=== PATIENT | male | born 1935 | race Caucasian/White ===

== ENCOUNTER 2020-07-31 13:18 | Outpatient (REF) | payer MEDICARE, SELFPAY ==
--- NOTE | 2020-07-31 13:20 | US_ITS ---
EXAMINATION: BILATERAL LOWER EXTREMITY DUPLEX ULTRASOUND CLINICAL INFORMATION: History of peripheral vascular disease. TECHNIQUE: Duplex Doppler techniques with wave form analysis and measurement of velocities in the common femoral, profunda femoral, superficial femoral, popliteal and tibial arteries was performed bilaterally. COMPARISON: None FINDINGS: LOWER EXTREMITY DUPLEX ULTRASOUND: RIGHT LEG: Common femoral artery: 95.3 cm/s, Diastolic flow reversal: Yes Profunda femoris artery: 101 cm/s, Diastolic flow reversal: Yes Superficial femoral artery (proximal): 89.7 cm/s, Diastolic flow reversal: Yes Superficial femoral artery (mid): 64.8 cm/s, Diastolic flow reversal: Yes Superficial femoral artery (distal): 65.3 cm/s, Diastolic flow reversal: Yes Popliteal artery: 44.8 cm/s, Diastolic flow reversal: Yes Posterior tibial artery: 84.5 cm/s, Diastolic flow reversal: Yes LEFT LEG: Common femoral artery: 114 cm/s, Diastolic flow reversal: Yes Profunda femoris artery: 60 cm/s, Diastolic flow reversal: Yes Superficial femoral artery (proximal): 73 cm/s, Diastolic flow reversal: Yes Superficial femoral artery (mid): 57.6 cm/s, Diastolic flow reversal: Yes Superficial femoral artery (distal): 65.9 cm/s, Diastolic flow reversal: Yes Popliteal artery: 56.6 cm/s, Diastolic flow reversal: Yes Posterior tibial artery: 67.7 cm/s, Diastolic flow reversal: Yes US/US arterial duplex LE BI IMPRESSION: RIGHT LEG: No evidence of hemodynamically significant arterial occlusive disease. LEFT LEG: No evidence of hemodynamically significant arterial occlusive disease.
== END 2020-07-31 13:19 | disposition home or self-care (01) ==
LOC: HO.US 13:18
PROVIDERS: Visit Provider Internal Medicine
DX: I73.9 Peripheral vascular disease, unspecified (principal)
CPT/HCPCS: 93925

== ENCOUNTER 2020-08-16 10:19 | Day surgery (SDC) | payer MEDICARE, SELFPAY ==
[2020-08-09 15:09] VITALS: BMI 27.3
--- NOTE | 2020-08-15 09:02 | HO.ANESPROP2 ---
HPI - Anesthesia Eval Consult details Narrative: 85yo M for Colonoscopy Cardiology OV 05/2020 - stable for 6 month f/u. No change to regimen. PMFSH Active Problems Active Problems: All Active Problems (Updated 08/09/20 @ 15:08 by Jessenia Mcgill) Chronic myelogenous leukemia (CML), [id number] (Acute) PAD (peripheral artery disease) (Acute) Atrial fibrillation (Acute) Hypertension (Acute) Obstructive sleep apnea (Acute) Hypercholesterolemia (Acute) GERD (gastroesophageal reflux disease) (Acute) Coronary artery disease (Acute) Past Medical History Medical History Aortic stenosis Atrial fibrillation Benign prostatic hyperplasia Coronary artery disease GERD (gastroesophageal reflux disease) Glaucoma History of heart attack Hypercholesterolemia Hypertension Leg pain Moderate aortic stenosis Obstructive sleep apnea Sleep apnea Vitamin B12 deficiency Family History Family History Father No problems noted. Mother No problems noted. Brother Leukemia AML (acute myeloblastic leukemia) Son In good health Daughter In good health Surgical History Surgical History H/O rectal polypectomy History of cataract surgery History of cholecystectomy History of esophagogastroduodenoscopy (EGD) History of eye surgery History of tonsillectomy Hx of colonoscopy Status post right knee replacement Social History Social History (Updated 08/09/20 @ 15:09 by Jessenia Mcgill) Alcohol intake: current Alcohol intake frequency: holidays/special occasions only Smoking Status: Former smoker Meds Allergies Allergy/AdvReac Type Severity Reaction Status Date / Time No Known Allergies Allergy Verified 08/16/20 11:33 [No Known Allergies*] Home Medications Medication Instructions Recorded Confirmed Last Taken Type B12 1 tab PO DAILY 06/27/20 07/19/20 Unknown History amiodarone 100 mg PO DAILY 06/27/20 07/19/20 Unknown History aspirin 81 mg PO DAILY 06/27/20 07/19/20 08/09/20 History brimonidine 1 drp OPHTHALMIC (EYE) BID 06/27/20 07/19/20 Unknown History ferrous sulfate 325 mg PO DAILY 06/27/20 07/19/20 08/09/20 History hydrochlorothiazide 12.5 mg PO DAILY PRN 06/27/20 07/19/20 Unknown History imatinib 600 mg PO DAILY 06/27/20 07/19/20 Unknown History latanoprost 1 drp OPHTHALMIC (EYE) DAILY 06/27/20 07/19/20 Unknown History metoprolol succinate 50 mg PO DAILY 06/27/20 07/19/20 Unknown History omeprazole 20 mg PO BID 06/27/20 07/19/20 Unknown History timolol 1 drp OPHTHALMIC (EYE) DAILY 06/27/20 07/19/20 Unknown History ascorbic acid (vitamin C) 1,500 mg tab PO .QD tab 07/19/20 07/19/20 Unknown History tablet folic acid 1 mg tablet 1 mg PO DAILY 07/19/20 07/19/20 Unknown History Exam Exam Date and Time: August 15, 2020 0902 Height,Weight and Vital Signs: Height 5 ft 8 in Weight 81.647 kg Narrative Narrative: Echo 10/2018 Nml LV sys function Impaired relax LA mild dilated Mod Mild MR RV sys pressure nml No pericardial effusion EKG 11/2018 SR with 1st AV block Nonspec ST and T wave abn Assessment and Plan Assessment Anesthesia Assessment: Chart Reviewed
[2020-08-16 11:36] VITALS: BP 156/53; PULSE 47; RESP 18; TEMP 36.1; O2SAT 99
[2020-08-16] MEDS: Lactated Ringers 1,000 ML 50 ML IVCONT (12:01)
[2020-08-16 13:27] VITALS: BP 134/64; PULSE 58; RESP 12; TEMP 36; O2SAT 97
--- NOTE | 2020-08-16 13:30 | PM.OP ---
Brief Operative Note Date of Service: 08/16/20 Pre-op diagnosis: Screening Post-op diagnosis: other (Colon polyp) Procedure: Colonoscopy to cecum and TI with snare polypectomy and placement of Resolution clips x 2 Surgeon: Darius Wheeler Anesthesia: MAC Estimated blood loss (mL): 3.0 Pathology: other (A. Proximal ascending colon polyp) Condition: stable Disposition: PACU
[2020-08-16 13:45] VITALS: BP 115/67; PULSE 54; RESP 18; TEMP 36; O2SAT 95
--- NOTE | 2020-08-16 13:53 | OP_ITS ---
SURGEON: Darius Wheeler MD INDICATIONS: Full consent has been obtained from him for this, including risks of bleeding and perforation. PREOPERATIVE DIAGNOSIS: POSTOPERATIVE DIAGNOSIS: PROCEDURE PERFORMED: Colonoscopy to the cecum and terminal ileum with snare polypectomy and placement of 2 resolution clips. ESTIMATED BLOOD LOSS: COMPLICATIONS: ANESTHESIA: Monitored anesthesia care. ASSISTANTS: SPECIMENS: PREOPERATIVE DIAGNOSES: Colorectal cancer screening and personal history of tubular adenoma of the colon. POSTOPERATIVE DIAGNOSES: Colorectal cancer screening and personal history of tubular adenoma of the colon, colon polyp, diverticulosis and internal hemorrhoids. DESCRIPTION OF PROCEDURE: The patient was placed in the left lateral decubitus position. The digital rectal exam revealed no abnormalities. The Olympus video pediatric colonoscope was entered into the rectum and advanced easily to the cecum. Once in the cecum, I did identify normal-appearing cecal pouch with appendiceal orifice and a normal-appearing ileocecal valve. The terminal ileum was cannulated and appeared normal. The scope was withdrawn back in the colon. The entire cecum and ileocecal valve appeared normal. The scope was slowly withdrawn assessing all mucosal surfaces carefully. Preparation was excellent. In the very proximal ascending colon, in the area inferior to the lower portion of the ileocecal valve, was a flat but raised approximately 12-15 mm polyp, which was snared and removed in piecemeal fashion and recovered by suction. The polypectomy site appeared to be clean, without any sign of residual polyp nor bleeding. Two resolution clips were placed on the polypectomy site with good deployment and good hemostasis. I did not visualize any other polyps, colitis, nor angiodysplasia. There was a mild amount of sigmoid diverticulosis. In the rectum, scope was retroflexed visualizing internal hemorrhoids, but no other pathology. The rectal mucosa appeared normal. The scope was straightened out and withdrawn from the patient. He tolerated the procedure well and was returned to recovery area in stable condition. IMPRESSION: 1. Colon polyp, status post snare polypectomy. 2. Diverticulosis. 3. Internal hemorrhoids. PLAN: The results of the pathology will be checked. At this point given these findings and his age, I do not think he will need any further colonoscopies in the future. He was advised not to use any aspirin or NSAIDs for 1 week. MD JOE Campuzano/MARGOL / [id number] SHARMIN
== END 2020-08-16 14:23 | disposition home or self-care (01) ==
PROVIDERS: PCP Internal Medicine; Visit Provider Internal Medicine
PROC: 0DJD8ZZ Inspection of Lower Intestinal Tract, Via Natural or Artificial Opening Endoscopic (ICD-10-PCS; CPT 45378; principal; 2020-08-16 12:00)
DX: Z12.11 Encounter for screening for malignant neoplasm of colon (principal); D12.2 Benign neoplasm of ascending colon; K57.30 Diverticulosis of large intestine without perforation or abscess without bleeding; K64.8 Other hemorrhoids; Z86.010 Personal history of colon polyps; I10 Essential (primary) hypertension; I25.2 Old myocardial infarction; Z79.82 Long term (current) use of aspirin; Z79.899 Other long term (current) drug therapy
CPT/HCPCS: 45385; 88305

== ENCOUNTER 2020-09-28 07:23 | Outpatient (REF) | payer MEDICARE, SELFPAY ==
[2020-09-28 08:06] LABS: MANUAL DIFF FLAG NO
[2020-09-28 08:15] LABS: Basophils Percent Auto 0.7 % (0-2); Eosinophils Absolute Auto 0.1 X10*3/uL (0.0-0.4); Hematocrit 29.9 % (42-52); Hemoglobin 9.9 g/dl (14.0-18.0); Imm Gran Abs Auto 0.01 X10*3/uL (0.00-0.03); Imm Gran Pct Auto 0.3 % (0.0-0.4); Lymphocytes Absolute Auto 0.9 X10*3/uL (1.2-4.9); Lymphocytes Percent Auto 31.4 % (20-40); Mean Corpuscular HGB Conc 33.1 g/dl (31.0-36.0); Mean Corpuscular Hemoglobin 36.4 pg (27.0-33.0); Mean Corpuscular Volume 109.9 fL (80-98); Mean Platelet Volume 9.6 fL (9.4-12.4); Monocytes Absolute Auto 0.2 X10*3/uL (0.1-1.2); Monocytes Percent Auto 7.2 % (2-11); Neutrophils Absolute Auto 1.7 X10*3/uL (2.0-8.3); Neutrophils Percent Auto 58.4 % (45-73); Platelet Count 170 X10*3/uL (160-400); Red Blood Count 2.72 X10*6/uL (4.60-5.80); Red Cell Distribution Width 14.7 % (11.0-16.0); White Blood Count 2.9 X10*3/uL (4.8-10.8)
[2020-09-28 08:49] LABS: B Type Natriuretic Peptide 121 pg/mL (<100)
[2020-09-28 10:01] LABS: Alanine Aminotransferase 8 U/L (0-40); Albumin Level 3.4 g/dL (3.5-5.0); Alkaline Phosphatase 47 U/L (39-117); Anion Gap 8 (12-20); Aspartate Amino Transferase 14 U/L (5-37); Bilirubin Total 0.3 mg/dL (0.0-1.0); Blood Urea Nitrogen 15 mg/dL (9-16); Calcium 7.8 mg/dL (8.4-10.2); Carbon Dioxide 30 mmol/L (22-29); Chloride 109 mmol/L (96-108); Cholesterol 123 mg/dL; Estimated Glomerular Filt Rate > 60; Free T4 (Free Thyroxine) 0.94 ng/dL (0.71-1.85); Glucose Random 100 mg/dL (60-115); HDL Cholesterol 36 mg/dL; LDL Cholesterol Calculated 74 mg/dl; Potassium 4.6 mmol/L (3.3-5.1); Sodium 142 mmol/L (135-145); Triglycerides 66 mg/dL; Uric Acid 4.9 mg/dL (3.4-7.0)
== END 2020-09-28 07:24 | disposition home or self-care (01) ==
LOC: HO.LAB 07:23
PROVIDERS: Absent Provider Internal Medicine Medical Oncology; PCP Internal Medicine; Visit Provider Internal Medicine
DX: C92.10 Chronic myeloid leukemia, BCR/ABL-positive, not having achieved remission (principal); E78.00 Pure hypercholesterolemia, unspecified; I48.0 Paroxysmal atrial fibrillation
CPT/HCPCS: 36415; 80053; 80061; 81206; 81207; 83880; 84439; 84443; 84550; 85025

== ENCOUNTER 2020-12-15 10:05 | Outpatient (REF) | payer MEDICARE, SELFPAY ==
--- NOTE | ~2020-12-15 | XR_ITS ---
EXAMINATION: XR BILATERAL HIPS WITH AP PELVIS CLINICAL INFORMATION: Sciatica COMPARISON: None TECHNIQUE: AP view of the pelvis and 2 views of each hip were obtained. FINDINGS: Bone alignment is normal. No fracture or dislocation is seen. There is mild bilateral hip arthritis with joint space narrowing and osteophyte formation. Bones of the pelvis are unremarkable. There are degenerative changes of the lower lumbar spine. Soft tissues are unremarkable. XR/XR hip BI w [id number] IMPRESSION: Mild bilateral hip arthritis.
[2020-12-15 10:58] LABS: MANUAL DIFF FLAG NO
[2020-12-15 11:06] LABS: Basophils Percent Auto 0.6 % (0-2); Eosinophils Percent Auto 1.1 % (0-4); Hematocrit 32.6 % (42-52); Hemoglobin 10.8 g/dl (14.0-18.0); Imm Gran Abs Auto 0.01 X10*3/uL (0.00-0.03); Imm Gran Pct Auto 0.3 % (0.0-0.4); Lymphocytes Absolute Auto 1.1 X10*3/uL (1.2-4.9); Mean Corpuscular HGB Conc 33.1 g/dl (31.0-36.0); Mean Corpuscular Hemoglobin 35.9 pg (27.0-33.0); Mean Corpuscular Volume 108.3 fL (80-98); Mean Platelet Volume 10.1 fL (9.4-12.4); Monocytes Absolute Auto 0.2 X10*3/uL (0.1-1.2); Monocytes Percent Auto 6.6 % (2-11); Neutrophils Absolute Auto 2.1 X10*3/uL (2.0-8.3); Neutrophils Percent Auto 60.4 % (45-73); Platelet Count 158 X10*3/uL (160-400); Red Blood Count 3.01 X10*6/uL (4.60-5.80); Red Cell Distribution Width 15.3 % (11.0-16.0); White Blood Count 3.5 X10*3/uL (4.8-10.8)
[2020-12-15 11:25] LABS: Alanine Aminotransferase 6 U/L (0-40); Albumin Level 3.7 g/dL (3.5-5.0); Alkaline Phosphatase 65 U/L (39-117); Anion Gap 11 (12-20); Aspartate Amino Transferase 16 U/L (5-37); Bilirubin Total 0.4 mg/dL (0.0-1.0); Blood Urea Nitrogen 18 mg/dL (9-16); Calcium 8.8 mg/dL (8.4-10.2); Carbon Dioxide 27 mmol/L (22-29); Chloride 112 mmol/L (96-108); Estimated Glomerular Filt Rate > 60; Glucose Random 103 mg/dL (60-115); Potassium 4.7 mmol/L (3.3-5.1); Sodium 145 mmol/L (135-145); Total Protein 5.5 g/dL (6.5-8.0)
[2020-12-15 11:37] LABS: Uric Acid 5.1 mg/dL (3.4-7.0)
[2020-12-15 11:44] LABS: Free T4 (Free Thyroxine) 1.05 ng/dL (0.71-1.85)
== END 2020-12-15 10:06 | disposition home or self-care (01) ==
LOC: HO.LAB 10:05
PROVIDERS: PCP Internal Medicine; Visit Provider Internal Medicine
DX: M54.30 Sciatica, unspecified side (principal); C92.11 Chronic myeloid leukemia, BCR/ABL-positive, in remission; I48.0 Paroxysmal atrial fibrillation; E78.00 Pure hypercholesterolemia, unspecified
CPT/HCPCS: 36415; 73521; 80053; 84439; 84550; 85025

== ENCOUNTER 2020-12-27 09:00 | Outpatient (RCR) | payer MEDICARE, SELFPAY ==
--- NOTE | 2021-05-04 11:25 | MHC.PT.DC ---
[facility] [place] [facility] [place] [facility] [place] Office [address] [phone] F: [phone] F: [phone] F: [phone] F: [phone] Physical Therapy Discharge Report Diagnosis: SCIATICA Date of Surgery: NA Date of Evaluation: 11/29/20 Date of Discharge: 05/04/21 Treatments to Date: 10 Cancellations to Date: No Shows to Date: Discharge Status: Independent with HEP Recommend MD Follow-up Discharge Summary: Pt LAST SEEN IN PT ON 01/05/21. PER THAT ASSESSMENT :' SIGNIFICANT FINDINGS ON MRI. MAY BENEFIT FROM NEUROSURGEON CONSULT.' PER PLAN FROM THAT NOTE:'DISCUSSION WITH PATIENT AND AGREED TO BE PUT ON HOLD UNTIL HE SPEAKS WITH DR LAL AND ?NEURO CONSULT' [ End ] Electronically signed by: DIAMOND PINTO PT Please sign and return to therapist. Thank you for your referral.
== END 2021-05-04 11:26 | disposition home or self-care (01) ==
LOC: HO.PT 09:00
PROVIDERS: PCP Internal Medicine; Visit Provider Internal Medicine
DX: M54.32 Sciatica, left side (principal)
CPT/HCPCS: 97110; 97140; 97161; 97530; 97535

== ENCOUNTER 2020-12-28 15:26 | Outpatient (REF) | payer MEDICARE, SELFPAY ==
--- NOTE | ~2020-12-28 | MR_ITS ---
MR LUMBAR SPINE WITHOUT CONTRAST CLINICAL INFORMATION: Lumbago with left-sided sciatica. COMPARISON: None available. TECHNIQUE: MRI of the lumbar spine was obtained using routine sequences without contrast. FINDINGS: There are 5 nonrib-bearing lumbar-type vertebral bodies. There is grade 1 anterolisthesis of L3 on L4 and L4 on L5. Small chronic endplate Schmorl's nodes throughout the thoracolumbar spine. Vertebral body heights overall maintained. Modic type I endplate signal changes at L1-L2 and L2-L3. There are no acute fractures. There is nonspecific bilateral perinephric stranding. Conus terminates at the L1 level. At T11-T12, a left lateral disc osteophyte and facet arthropathy result in moderate left-sided foraminal stenosis. L1-L2: There is a diffuse annular disc bulge and there is moderate bilateral facet arthropathy and ligamentum flavum thickening. Findings in concert result in bilateral subarticular zone stenosis with mass effect on the traversing L2 nerve roots bilaterally, as well as mild to moderate bilateral foraminal stenosis. L2-L3: There is a diffuse annular disc bulge the superimposed left paracentral disc protrusion that compresses the traversing left L3 nerve root within the left subarticular zone. Left lateral disc osteophyte and facet arthropathy result in moderate to severe left foraminal stenosis with mass effect on the exiting left L2 nerve root as well. L3-L4: There is a diffuse annular disc bulge with a superimposed left paracentral disc protrusion and a superiorly migrating right paracentral disc extrusion. Severe bilateral facet arthropathy and ligamentum flavum thickening. Findings in concert result in moderate to severe central canal stenosis, severe bilateral subarticular zone stenosis with compression of the traversing L4 nerve roots bilaterally as well as the right L3 nerve root within the right L3 lateral recess, and severe left and moderate to severe right foraminal stenosis with compression of the exiting left greater than right L3 nerve roots. L4-L5: Diffuse annular disc bulge that is in part disc osteophyte and severe bilateral facet arthropathy and ligamentum flavum thickening. Mild narrowing of the central canal. Severe right and moderate to severe left foraminal stenosis with compression of the exiting right greater than left L4 nerve roots. L5-S1: There is a shallow central disc protrusion that mildly indents the ventral thecal sac. Background annular disc bulge and severe bilateral facet arthropathy. Moderate left foraminal stenosis with mass effect on the exiting left L5 nerve root. MR/MR lumbar spine wo con IMPRESSION: At L5-S1, multifactorial degenerative changes result in moderate left foraminal stenosis with mild mass effect on the exiting left L5 nerve root. At L4-L5, advanced multifactorial degenerative changes result in severe right and moderate to severe left foraminal stenosis with compression of the exiting right greater than left L4 nerve roots. At L3-L4, grade 1 anterolisthesis and multifactorial degenerative changes including a left paracentral disc protrusion and a superiorly migrating right paracentral disc extrusion result in moderate to severe central canal stenosis, severe bilateral subarticular zone stenosis with compression of the traversing L4 nerve roots bilaterally, compression of the right L3 nerve root within the right L3 lateral recess, and severe left and moderate to severe right foraminal stenosis with compression of the exiting left greater than right L3 nerve roots. At L2-L3, a left paracentral disc protrusion compresses the traversing left L3 nerve root within the left subarticular zone and a left lateral disc osteophyte and facet arthropathy result in moderate to severe left foraminal stenosis with mass effect on the exiting left L2 nerve root as well. At L1-L2, multifactorial degenerative changes result in bilateral subarticular zone stenosis with mass effect on the traversing L2 nerve roots bilaterally.
--- NOTE | ~2020-12-28 | XR_ITS ---
EXAMINATION: PRE-MRI ORBIT SCREENING CLINICAL INFORMATION: Previous orbital surgery COMPARISON: None TECHNIQUE: 3 views FINDINGS: There is no radiopaque metallic foreign body seen in the orbits. The paranasal sinuses are well-aerated and clear. The mastoid sinuses are clear. No bony maxillofacial or orbital abnormality seen. XR/XR pre mri screening IMPRESSION: No radiopaque metallic foreign body seen in the orbits.
== END 2020-12-28 15:27 | disposition home or self-care (01) ==
LOC: HO.MRI 15:26
PROVIDERS: PCP Internal Medicine; Visit Provider Internal Medicine
DX: M54.42 Lumbago with sciatica, left side (principal); M54.41 Lumbago with sciatica, right side; G89.29 Other chronic pain
CPT/HCPCS: 72148

== ENCOUNTER 2021-02-10 18:09 | Inpatient (IN) | payer MEDICARE, SELFPAY ==
--- NOTE | ~2021-02-10 | CT_ITS ---
EXAMINATION: CT HEAD WITHOUT CONTRAST CT CERVICAL SPINE WITHOUT CONTRAST CLINICAL INFORMATION: Trauma. COMPARISON: None TECHNIQUE: Contiguous axial imaging was performed from the skull base to vertex without intravenous administration of contrast. Contiguous axial CT images of the cervical spine were obtained without contrast. Sagittal and coronal reformats were provided and reviewed. This CT examination was performed using dose optimization techniques as appropriate, variously including the following: *Automated exposure control. *Adjustment of mA and/or kV according to patient size (this includes techniques or standardized protocols for targeted exams where dose is matched to indication/reason for exam; i.e. extremities or head). *Use of iterative reconstruction technique. DLP: 1585 mGy-cm (total). FINDINGS: HEAD: There is no evidence of acute intracranial hemorrhage or territorial infarction. No abnormal mass effect or midline shift is seen. [id number] matter differentiation is well preserved. No extra-axial fluid collections are identified. The ventricles are normal in size. There is no abnormal attenuation within the brain parenchyma. Soft tissue swelling overlying the left frontal lobe. The calvarium is intact. The mastoid air cells and visualized portions of the paranasal sinuses are well aerated. CERVICAL SPINE: The cervical lordosis is maintained. Grade 1 anterolisthesis of C3 on C4. No acute fracture or subluxation. No loss of vertebral body height. Multilevel loss of intervertebral disc height, most prominent at L4-L5 and L5-S1. Prominent bilateral facet arthropathy with fusion of the right C2-C3 facets. No lytic or blastic osseous lesion. Unremarkable prevertebral soft tissues. No abnormal soft tissue mass or fluid collection. Small left thyroid calcification. Visualized lung apices are clear. Mild multilevel bilateral neural foraminal stenosis. CT/CT cervical spine wo con IMPRESSION: HEAD: No acute intracranial hemorrhage or mass effect. CERVICAL SPINE: No acute fracture. Grade 1 anterolisthesis of C3 on C4. Multilevel degenerative disease and bilateral facet arthropathy with mild multilevel bilateral facet arthropathy.
--- NOTE | ~2021-02-10 | CT_ITS ---
EXAMINATION: CT ABDOMEN AND PELVIS WITH CONTRAST CLINICAL INFORMATION: Perineal induration and fever; question abscess. COMPARISON: Prior CT examinations, most recently 02/10/2021. TECHNIQUE: Multidetector volumetric images were obtained from the superior aspect of the liver through the pubic symphysis following administration 85 mL of Omnipaque 350 intravenous contrast. Sagittal and coronal reformatted images were obtained on the technologist's workstation. Oral contrast: No This CT examination was performed using dose optimization techniques as appropriate, variously including the following: *Automated exposure control *Adjustment of mA and/or kV according to patient size (this includes techniques or standardized protocols for targeted exams where dose is matched to indication/reason for exam; i.e. extremities or head) *Use of iterative reconstruction technique DLP: 508 mGy-cm FINDINGS: LUNG BASES: There are small bilateral pleural effusions. There are coronary artery atherosclerotic calcifications. LIVER, GALLBLADDER, AND BILIARY TREE: The liver is normal in size, shape, and attenuation. No focal hepatic lesion is seen. There is biliary gas, consistent with a prior sphincterotomy. The gallbladder is surgically absent. PANCREAS: Unremarkable. SPLEEN: Unremarkable. ADRENAL GLANDS: Unremarkable. KIDNEYS AND URETERS: The kidneys are normal in size, shape, and attenuation. No hydronephrosis, hydroureter, or calculi seen. There is nonspecific bilateral perinephric stranding and thickening of the pararenal fascia layers, which appears stable from prior CT examinations including 10/07/2016.. BLADDER: Unremarkable. GASTROINTESTINAL TRACT: There is a multiloculated fluid and gas collection situated circumferential to anal region (3:89). This finding is consistent with a perianal abscess. The abscess extends into the left anterolateral perianal subcutaneous tissues, where there is a further 5.4 x 3.0 cm abscess cavity (3:95). There is adjacent vigorous fat stranding, which extends anteriorly into the perineum. ABDOMINAL WALL: There is a tiny fat-containing umbilical hernia. There is mild generalized anasarca. LYMPH NODES: There are shotty, nonpathologically enlarged para-aortic, bilateral iliac chain and inguinal lymph nodes. VASCULAR: There is mild to moderate aortoiliac atherosclerotic calcification. No abdominal aortic aneurysm is seen. PELVIC VISCERA: The prostate and seminal vesicles are unremarkable. Small fluid density bilateral hydroceles are suspected, incompletely included in the [id number]. OSSEOUS STRUCTURES: There is multi-level thoracolumbar degenerative disc disease, spondylosis and facet arthropathy. Degenerative disc disease is most pronounced extending from L1-L2 to L5-S1. No acute or aggressive osseous abnormality is seen. CT/CT abdomen pelvis w con IMPRESSION: 1. A perianal abscess is seen circumferential to the anus, with extension into the medial left gluteal subcutaneous tissues. There is adjacent vigorous fat stranding, which extends anteriorly into the perineum. Recommend General Surgery evaluation and management. 2. The gallbladder surgically absent. 3. Small bilateral hydroceles are questioned, incompletely included in the [id number]. 4. There are multi-level degenerative changes of the thoracolumbar spine. 5. There are small bilateral pleural effusions. 6. There is mild anasarca. A preliminary report was provided by the [facility] on 02/15/2021.
--- NOTE | ~2021-02-10 | XR_ITS ---
EXAMINATION: XR CHEST CLINICAL INFORMATION: Fever COMPARISON: 02/10/2021 TECHNIQUE: Frontal view of the chest was obtained. FINDINGS: No infiltrate. Lung paula are felt to be comparable to previous. There is no failure or effusion. The heart size is comparable to previous. Tortuous versus ectatic arch and descending aorta. XR/XR chest 1V IMPRESSION: No acute finding
--- NOTE | ~2021-02-10 | XR_ITS ---
EXAMINATION: XR CHEST CLINICAL INFORMATION: Fall. COMPARISON: Most recent chest CT dated 12/13/2018. TECHNIQUE: Frontal view of the chest was obtained. FINDINGS: Previously seen airspace consolidations have resolved. Multiple healed left-sided rib fractures are redemonstrated. No pleural effusion or pneumothorax. Stable cardiomediastinal silhouette. XR/XR chest 1V IMPRESSION: No acute cardiopulmonary findings. Resolution of previously seen bilateral airspace opacities.
--- NOTE | ~2021-02-10 | XR_ITS ---
EXAMINATION: XR KNEE, RIGHT CLINICAL INFORMATION: Fall. COMPARISON: None TECHNIQUE: AP and lateral views of the right knee. FINDINGS: Total right knee arthroplasty. No acute hardware or osseous fracture. No periarticular lucency to suggest loosening or infection. No significant joint effusion. Atherosclerotic calcifications. XR/XR knee RT 2V IMPRESSION: Total right knee arthroplasty without evidence of complication.
--- NOTE | ~2021-02-10 | CT_ITS ---
EXAMINATION: CT PELVIS WITHOUT CONTRAST CLINICAL INFORMATION: Pain following fall. COMPARISON: CT abdomen/pelvis dated 10/07/2016. TECHNIQUE: Helical scanning was performed with submillimeter collimation through the pelvis. Sagittal and coronal multiplanar 2-D reconstructions were obtained. This CT examination was performed using dose optimization techniques as appropriate, variously including the following: *Automated exposure control. *Adjustment of mA and/or kV according to patient size (this includes techniques or standardized protocols for targeted exams where dose is matched to indication/reason for exam; i.e. extremities or head). *Use of iterative reconstruction technique. DLP: 1585 mGy-cm (total). FINDINGS: PELVIS: No intra-abdominal mass or fluid collection. The visualized pelvic bowel loops are unremarkable. Prostate calcifications. No significant pelvic wall hernia. OSSEOUS STRUCTURES: No acute fracture or dislocation. Mild bilateral hip joint space narrowing with small marginal osteophytes and prominence of subchondral cystic change. No concerning lytic or blastic osseous lesion. Probable bone island within the left iliac. CT/CT pelvis wo con IMPRESSION: 1. No acute fracture or dislocation. 2. [id number] bilateral hip osteoarthritis.
[2021-02-10 18:17] VITALS: BP 120/61; BP 130/70; PULSE 108; PULSE 96; RESP 22; TEMP 37.4; O2SAT 99; BMI 26.6
--- NOTE | 2021-02-10 18:33 | ECG_ITS ---
Test Reason : FALL Blood Pressure : / mmHG Vent. Rate : 100 BPM Atrial Rate : 100 BPM P-R Int : 000 ms QRS Dur : 078 ms QT Int : 390 ms P-R-T Axes : 000 007 065 degrees QTc Int : 503 ms Accelerated Junctional rhythm Nonspecific ST and T wave abnormality Prolonged QT Abnormal ECG When compared with ECG of 13-DEC-2018 08:34, Junctional rhythm has replaced Sinus rhythm Referred By: Mathew Zavala Electronically Signed By:NAYELI HICKS
--- NOTE | 2021-02-10 18:33 | ED.FALL ---
HPI - Fall General Chief Complaint: Fall Stated Complaint: FALL. ?LOC. AMS Time Seen by Provider: 02/10/21 18:26 Source: EMS Mode of arrival: EMS Limitations: no limitations History of Present Illness HPI Narrative: 85-year-old male who reports history of atrial fibrillation was previously anticoagulated and now currently just taking aspirin, hypertension, hyperlipidemia, glaucoma and recently had surgery in the right eye at [facility], history of leukemia in remission who presents via EMS from home after family found him on the ground. Story is that he states he tripped yesterday evening and fell down a couple stairs hit his head he loss consciousness he subsequently went to stand up shortly after he became dizzy and passed out again he was found this evening about 12-18 hours later by son as he was stuck between the door of the bathroom and EMS was called assisted him up. States he knows that he lost balance and fell did not have any chest pain, he does have a abrasion to the right side of the forehead region he however denies any pain of the head, neck he does have cervical collar in place. He does report some slight pain in the bilateral hips and right knee. Additionally states he has not been drinking much fluids recently. MD complaint: fall Onset (ago): day(s) Fall witnessed: no Place fall occurred: home Loss of consciousness: yes Length of LOC: minutes(s) Prolonged down time: yes and unclear Symptoms prior to fall: other (Initially he states he had a mechanical fall subsequently went to stand up and had a syncopal episode) Location of injury: head Severity: moderate Associated symptoms (after fall): denies Related Data Home Medications Medication Instructions Recorded Confirmed amiodarone 100 mg tablet 100 mg PO DAILY 06/27/20 02/10/21 aspirin 81 mg tablet 81 mg PO DAILY 06/27/20 02/10/21 brimonidine 0.025 % eye drops 1 drp OPHTHALMIC (EYE) BID 06/27/20 02/10/21 metoprolol succinate 50 mg 50 mg PO DAILY 06/27/20 02/10/21 tablet,extended release 24 hr timolol 0.25 % eye drops 1 drp OPHTHALMIC (EYE) DAILY 06/27/20 02/10/21 ascorbic acid (vitamin C) 1,500 mg 1,000 tab PO .QD tab 07/19/20 02/10/21 tablet omeprazole 20 mg capsule,delayed 40 mg PO BEDTIME cap 11/07/20 02/10/21 release ferrous sulfate 325 mg (65 mg 325 mg PO DAILY 12/26/20 02/10/21 iron) tablet folic acid 400 mcg tablet 0.4 mg PO DAILY 12/26/20 02/10/21 latanoprost 1 drp ONCE 12/29/20 02/10/21 moxifloxacin 0.5 % eye drops drp OPHTHALMIC-RIGHT 02/10/21 pilocarpine HCl 2 % eye drops 1 drp OPHTHALMIC (EYE) QID 02/10/21 02/10/21 prednisolone acetate 1 % eye 1 drp OPHTHALMIC (EYE) 02/10/21 drops,suspension Allergies Allergy/AdvReac Type Severity Reaction Status Date / Time No Known Allergies Allergy Verified 12/26/20 16:31 [No Known Allergies*] Review of Systems Review of Systems: Constitutional: No Weight loss, No Fever, No Chills, No Night Sweats, No Fatigue, No Malaise ENT/Mouth: No Hearing loss, No Ear Pain, No Nasal Congestion, No Sinus Pain, No Hoarseness, No sore throat, No Rhinorrhea, No Swallowing Difficulty Eyes: No Eye Pain, No Swelling, No Redness, No Foreign Body, No Discharge, No Vision Changes Cardiovascular: No Chest Pain, No SOB, No Dyspnea on Exertion, No Orthopnea, No Edema, No Palpitations Respiratory: No Cough, No Sputum, No Wheezing, No Smoke Exposure, No Dyspnea Gastrointestinal: No Nausea, No Vomiting, No Diarrhea, No Constipation, No abdominal Pain, No Hematochezia, No Melena Genitourinary: no irregular bleeding, No Dysuria, No Urinary Frequency, No Hematuria, No Urinary Incontinence, No Urgency, No Flank Pain, No Urinary Flow Changes, No Hesitancy Musculoskeletal: No joint pain, No Myalgias, No Joint Swelling pain in the right knee and bilateral hip. Skin: No Skin Lesions, No rash Neuro: No Weakness, No Numbness, No Paresthesias, No Loss of Consciousness, No Dizziness, No Headache Psych: No Social Issues Heme/Lymph: No Bruising, No Bleeding,No Lymphadenopathy Endocrine: No Polyuria, No Polydipsia, No Temperature Intolerance Yes all other systems are reviewed and are negative PMFSH Past Medical History Medical History Aortic stenosis Atrial fibrillation Benign prostatic hyperplasia Coronary artery disease GERD (gastroesophageal reflux disease) Glaucoma History of heart attack Hypercholesterolemia Hypertension Leg pain Moderate aortic stenosis Obstructive sleep apnea Sleep apnea Status post placement of implantable loop recorder Vitamin B12 deficiency Surgical History H/O rectal polypectomy History of cataract surgery History of cholecystectomy History of esophagogastroduodenoscopy (EGD) History of eye surgery History of tonsillectomy Hx of colonoscopy Status post right knee replacement Family History Family History Father No problems noted. Mother No problems noted. Brother Leukemia AML (acute myeloblastic leukemia) Son In good health Daughter In good health Social History Social History Housing: Apartment Alcohol intake: current Alcohol intake frequency: holidays/special occasions only Patient Tobacco Use Status: Former Tobacco user Tobacco use type: Cigarette e-Cigarette/Vaping Use: Never Used Second Hand Smoke Exposure: No Advance Directives: No Advance Directives Information Provided: Yes service: Yes Current occupational status: retired Current occupational exposures/hazards: No Physical Exam Vital Signs: Vital Signs: Last Vital Signs Temp 98.2 F 02/11/21 01:22 Pulse 67 02/11/21 01:22 Resp 20 02/11/21 01:22 BP 106/54 L 02/11/21 01:22 Pulse Ox 98 02/11/21 01:22 Body Mass Index 26.6 Const: General: cooperative; No acute distress or intoxicated appearing Nutritional Appearance: average body habitus Orientation/consciousness: patient oriented x3 HENMT: Head: Yes normal to inspection Head images: 1. Superficial abrasion Ears: hearing grossly normal bilaterally Face images: 1. He has eye patch on the right eye from recent glaucoma surgery Eyes: General: appearance normal, both eyes and all related structures Visual Martin: normal visual martin by confrontation Neck: Neck: Yes normal visual inspection, No positive Brudzinski's sign, No positive Kernig's sign and No tender Thyroid: Thyroid normal Chest: Chest palpation & inspection: normal inspection of the chest Resp: Effort & Inspection: normal respiratory effort Auscultation: clear to auscultation bilaterally Cardio: Jugular venous distension: no JVD Rhythm: abnormal rhythm (Regularly irregular) GI: Inspection: Yes normal to inspection Percussion: Yes normal to percussion Auscultation: normal bowel sounds : General: Yes no CVA tenderness Back/Spine/Pelvis: Back: no CVA tenderness Skin: General skin exam: no rashes or lesions noted Neuro: General: patient oriented x3 Extrem: General: Yes normal to inspection Course Reevaluation(s) Reevaluation #1: Interviewed 85-year-old male with above history presenting with complaint of mechanical fall subsequent syncopal episode prolonged down time on the ground found by family. His only complaint upon arrival is some mild bilateral hip pain and right knee pain otherwise denies any other pain discomfort does have a large abrasion to the forehead region does have a cervical collar in place. He does have significant underlying history however he denies any other pain or discomfort no recent illness. He did void today and states he makes urine. Will check labs specifically rule out rhabdo, electrolytes, troponin, EKG, head and cervical spine CT as well as pelvis CT given his bilateral hip pains and right knee x-ray. No recent illness and no signs or symptoms or infectious allergy upon arrival. Does not have any symptoms to suggest acute CVA. Reevaluation #2: Labs reviewed CBC comes back with AGH of 8.5/23 slightly lower than his baseline lowers his van is 9.9/29 he denies any melena, his electrolytes show potassium 2.7, BUN 22, creatinine of 1.42 baseline around 1, CK of 02/16/2037, initial troponin of 6770 with albumin of 3.4. He denies any chest pain EKG nondiagnostic. Plan for hydration he received 1 L of fluid will continue with gradual hydration. He has no chest pain or shortness of breath or any other complaints. Imaging of his head, cervical spine, chest as well as pelvis and right knee without acute pathology. Plan for consultation with Cardiology and admission. Reevaluation #3: Repeat troponin without delta EKG repeat without any acute changes. Case discussed with Dr. Fernandez regarding recommendation for potential anticoagulation given elevated to open this is secondary to rhabdo and he recommends against anticoagulation. Case discussed with hospitalist for admission. Consultations Consultation #1: Cardiology Dr. Fernandez Consultation #2: Hospitalist Dr. Peters [facility] - Fall Lab Data Result diagrams: 02/10/21 18:55 02/10/21 18:55 Labs: Lab Results 02/10/21 02/10/21 02/10/21 Range/Units 18:55 18:55 18:55 WBC 8.2 (4.8-10.8) X10*3/uL RBC 2.36 L (4.60-5.80) X10*6/uL Hgb 8.5 L D (14.0-18.0) g/dl Hct 23.2 L D (42-52) % MCV 98.3 H (80-98) fL MCH 36.0 H (27.0-33.0) pg MCHC 36.6 H (31.0-36.0) g/dl RDW 14.6 (11.0-16.0) % Plt Count 137 L (160-400) X10*3/uL MPV 10.3 (9.4-12.4) fL Immature Gran % (Auto) Cancelled Neut % (Auto) Cancelled Lymph % (Auto) Cancelled [place] % (Auto) Cancelled Eos % (Auto) Cancelled Baso % (Auto) Cancelled Lymph # (Auto) Cancelled [place] # (Auto) Cancelled Eos # (Auto) Cancelled Baso # (Auto) Cancelled Abs Immat Gran (auto) Cancelled Absolute Neuts (auto) Cancelled Absolute Nucleated RBC 0.000 (0.0-0.012) X10*3/uL Nucleated RBC % (auto) 0.0 (0.0-0.2) /100WBC Neutrophils % (Manual) 53 (45-73) % Band Neutrophils % 29 H (3-5) % Lymphocytes % (Manual) 12 L (20-40) % Monocytes % (Manual) 4 (2-11) % Metamyelocytes % 2 % Abs Neuts (Manual) 6.7 (2.2-7.9) X10*3/uL Lymphocytes # (Manual) 1.0 (0.6-4.8) X10*3/uL Monocytes # (Manual) 0.3 (0.0-1.2) X10*3/uL Metamyelocytes # 0.2 X10*3/uL Platelet Estimate SLIGHTLY DECREASED (NORMAL) Plt Morphology Comment NORMAL RBC Morphology NOTED Polychromasia 2+ (3-5) /OIF Macrocytosis 1+ (5-14) /OIF PT 12.2 (9.9-13.0) SEC INR 1.1 (0.9-1.1) APTT 29.1 (24.1-38.0) SEC Sodium (135-145) mmol/L Potassium (3.3-5.1) mmol/L Chloride (96-108) mmol/L Carbon Dioxide (22-29) mmol/L Anion Gap (12-20) BUN (9-16) mg/dL Creatinine (0.5-1.4) mg/dL Estim Creat Clear Calc Estimated GFR Random Glucose (60-115) mg/dL Calcium (8.4-10.2) mg/dL Ferritin (20-250) ng/mL Total Bilirubin (0.0-1.0) mg/dL AST (5-37) U/L ALT (0-40) U/L Alkaline Phosphatase (39-117) U/L Total Creatine Kinase 2837 H (38-174) U/L Troponin I High Sens (<3.5-35.0) ng/L Total Protein (6.5-8.0) g/dL Albumin (3.5-5.0) g/dL Urine Color Urine Appearance Urine pH (5.0-8.0) Ur Specific [place] (1.005-1.025) Urine Protein (NEG-TRACE) MG/DL Urine Glucose (UA) (NEG) MG/DL Urine Ketones (NEG) MG/DL Urine Blood (NEG) Urine Nitrite (NEG) Ur Leukocyte Esterase (NEG) Urine RBC (0) /HPF Urine WBC (0-4) /HPF Ur Squamous Epith Cells /LPF Urine Bacteria /LPF Urine Mucus /LPF COVID-19 (ISMAEL) (Negative) COVID-19 Clin Com 02/10/21 02/10/21 02/10/21 Range/Units 18:55 18:55 18:55 WBC (4.8-10.8) X10*3/uL RBC (4.60-5.80) X10*6/uL Hgb (14.0-18.0) g/dl Hct (42-52) % MCV (80-98) fL MCH (27.0-33.0) pg MCHC (31.0-36.0) g/dl RDW (11.0-16.0) % Plt Count (160-400) X10*3/uL MPV (9.4-12.4) fL Immature Gran % (Auto) Neut % (Auto) Lymph % (Auto) [place] % (Auto) Eos % (Auto) Baso % (Auto) Lymph # (Auto) [place] # (Auto) Eos # (Auto) Baso # (Auto) Abs Immat Gran (auto) Absolute Neuts (auto) Absolute Nucleated RBC (0.0-0.012) X10*3/uL Nucleated RBC % (auto) (0.0-0.2) /100WBC Neutrophils % (Manual) (45-73) % Band Neutrophils % (3-5) % Lymphocytes % (Manual) (20-40) % Monocytes % (Manual) (2-11) % Metamyelocytes % % Abs Neuts (Manual) (2.2-7.9) X10*3/uL Lymphocytes # (Manual) (0.6-4.8) X10*3/uL Monocytes # (Manual) (0.0-1.2) X10*3/uL Metamyelocytes # X10*3/uL Platelet Estimate (NORMAL) Plt Morphology Comment RBC Morphology Polychromasia /OIF Macrocytosis /OIF PT (9.9-13.0) SEC INR (0.9-1.1) APTT (24.1-38.0) SEC Sodium 143 (135-145) mmol/L Potassium 2.7 L D (3.3-5.1) mmol/L Chloride 118 H (96-108) mmol/L Carbon Dioxide 13 L (22-29) mmol/L Anion Gap 15 (12-20) BUN 22 H (9-16) mg/dL Creatinine 1.42 H (0.5-1.4) mg/dL Estim Creat Clear Calc 36.7 Estimated GFR 47 Random Glucose 105 (60-115) mg/dL Calcium 8.3 L (8.4-10.2) mg/dL Ferritin 409 H (20-250) ng/mL Total Bilirubin 1.2 H (0.0-1.0) mg/dL AST 86 H (5-37) U/L ALT 41 H (0-40) U/L Alkaline Phosphatase 79 D (39-117) U/L Total Creatine Kinase (38-174) U/L Troponin I High Sens 6570.1 H* (<3.5-35.0) ng/L Total Protein 5.3 L (6.5-8.0) g/dL Albumin 3.4 L (3.5-5.0) g/dL Urine Color YELLOW Urine Appearance HAZY Urine pH 6.0 (5.0-8.0) Ur Specific [place] 1.020 (1.005-1.025) Urine Protein 1+ H (NEG-TRACE) MG/DL Urine Glucose (UA) NEG (NEG) MG/DL Urine Ketones 5 (NEG) MG/DL Urine Blood 3+ H (NEG) Urine Nitrite NEG (NEG) Ur Leukocyte Esterase NEG (NEG) Urine RBC 10-14 H (0) /HPF Urine WBC 1-4 (0-4) /HPF Ur Squamous Epith Cells TRACE /LPF Urine Bacteria TRACE /LPF Urine Mucus TRACE /LPF COVID-19 (ISMAEL) (Negative) COVID-19 Clin Com 02/10/21 02/10/21 Range/Units 21:14 22:37 WBC (4.8-10.8) X10*3/uL RBC (4.60-5.80) X10*6/uL Hgb (14.0-18.0) g/dl Hct (42-52) % MCV (80-98) fL MCH (27.0-33.0) pg MCHC (31.0-36.0) g/dl RDW (11.0-16.0) % Plt Count (160-400) X10*3/uL MPV (9.4-12.4) fL Immature Gran % (Auto) Neut % (Auto) Lymph % (Auto) [place] % (Auto) Eos % (Auto) Baso % (Auto) Lymph # (Auto) [place] # (Auto) Eos # (Auto) Baso # (Auto) Abs Immat Gran (auto) Absolute Neuts (auto) Absolute Nucleated RBC (0.0-0.012) X10*3/uL Nucleated RBC % (auto) (0.0-0.2) /100WBC Neutrophils % (Manual) (45-73) % Band Neutrophils % (3-5) % Lymphocytes % (Manual) (20-40) % Monocytes % (Manual) (2-11) % Metamyelocytes % % Abs Neuts (Manual) (2.2-7.9) X10*3/uL Lymphocytes # (Manual) (0.6-4.8) X10*3/uL Monocytes # (Manual) (0.0-1.2) X10*3/uL Metamyelocytes # X10*3/uL Platelet Estimate (NORMAL) Plt Morphology Comment RBC Morphology Polychromasia /OIF Macrocytosis /OIF PT (9.9-13.0) SEC INR (0.9-1.1) APTT (24.1-38.0) SEC Sodium (135-145) mmol/L Potassium (3.3-5.1) mmol/L Chloride (96-108) mmol/L Carbon Dioxide (22-29) mmol/L Anion Gap (12-20) BUN (9-16) mg/dL Creatinine (0.5-1.4) mg/dL Estim Creat Clear Calc Estimated GFR Random Glucose (60-115) mg/dL Calcium (8.4-10.2) mg/dL Ferritin (20-250) ng/mL Total Bilirubin (0.0-1.0) mg/dL AST (5-37) U/L ALT (0-40) U/L Alkaline Phosphatase (39-117) U/L Total Creatine Kinase (38-174) U/L Troponin I High Sens 6604.9 H* (<3.5-35.0) ng/L Total Protein (6.5-8.0) g/dL Albumin (3.5-5.0) g/dL Urine Color Urine Appearance Urine pH (5.0-8.0) Ur Specific [place] (1.005-1.025) Urine Protein (NEG-TRACE) MG/DL Urine Glucose (UA) (NEG) MG/DL Urine Ketones (NEG) MG/DL Urine Blood (NEG) Urine Nitrite (NEG) Ur Leukocyte Esterase (NEG) Urine RBC (0) /HPF Urine WBC (0-4) /HPF Ur Squamous Epith Cells /LPF Urine Bacteria /LPF Urine Mucus /LPF COVID-19 (ISMAEL) Negative (Negative) COVID-19 Clin Com See Note Discharge Plan Discharge Clinical Impression: Fall, Syncope, Elevated troponin, DELMA (acute kidney injury), Rhabdomyolysis Patient Disposition: Admitted As Inpatient Interventions: Admission Worksheet (ED) Last Done: 02/11/21 02:08 Discharge Date/Time: 02/11/21 02:10
--- NOTE | 2021-02-10 19:00 | PC.NURSE ---
Labs and UA obtained. concrete technician at bedside for EKG.
[2021-02-10] MEDS: 0.9 % Sodium Chloride 1,000 ML 999 ML IV (19:02)
[2021-02-10 19:08] LABS: Hematocrit 23.2 % (42-52); Hemoglobin 8.5 g/dl (14.0-18.0); Mean Corpuscular HGB Conc 36.6 g/dl (31.0-36.0); Mean Corpuscular Volume 98.3 fL (80-98); Mean Platelet Volume 10.3 fL (9.4-12.4); Platelet Count 137 X10*3/uL (160-400); Red Blood Count 2.36 X10*6/uL (4.60-5.80); Red Cell Distribution Width 14.6 % (11.0-16.0); White Blood Count 8.2 X10*3/uL (4.8-10.8)
[2021-02-10 19:09] LABS: Glucose Urine UA NEG (NEG); Leukocyte Esterase Urine NEG (NEG); Nitrite Urine NEG (NEG); UACC Culture Trigger NO; Urine Blood 3+ (NEG); Urine Ketones 5 MG/DL (NEG); Urine Protein 1+ MG/DL (NEG-TRACE)
[2021-02-10 19:11] LABS: Appearance Urine HAZY; Color Urine YELLOW
[2021-02-10 19:14] LABS: INTERNATIONAL NORM RATIO 1.1 (0.9-1.1); Prothrombin Time 12.2 SEC (9.9-13.0)
[2021-02-10 19:16] LABS: Bacteria Urine TRACE /LPF; Mucus Urine TRACE /LPF; Squamous Epithelial Cell Urine TRACE /LPF
[2021-02-10 19:17] LABS: Partial Thromboplastin Time 29.1 SEC (24.1-38.0)
--- NOTE | 2021-02-10 19:32 | PC.NURSE ---
Off to CT on hospital bed.
--- NOTE | 2021-02-10 19:37 | PC.NURSE ---
Pt returns from CT on hospital bed.
[2021-02-10 19:38] LABS: Band Neutrophils Percent 29 % (3-5); Lymphocytes Percent Manual 12 % (20-40); Metamyelocytes Absolute 0.2 X10*3/uL; Metamyelocytes Percent 2 %; Monocytes Absolute Manual 0.3 X10*3/uL (0.0-1.2); Monocytes Percent Manual 4 % (2-11); Neutrophils Absolute Manual 6.7 X10*3/uL (2.2-7.9); Neutrophils Percent Manual 53 % (45-73)
[2021-02-10 19:39] LABS: Macrocytosis 1+ (5-14) /OIF; Polychromasia 2+ (3-5) /OIF; RBC Morphology NOTED
[2021-02-10 19:40] LABS: Platelet Estimate SLIGHTLY DECREASED (NORMAL); Platelet Morphology Comment NORMAL
[2021-02-10 19:43] LABS: Alanine Aminotransferase 41 U/L (0-40); Albumin Level 3.4 g/dL (3.5-5.0); Alkaline Phosphatase 79 U/L (39-117); Anion Gap 15 (12-20); Aspartate Amino Transferase 86 U/L (5-37); Bilirubin Total 1.2 mg/dL (0.0-1.0); Blood Urea Nitrogen 22 mg/dL (9-16); Calcium 8.3 mg/dL (8.4-10.2); Carbon Dioxide 13 mmol/L (22-29); Chloride 118 mmol/L (96-108); Creatinine Clr Calc Pharmacy 36.7; Estimated Glomerular Filt Rate 47; Glucose Random 105 mg/dL (60-115); Potassium 2.7 mmol/L (3.3-5.1); Sodium 143 mmol/L (135-145); Total Protein 5.3 g/dL (6.5-8.0)
[2021-02-10 19:51] VITALS: BP 130/57; RESP 22; O2SAT 97
--- NOTE | 2021-02-10 20:13 | ECG_ITS ---
Test Reason : REPEAT Blood Pressure : / mmHG Vent. Rate : 084 BPM Atrial Rate : 084 BPM P-R Int : 204 ms QRS Dur : 084 ms QT Int : 416 ms P-R-T Axes : 089 002 038 degrees QTc Int : 491 ms Normal sinus rhythm Cannot rule out Inferior infarct , age undetermined Abnormal ECG When compared with ECG of 10-FEB-2021 19:01, Sinus rhythm has replaced Junctional rhythm Referred By: Mathew Zavala Electronically Signed By:NAYELI HICKS
[2021-02-10] MEDS: Potassium Chloride/H20 10 MEQ/100 ML PIGGYBACK 100 MEQ IV (20:23)
--- NOTE | 2021-02-10 20:46 | PC.NURSE ---
This RN updating family on pt condition and plan of care.
[2021-02-10 21:13] VITALS: BP 102/49; PULSE 80; RESP 24; O2SAT 100
--- NOTE | 2021-02-10 21:14 | PC.NURSE ---
Repeat Troponin obtained and sent. VSS.
--- NOTE | 2021-02-10 21:54 | PC.NURSE ---
Pt provided bedpan per request, was unable to have successful BM. Pt requesting stool softener, this RN to request from provider. Stretcher remains in lowest locked position, rails raised x 2, call kimble within reach. Pt's daughter Sveta at bedside.
--- NOTE | 2021-02-10 22:23 | PC.NURSE ---
HAT DESIGNER at bedside discussing results and plan of care. VSS at this time.
[2021-02-10 22:24] VITALS: BP 103/47; PULSE 78; RESP 18; O2SAT 97
[2021-02-10 23:25] LABS: COVID-19 Test Negative (Negative); IDNOW Serial# 9DD0AD1C
[2021-02-10] MEDS: Lactated Ringers 1,000 ML 100 ML IVCONT (23:25)
[2021-02-10 23:26] VITALS: BP 90/45; PULSE 76; RESP 16; TEMP 38; O2SAT 96
--- NOTE | 2021-02-10 23:27 | PC.NURSE ---
MD contacted via [place] regarding elevated temp and hypotension. LR infusing per MAR. Awaiting room assignment.
[2021-02-10 23:43] VITALS: TEMP 38.4
--- NOTE | 2021-02-10 23:50 | P.HPHOSP_ITS ---
History of Present Illness Date of Service: 02/10/21 Chief Complaint: Fall This is an 85-year-old male with past medical history of aortic stenosis, AFib, BPH, CAD, GERD, HTN, HLD, who presents to the hospital after fall and syncope. Patient reports that he was in the bathroom, his slipped fell head his head than loss consciousness, he woke up few minutes later, tried to get up, slipped for 2nd time hit his head again and once again loss consciousness this time he is not sure for how long but reports that he woke up and was unable to get out of his bathroom and was on the bathroom floor all night until the next day afternoon when his family checked on him and found him on the floor. Patient denies any post ictal symptoms. He reports that prior to falling he had no symptoms of dizziness, no chest pain, palpitations or shortness of breath. no headache, no change in vision. He reports that he has not been eating or drinking well and may be contributing to his fall. He denies any abdominal pain nausea or vomiting, no diarrhea constipation, no urinary symptoms. Patient did have injuries on the had as a result of his falls, with minimal bleeding. Vitals on arrival are significant for temp of 99.4 but developed a fever of 101.2 while in the ED, heart rate of 96, respiratory rate of 22, blood pressure 120/61 that dropped to 90/45 while in the ED, satting 99% on room air Labs are significant for WBC count of 8.2, hemoglobin of 8.5 which dropped from 10.7 from December 2020, hematocrit 23.2, MCV of 98.3, platelets of 137 143, normal lactic acid. potassium of 2.7, chloride of 118, BUN of 22, creatinine of 1.4 to with a baseline around 1.2, ferritin 409 AST of 86 ALT of 41, CPK of 2837, troponin of 6570 trended up to 6604 UA positive for RBC COVID-19 negative. Stool occult negative. Cardiology was consulted regarding with troponin and recommended against heparin subQ. Given his hypotension as well as fever patient was given sepsis IV fluid resuscitation, blood cultures sent. Review of Systems Review of Systems: Yes all other systems are reviewed and are negative [facility] Medical History Aortic stenosis Atrial fibrillation Benign prostatic hyperplasia Coronary artery disease GERD (gastroesophageal reflux disease) Glaucoma History of heart attack Hypercholesterolemia Hypertension Leg pain Moderate aortic stenosis Obstructive sleep apnea Sleep apnea Status post placement of implantable loop recorder Vitamin B12 deficiency Family History Father No problems noted. Mother No problems noted. Brother Leukemia AML (acute myeloblastic leukemia) Son In good health Daughter In good health Surgical History H/O rectal polypectomy History of cataract surgery History of cholecystectomy History of esophagogastroduodenoscopy (EGD) History of eye surgery History of tonsillectomy Hx of colonoscopy Status post right knee replacement Social History Household Members: None Housing: Apartment Do you presently have visiting nurse or other home services: No Alcohol intake: current Alcohol intake frequency: holidays/special occasions only Patient Tobacco Use Status: Former Tobacco user Tobacco use type: Cigarette Smoked in Last 30 Days: No e-Cigarette/Vaping Use: Never Used Patient Interested in Nicotine Replacement: No Patient Given Instructions on How to Stop Smoking: No Second Hand Smoke Exposure: No Use of substances other than those prescribed or required for medical reasons: No Currently Displaying Signs/Symptoms of Drug Intoxication Withdrawal: No Any prior treatment program specific to substance use: No Have you been hit, kicked, punched, or otherwise hurt by someone within the past year? If so, by whom?: No Do you feel safe in your current relationship?: No Current Relationship Is there a partner from a previous relationship who is making you feel unsafe now?: No Are you made to feel afraid or neglected: No Advance Directives: No Advance Directives Information Provided: Yes Advance Directives on File: Yes Advance Directives Date on File: 02/11/21 Do you have thoughts of harming others: None Do you have a plan to hurt others: No Plan Recently lost weight without trying: No Eating poorly because of decreased appetite: No Nutrition Risks: No Nutritional Risk Poor oral hygiene: No service: Yes Current occupational status: retired Current occupational exposures/hazards: No Meds Allergies Allergy/AdvReac Type Severity Reaction Status Date / Time No Known Allergies Allergy Verified 12/26/20 16:31 [No Known Allergies*] Active Medications: Current Medications Generic Name Dose Route Start Last Admin Trade Name Vick PRN Reason Stop Dose Admin Lactated Ringer's 1,000 mls @ 100 mls/hr 02/10/21 23:16 02/10/21 23:25 Lr IVCONT 100 mls/hr .Q10H ALEJANDRO Administration Piperacillin Sod/Tazobactam 50 mls @ 100 mls/hr 02/10/21 23:30 Sod 3.375 gm/ Sodium Chloride IV Q6H ALEJANDRO Sodium Chloride 2,382 mls @ 2,382 mls/hr 02/10/21 23:30 Ns 30 ml/kg infuse over 1 hr (2382 ml) 02/11/21 00:29 IV .Q1H ONE Potassium Chloride 40 meq 02/10/21 23:45 Potassium Chloride Packet 20 Meq Packet PO 02/11/21 03:46 Q4H [facility] Home Medications Medication Instructions Recorded Confirmed Last Taken Type amiodarone 100 mg tablet 100 mg PO DAILY 06/27/20 02/10/21 02/10/21 20:00 History aspirin 81 mg tablet 81 mg PO DAILY 06/27/20 02/10/21 08/09/20 History brimonidine 0.025 % eye drops 1 drp OPHTHALMIC (EYE) BID 06/27/20 02/10/21 02/10/21 22:00 History metoprolol succinate 50 mg 50 mg PO DAILY 06/27/20 02/10/21 Unknown History tablet,extended release 24 hr timolol 0.25 % eye drops 1 drp OPHTHALMIC (EYE) DAILY 06/27/20 02/10/21 02/10/21 22:00 History ascorbic acid (vitamin C) 1,500 mg 1,000 tab PO .QD tab 07/19/20 02/10/21 Unknown History tablet omeprazole 20 mg capsule,delayed 40 mg PO BEDTIME cap 11/07/20 02/10/21 Unknown History release ferrous sulfate 325 mg (65 mg 325 mg PO DAILY 12/26/20 02/10/21 Unknown History iron) tablet folic acid 400 mcg tablet 0.4 mg PO DAILY 12/26/20 02/10/21 Unknown History latanoprost 1 drp ONCE 12/29/20 02/10/21 02/09/21 History moxifloxacin 0.5 % eye drops drp OPHTHALMIC-RIGHT 02/10/21 02/10/21 22:00 History pilocarpine HCl 2 % eye drops 1 drp OPHTHALMIC (EYE) QID 02/10/21 02/10/21 02/10/21 22:00 History prednisolone acetate 1 % eye 1 drp OPHTHALMIC (EYE) 02/10/21 02/10/21 22:00 History drops,suspension Physical Exam Vital Signs and Narrative: Vital Signs: Last Vital Signs Temp 101.2 F H 02/10/21 23:43 Pulse 76 02/10/21 23:26 Resp 16 02/10/21 23:26 BP 90/45 L 02/10/21 23:26 Pulse Ox 96 02/10/21 23:26 Body Mass Index 26.6 Const: General: cooperative and no acute distress Orientation/consciousness: patient oriented x3 HENMT: Other: 2 lacerations on the forehead with minimal bleeding Eyes: General: appearance normal, both eyes and all related structures Resp: Effort & Inspection: normal respiratory effort and able to speak in complete sentences Auscultation: clear to auscultation bilaterally Cardio: Rate: regular rate Rhythm: regular rhythm GI: Palpation (GI): Soft to palpation Auscultation: normal bowel sounds Skin: General skin exam: no rashes or lesions noted Neuro: Other: No neurological deficits General: patient oriented x3 Cognition (Neuro): normal cognition Extrem: General: Yes normal to inspection and Yes no pedal edema Results Labs CBC and Chem 7: 02/11/21 04:58 02/10/21 18:55 Labs: Laboratory Results - last 24 hr 02/10/21 02/10/21 02/10/21 18:55 18:55 18:55 MCV 98.3 H MCH 36.0 H MCHC 36.6 H RDW 14.6 Plt Count 137 L MPV 10.3 Immature Gran % (Auto) Cancelled Neut % (Auto) Cancelled Lymph % (Auto) Cancelled [place] % (Auto) Cancelled Eos % (Auto) Cancelled Baso % (Auto) Cancelled Lymph # (Auto) Cancelled [place] # (Auto) Cancelled Eos # (Auto) Cancelled Baso # (Auto) Cancelled Abs Immat Gran (auto) Cancelled Absolute Neuts (auto) Cancelled Absolute Nucleated RBC 0.000 Nucleated RBC % (auto) 0.0 Neutrophils % (Manual) 53 Band Neutrophils % 29 H Lymphocytes % (Manual) 12 L Monocytes % (Manual) 4 Metamyelocytes % 2 Abs Neuts (Manual) 6.7 Lymphocytes # (Manual) 1.0 Monocytes # (Manual) 0.3 Metamyelocytes # 0.2 Platelet Estimate SLIGHTLY DECREASED Plt Morphology Comment NORMAL RBC Morphology NOTED Polychromasia 2+ (3-5) Macrocytosis 1+ (5-14) PT 12.2 INR 1.1 APTT 29.1 Anion Gap Estim Creat Clear Calc Estimated GFR Random Glucose Calcium Total Bilirubin AST ALT Alkaline Phosphatase Total Creatine Kinase 2837 H Troponin I High Sens Total Protein Albumin Urine Color Urine Appearance Urine pH Ur Specific [place] Urine Protein Urine Glucose (UA) Urine Ketones Urine Blood Urine Nitrite Ur Leukocyte Esterase Urine RBC Urine WBC Ur Squamous Epith Cells Urine Bacteria Urine Mucus COVID-19 (ISMAEL) COVID-[employer] 02/10/21 02/10/21 02/10/21 18:55 18:55 18:55 MCV MCH MCHC RDW Plt Count MPV Immature Gran % (Auto) Neut % (Auto) Lymph % (Auto) [place] % (Auto) Eos % (Auto) Baso % (Auto) Lymph # (Auto) [place] # (Auto) Eos # (Auto) Baso # (Auto) Abs Immat Gran (auto) Absolute Neuts (auto) Absolute Nucleated RBC Nucleated RBC % (auto) Neutrophils % (Manual) Band Neutrophils % Lymphocytes % (Manual) Monocytes % (Manual) Metamyelocytes % Abs Neuts (Manual) Lymphocytes # (Manual) Monocytes # (Manual) Metamyelocytes # Platelet Estimate Plt Morphology Comment RBC Morphology Polychromasia Macrocytosis PT INR APTT Anion Gap 15 Estim Creat Clear Calc 36.7 Estimated GFR 47 Random Glucose 105 Calcium 8.3 L Total Bilirubin 1.2 H AST 86 H ALT 41 H Alkaline Phosphatase 79 D Total Creatine Kinase Troponin I High Sens 6570.1 H* Total Protein 5.3 L Albumin 3.4 L Urine Color YELLOW Urine Appearance HAZY Urine pH 6.0 Ur Specific [place] 1.020 Urine Protein 1+ H Urine Glucose (UA) NEG Urine Ketones 5 Urine Blood 3+ H Urine Nitrite NEG Ur Leukocyte Esterase NEG Urine RBC 10-14 H Urine WBC 1-4 Ur Squamous Epith Cells TRACE Urine Bacteria TRACE Urine Mucus TRACE COVID-19 (ISMAEL) COVID-19 [place] [facility] 911 Com 02/10/21 02/10/21 21:14 22:37 MCV MCH MCHC RDW Plt Count MPV Immature Gran % (Auto) Neut % (Auto) Lymph % (Auto) [place] % (Auto) Eos % (Auto) Baso % (Auto) Lymph # (Auto) [place] # (Auto) Eos # (Auto) Baso # (Auto) Abs Immat Gran (auto) Absolute Neuts (auto) Absolute Nucleated RBC Nucleated RBC % (auto) Neutrophils % (Manual) Band Neutrophils % Lymphocytes % (Manual) Monocytes % (Manual) Metamyelocytes % Abs Neuts (Manual) Lymphocytes # (Manual) Monocytes # (Manual) Metamyelocytes # Platelet Estimate Plt Morphology Comment RBC Morphology Polychromasia Macrocytosis PT INR APTT Anion Gap Estim Creat Clear Calc Estimated GFR Random Glucose Calcium Total Bilirubin AST ALT Alkaline Phosphatase Total Creatine Kinase Troponin I High Sens 6604.9 H* Total Protein Albumin Urine Color Urine Appearance Urine pH Ur Specific [place] Urine Protein Urine Glucose (UA) Urine Ketones Urine Blood Urine Nitrite Ur Leukocyte Esterase Urine RBC Urine WBC Ur Squamous Epith Cells Urine Bacteria Urine Mucus COVID-19 (ISMAEL) Negative COVID-19 Clin Com See Note ECG Interpretation: Accelerated junctional rhythm, nonspecific ST and T-wave abnormality, QT of 503, Imaging Radiologist's Impressions: Impressions Knee X-Ray 02/10/21 18:32 IMPRESSION: Total right knee arthroplasty without evidence of complication. Pelvis CT 02/10/21 18:32 IMPRESSION: 1. No acute fracture or dislocation. 2. [id number] bilateral hip osteoarthritis. Cervical Spine CT 02/10/21 18:34 IMPRESSION: HEAD: No acute intracranial hemorrhage or mass effect. CERVICAL SPINE: No acute fracture. Grade 1 anterolisthesis of C3 on C4. Multilevel degenerative disease and bilateral facet arthropathy with mild multilevel bilateral facet arthropathy. Chest X-Ray 02/10/21 18:34 IMPRESSION: No acute cardiopulmonary findings. Resolution of previously seen bilateral airspace opacities. Head CT 02/10/21 18:34 IMPRESSION: HEAD: No acute intracranial hemorrhage or mass effect. CERVICAL SPINE: No acute fracture. Grade 1 anterolisthesis of C3 on C4. Multilevel degenerative disease and bilateral facet arthropathy with mild multilevel bilateral facet arthropathy. Assessment and Plan (1) Syncope: Status: Acute (2) Elevated troponin: Status: Acute (3) DELMA (acute kidney injury): Status: Acute (4) Rhabdomyolysis: Status: Acute (5) Sepsis: Status: Acute (6) Macrocytic anemia: Status: Acute This is an 85-year-old male with past medical history as above who presents to the hospital after fall and syncope. While in the ED patient developed fever, hypotension and is now admitted for sepsis as well as evaluation of syncope # syncope - unclear etiology - patient reports that he has not been drinking and eating well lately and therefore orthostatic hypotension may be a cause as well as head trauma as he reports that he slipped fell hit his head and then syncopized - will admit to telemetry - orthostatic vitals # sepsis - unclear etiology/source - UA negative for infection, chest x-ray negative for infection, no soft tissue infection - was febrile in the ED, hypotensive - no leukocytosis, normal lactic acid - started on broad-spectrum IV antibiotics - will send cultures # elevated troponin - most likely secondary to rhabdo and not necessarily cardiac in origin - denies any chest pain - EKG significant for nonspecific ST T wave abnormality - will trend troponin - cardiology was consulted in the ED and recommended against starting heparin # macrocytic anemia - no acute bleed - occult stool for blood is negative - at this time will follow CBC - will obtain B12, folic acid as well as ferritin - transfusion threshold hemoglobin less than 7 # rhabdomyolysis - secondary to fall - has mild DELMA - start IV fluid - follow CPK # EDLMA - secondary to dehydration - IV fluids - follow BMP # history of AFib - not on any anticoagulation - continue amiodarone and metoprolol DVT prophylaxis: SCDs in the setting of acute anemia Quality Stroke Does the patient have a stroke diagnosis?: No VTE Prior VTE?: No VTE Risk Level:: Medical - moderate - high VTE Device Contraindication: N/A - Device Ordered VTE Drug Contraindication: Treatment Not Indicated
[2021-02-11] VITALS (13 sets, daily range): BP systolic 103–145; BP diastolic 51–70; PULSE 63–82; RESP 16–20; TEMP 36.3–37.4; O2SAT 95–99; BMI 27.2
[2021-02-11 00:03] LABS: OBS Int Ctl Valid YES; OBS1 NEGATIVE (NEGATIVE)
[2021-02-11 00:13] LABS: Lactic Acid 1.4 mmol/L (0.5-2.0)
--- NOTE | 2021-02-11 00:19 | PC.NURSE ---
Second IV established. Lactic and BCX x 2 obtained and sent. Septic fluids infusing per AUG. This RN contacting pharm regarding unverified ABX and Tylenol. Per pharmacy, they are working on it.
--- NOTE | 2021-02-11 00:28 | PC.NURSE ---
ABX remain unverified for 1 hour now. This RN has already contacted pharmacy.
--- NOTE | 2021-02-11 00:28 | PC.NURSE ---
Phleb at bedside for labs.
[2021-02-11 00:35] LABS: Ferritin 409 ng/mL (20-250)
[2021-02-11] MEDS: Acetaminophen 325 MG TABLET 650 MG PO (00:42)
[2021-02-11] MEDS: Piperacillin Sodium/Tazobactam 3.375 GM in 0.9 % Sodium Chloride 50 ML IV ×2 (01:05→05:55)
--- NOTE | 2021-02-11 01:15 | PC.NURSE ---
This RN calling [facility]. [facility] unable to take report at this time and to call back.
[2021-02-11] MEDS: 0.9 % Sodium Chloride Flush 3 ML SYRINGE IVFLUSH ×4 (01:38→19:48)
[2021-02-11] MEDS: Omeprazole 40 MG CAPSULE.DR PO ×2 (02:43→19:47)
[2021-02-11 06:15] LABS: Hemoglobin 7.2 g/dl (14.0-18.0); Mean Corpuscular HGB Conc 36.9 g/dl (31.0-36.0); Mean Corpuscular Hemoglobin 36.4 pg (27.0-33.0); Mean Corpuscular Volume 98.5 fL (80-98); Mean Platelet Volume 10.4 fL (9.4-12.4); Platelet Count 113 X10*3/uL (160-400); Red Blood Count 1.98 X10*6/uL (4.60-5.80); Red Cell Distribution Width 14.6 % (11.0-16.0); White Blood Count 6.6 X10*3/uL (4.8-10.8)
[2021-02-11 06:23] LABS: Hematocrit 19.5 % (42-52)
[2021-02-11 06:27] LABS: Anion Gap 9 (12-20); Blood Urea Nitrogen 17 mg/dL (9-16); Carbon Dioxide 14 mmol/L (22-29); Chloride 120 mmol/L (96-108); Creatinine Clr Calc Pharmacy 53.8; Estimated Glomerular Filt Rate > 60; Glucose Random 115 mg/dL (60-115); Potassium 2.3 mmol/L (3.3-5.1); Sodium 141 mmol/L (135-145)
[2021-02-11 07:10] LABS: Band Neutrophils Percent 10 % (3-5); Lymphocytes Absolute Manual 0.4 X10*3/uL (0.6-4.8); Lymphocytes Percent Manual 6 % (20-40); Neutrophils Absolute Manual 6.2 X10*3/uL (2.2-7.9); Neutrophils Percent Manual 84 % (45-73)
[2021-02-11 07:12] LABS: Acanthocytes 1+ (0-2) /OIF; Macrocytosis 1+ (5-14) /OIF; Polychromasia 1+ (0-2) /OIF; RBC Morphology NOTED
[2021-02-11 07:13] LABS: Platelet Estimate DECREASED (NORMAL); Platelet Morphology Comment NORMAL
[2021-02-11 07:16] LABS: Magnesium 1.4 mg/dL (1.6-2.6)
[2021-02-11] MEDS: Potassium Chloride Packet 20 MEQ PACKET 40 MEQ PO ×2 (08:08→12:36)
[2021-02-11] MEDS: Amiodarone HCL 200 MG TABLET 100 MG PO (08:09)
[2021-02-11] MEDS: Folic Acid 1 MG TABLET PO (08:09)
[2021-02-11] MEDS: Metoprolol Succinate ER 50 MG TAB.ER.24H PO (08:09)
[2021-02-11] MEDS: Potassium Chloride/H20 10 MEQ/100 ML PIGGYBACK 100 MEQ IV ×4 (08:37→16:06)
[2021-02-11] MEDS: Lactated Ringers 1,000 ML 100 ML IVCONT (08:37)
[2021-02-11] MEDS: Magnesium Sulfate/H2O 2 GM/50 ML PIGGYBACK IV (08:37)
--- NOTE | 2021-02-11 08:41 | MHC.CM.PN ---
CM met with Patient at bedside and conducted Initial CM Assessment with him. CM reviewd IMM and provided Patient the original and a copy has been placed on the chart. Patient lives alone in an apartment and he is hesitantly agreeable to a new referral to [facility]. Patient's goal is to return home/no services and CM has initiated and will follow for dc planning. Patient states that his Daughter/Sveta is his HCP and his PCP is Dr. Cortez Schroeder.
--- NOTE | 2021-02-11 10:49 | HO.PM.IMPN ---
Subjective Subjective Date of Service: 02/11/21 <SHAWNEE Rubin - Last Filed: 02/11/21 11:43> 02/11/21 <Marce Swift MD - Last Filed: 02/11/21 16:41> Interval History: seen and examined this morning observed sitting up in bed in no acute distress has no specific complaints. denies any chest pain, palpitations <SHAWNEE Rubin - Last Filed: 02/11/21 11:43> Review of Systems Review of Systems: Yes all other systems are reviewed and are negative <SHAWNEE Rubin - Last Filed: 02/11/21 11:43> Constitutional Constitutional: Denies chills and Denies fever(s) <SHAWNEE Rubin - Last Filed: 02/11/21 11:43> Cardiovascular Cardiovascular: Denies chest pain <SHAWNEE Rubin - Last Filed: 02/11/21 11:43> Respiratory Respiratory: Denies cough <SHAWNEE Rubin - Last Filed: 02/11/21 11:43> Gastrointestinal Gastrointestinal: Denies abdominal pain <SHAWNEE Rubin - Last Filed: 02/11/21 11:43> Physical Exam Vital Signs: Vital Signs: Last Vital Signs Temp 98.5 F 02/11/21 07:11 Pulse 63 02/11/21 08:09 Resp 19 02/11/21 07:11 BP 115/61 02/11/21 08:09 Pulse Ox 95 02/11/21 07:11 Body Mass Index 27.2 <SHAWNEE Rubin - Last Filed: 02/11/21 11:43> Const: Nutritional Appearance: well nourished <SHAWNEE Rubin - Last Filed: 02/11/21 11:43> Orientation/consciousness: patient oriented x3 <SHAWNEE Rubin - Last Filed: 02/11/21 11:43> HENMT: Head: Yes normocephalic and Yes atraumatic <SHAWNEE Rubin - Last Filed: 02/11/21 11:43> Eyes: Other: Right eye covered with hard eye patch <SHAWNEE Rubin - Last Filed: 02/11/21 11:43> Sclerae: sclerae normal <SHAWNEE Rubin Last Filed: 02/11/21 11:43> Chest: Chest palpation & inspection: normal inspection of the chest <SHAWNEE Rubin Last Filed: 02/11/21 11:43> Resp: Effort & Inspection: normal respiratory effort and no respiratory distress <SHAWNEE Rubin - Last Filed: 02/11/21 11:43> Cardio: Rate: regular rate <SHAWNEE Rubin - Last Filed: 02/11/21 11:43> Rhythm: regular rhythm <SHAWNEE Rubin - Last Filed: 02/11/21 11:43> Heart sounds: Murmur heart sound present systolic <SHAWNEE Rubin - Last Filed: 02/11/21 11:43> GI: Palpation (GI): Soft to palpation and nontender <SHAWNEE Rubin - Last Filed: 02/11/21 11:43> Skin: Other: abrasions b/l shins, left side of face <SHAWNEE Rubin Last Filed: 02/11/21 11:43> Neuro: General: patient oriented x3 <SHAWNEE Rubin Last Filed: 02/11/21 11:43> Cranial nerves: Yes CN's II-XII intact bilaterally and Yes Bilaterally intact EOM present <SHAWNEE Rubin Last Filed: 02/11/21 11:43> Objective Data Current Medications Generic Name Dose Route Start Last Admin Trade Name Meirq PRN Reason Stop Dose Admin Acetaminophen 650 mg 02/10/21 23:50 02/11/21 00:42 Acetaminophen 325 Mg Tablet PO 650 mg Q6H PRN Administration Pain, Mild (Pain Scale 1-3) Amiodarone HCl 100 mg 02/11/21 09:00 02/11/21 08:09 Amiodarone Hcl 200 Mg Tablet PO 100 mg DAILY ALEJANDRO Administration Docusate Sodium 100 mg 02/10/21 23:50 Docusate Sodium 100 Mg Capsule PO DAILY PRN Constipation Folic Acid 1 mg 02/11/21 09:00 02/11/21 08:09 Folic Acid 1 Mg Tablet PO 1 mg DAILY ALEJANDRO Administration Lactated Ringer's 1,000 mls @ 100 mls/hr 02/10/21 23:16 02/11/21 08:38 Lr IVCONT 0 mls/hr .Q10H ALEJANDRO Infusion Piperacillin Sod/Tazobactam 50 mls @ 100 mls/hr 02/11/21 01:00 02/11/21 06:35 Sod 3.375 gm/ Sodium Chloride IV Infused Q6H ALEJANDRO Infusion Potassium Chloride 10 meq in 100 mls @ 100 mls/hr 02/11/21 08:00 02/11/21 08:37 IV 02/11/21 11:59 100 mls/hr Q1H ALEJANDRO Administration Latanoprost 1 drop 02/11/21 01:45 Latanoprost 0.005 % Ophth Rosa Maria 2.5 Ml Drops EYE-BOTH ONCE ALEJANDRO Metoprolol Succinate 50 mg 02/11/21 09:00 02/11/21 08:09 Metoprolol Succinate Er 50 Mg Tab.Er.24h PO 50 mg DAILY ALEJANDRO Administration Protocol Non-Formulary Medication 1 drop 02/11/21 09:00 Brimonidine EYE-BOTH BID ALEJANDRO Non-Formulary Medication 1 drop 02/11/21 09:00 [place]ine Hcl EYE-BOTH QID ALEJANDRO Non-Formulary Medication 1 drop 02/11/21 09:00 Timolol EYE-BOTH DAILY ALEJANDRO Omeprazole 40 mg 02/10/21 23:50 02/11/21 02:43 Omeprazole 40 Mg Capsule.Dr PO 40 mg BEDTIME ALEJANDRO Administration Ondansetron HCl 4 mg 02/10/21 23:50 Ondansetron Hcl 4 Mg/2 Ml Vial IVPUSH Q8H PRN Nausea and Vomiting Sodium Chloride 3 ml 02/11/21 00:00 02/11/21 08:09 0.9 % Sodium Chloride Flush 3 Ml Syringe IVFLUSH 3 ml QSHIFT ALEJANDRO Administration <SHAWNEE Rubin - Last Filed: 02/11/21 11:43> Labs CBC & Chem 7: : 02/11/21 04:58 02/11/21 15:54 <SHAWNEE Rubin - Last Filed: 02/11/21 11:43> Labs: Laboratory Results - last 24 hr 02/10/21 02/10/21 02/10/21 18:55 18:55 18:55 MCV 98.3 H MCH 36.0 H MCHC 36.6 H RDW 14.6 Plt Count 137 L MPV 10.3 Immature Gran % (Auto) Cancelled Neut % (Auto) Cancelled Lymph % (Auto) Cancelled [place] % (Auto) Cancelled Eos % (Auto) Cancelled Baso % (Auto) Cancelled Lymph # (Auto) Cancelled [place] # (Auto) Cancelled Eos # (Auto) Cancelled Baso # (Auto) Cancelled Abs Immat Gran (auto) Cancelled Absolute Neuts (auto) Cancelled Absolute Nucleated RBC 0.000 Nucleated RBC % (auto) 0.0 Neutrophils % (Manual) 53 Band Neutrophils % 29 H Lymphocytes % (Manual) 12 L Monocytes % (Manual) 4 Metamyelocytes % 2 Abs Neuts (Manual) 6.7 Lymphocytes # (Manual) 1.0 Monocytes # (Manual) 0.3 Metamyelocytes # 0.2 Platelet Estimate SLIGHTLY DECREASED Plt Morphology Comment NORMAL RBC Morphology NOTED Polychromasia 2+ (3-5) Macrocytosis 1+ (5-14) Acanthocytes (Spur) PT 12.2 INR 1.1 APTT 29.1 Anion Gap Estim Creat Clear Calc Estimated GFR Random Glucose Lactic Acid Calcium Magnesium Ferritin Total Bilirubin AST ALT Alkaline Phosphatase Total Creatine Kinase 2837 H Troponin I High Sens Total Protein Albumin Urine Color Urine Appearance Urine pH Ur Specific [place] Urine Protein Urine Glucose (UA) Urine Ketones Urine Blood Urine Nitrite Ur Leukocyte Esterase Urine RBC Urine WBC Ur Squamous Epith Cells Urine Bacteria Urine Mucus Stool Occult Blood COVID-19 ([facility]) COVID-19 Clin Com Blood Type Antibody Screen Crossmatch 02/10/21 02/10/21 02/10/21 18:55 18:55 18:55 MCV MCH MCHC RDW Plt Count MPV Immature Gran % (Auto) Neut % (Auto) Lymph % (Auto) [place] % (Auto) Eos % (Auto) Baso % (Auto) Lymph # (Auto) [place] # (Auto) Eos # (Auto) Baso # (Auto) Abs Immat Gran (auto) Absolute Neuts (auto) Absolute Nucleated RBC Nucleated RBC % (auto) Neutrophils % (Manual) Band Neutrophils % Lymphocytes % (Manual) Monocytes % (Manual) Metamyelocytes % Abs Neuts (Manual) Lymphocytes # (Manual) Monocytes # (Manual) Metamyelocytes # Platelet Estimate Plt Morphology Comment RBC Morphology Polychromasia Macrocytosis Acanthocytes (Spur) PT INR APTT Anion Gap 15 Estim Creat Clear Calc 36.7 Estimated GFR 47 Random Glucose 105 Lactic Acid Calcium 8.3 L Magnesium Ferritin 409 H Total Bilirubin 1.2 H AST 86 H ALT 41 H Alkaline Phosphatase 79 D Total Creatine Kinase Troponin I High Sens 6570.1 H* Total Protein 5.3 L Albumin 3.4 L Urine Color YELLOW Urine Appearance HAZY Urine pH 6.0 Ur Specific [place] 1.020 Urine Protein 1+ H Urine Glucose (UA) NEG Urine Ketones 5 Urine Blood 3+ H Urine Nitrite NEG Ur Leukocyte Esterase NEG Urine RBC 10-14 H Urine WBC 1-4 Ur Squamous Epith Cells TRACE Urine Bacteria TRACE Urine Mucus TRACE Stool Occult Blood COVID-19 ([facility]MA[facility]) COVID-19 [employer] Com Blood Type Antibody Screen Crossmatch 02/10/21 02/10/21 02/10/21 21:14 22:37 23:32 MCV MCH MCHC RDW Plt Count MPV Immature Gran % (Auto) Neut % (Auto) Lymph % (Auto) [place] % (Auto) Eos % (Auto) Baso % (Auto) Lymph # (Auto) [place] # (Auto) Eos # (Auto) Baso # (Auto) Abs Immat Gran (auto) Absolute Neuts (auto) Absolute Nucleated RBC Nucleated RBC % (auto) Neutrophils % (Manual) Band Neutrophils % Lymphocytes % (Manual) Monocytes % (Manual) Metamyelocytes % Abs Neuts (Manual) Lymphocytes # (Manual) Monocytes # (Manual) Metamyelocytes # Platelet Estimate Plt Morphology Comment RBC Morphology Polychromasia Macrocytosis Acanthocytes (Spur) PT INR APTT Anion Gap Estim Creat Clear Calc Estimated GFR Random Glucose Lactic Acid 1.4 Calcium Magnesium Ferritin Total Bilirubin AST ALT Alkaline Phosphatase Total Creatine Kinase Troponin I High Sens 6604.9 H* Total Protein Albumin Urine Color Urine Appearance Urine pH Ur Specific [place] Urine Protein Urine Glucose (UA) Urine Ketones Urine Blood Urine Nitrite Ur Leukocyte Esterase Urine RBC Urine WBC Ur Squamous Epith Cells Urine Bacteria Urine Mucus Stool Occult Blood COVID-19 ([facility]MA[facility]) Negative COVID-19 [employer] Com See Note Blood Type Antibody Screen Crossmatch 02/10/21 02/11/21 02/11/21 23:47 04:58 04:58 MCV 98.5 H MCH 36.4 H MCHC 36.9 H RDW 14.6 Plt Count 113 L MPV 10.4 Immature Gran % (Auto) Cancelled Neut % (Auto) Cancelled Lymph % (Auto) Cancelled [place] % (Auto) Cancelled Eos % (Auto) Cancelled Baso % (Auto) Cancelled Lymph # (Auto) Cancelled [place] # (Auto) Cancelled Eos # (Auto) Cancelled Baso # (Auto) Cancelled Abs Immat Gran (auto) Cancelled Absolute Neuts (auto) Cancelled Absolute Nucleated RBC 0.000 Nucleated RBC % (auto) 0.0 Neutrophils % (Manual) 84 H Band Neutrophils % 10 H Lymphocytes % (Manual) 6 L Monocytes % (Manual) Metamyelocytes % Abs Neuts (Manual) 6.2 Lymphocytes # (Manual) 0.4 L Monocytes # (Manual) Metamyelocytes # Platelet Estimate DECREASED Plt Morphology Comment NORMAL RBC Morphology NOTED Polychromasia 1+ (0-2) Macrocytosis 1+ (5-14) Acanthocytes (Spur) 1+ (0-2) PT INR APTT Anion Gap 9 L Estim Creat Clear Calc 53.8 Estimated GFR > 60 Random Glucose 115 Lactic Acid Calcium 7.0 L D Magnesium 1.4 L* Ferritin Total Bilirubin AST ALT Alkaline Phosphatase Total Creatine Kinase Troponin I High Sens Total Protein Albumin Urine Color Urine Appearance Urine pH Ur Specific [place] Urine Protein Urine Glucose (UA) Urine Ketones Urine Blood Urine Nitrite Ur Leukocyte Esterase Urine RBC Urine WBC Ur Squamous Epith Cells Urine Bacteria Urine Mucus Stool Occult Blood NEGATIVE COVID-19 ([facility]) COVID-19 Clin Com Blood Type Antibody Screen Crossmatch 02/11/21 02/11/21 04:58 08:12 MCV MCH MCHC RDW Plt Count MPV Immature Gran % (Auto) Neut % (Auto) Lymph % (Auto) [place] % (Auto) Eos % (Auto) Baso % (Auto) Lymph # (Auto) [place] # (Auto) Eos # (Auto) Baso # (Auto) Abs Immat Gran (auto) Absolute Neuts (auto) Absolute Nucleated RBC Nucleated RBC % (auto) Neutrophils % (Manual) Band Neutrophils % Lymphocytes % (Manual) Monocytes % (Manual) Metamyelocytes % Abs Neuts (Manual) Lymphocytes # (Manual) Monocytes # (Manual) Metamyelocytes # Platelet Estimate Plt Morphology Comment RBC Morphology Polychromasia Macrocytosis Acanthocytes (Spur) PT INR APTT Anion Gap Estim Creat Clear Calc Estimated GFR Random Glucose Lactic Acid Calcium Magnesium Ferritin Total Bilirubin AST ALT Alkaline Phosphatase Total Creatine Kinase Troponin I High Sens 4330.8 H* Total Protein Albumin Urine Color Urine Appearance Urine pH Ur Specific [place] Urine Protein Urine Glucose (UA) Urine Ketones Urine Blood Urine Nitrite Ur Leukocyte Esterase Urine RBC Urine WBC Ur Squamous Epith Cells Urine Bacteria Urine Mucus Stool Occult Blood COVID-19 ([facility]) COVID-19 Clin Com Blood Type O Positive Antibody Screen NEGATIVE Crossmatch See Detail <SHAWNEE Rubin - Last Filed: 02/11/21 11:43> Assessment and Plan (1) Syncope: Status: Acute <SHAWNEE Rubin - Last Filed: 02/11/21 11:43> Assessment and Plan: This is an 85-year-old male with past medical history of afib not on AC, CML, moderat , previous KS, HTN, HLD, BPH, MARIBEL, recent eye surgery for glaucoma who presents to the hospital after fall and syncope.? While in the ED patient developed fever, hypotension and is now admitted for sepsis as well as evaluation of syncope syncope - h/o moderate , will order repeat ECHO - tele monitoring - orthostatic vitals met criteria for sirs on admission with fever of 101.2 and tachypnea, however no source of infection has been identified Possibly secondary to gastroenteritis given recent bout of nausea and vomiting - UA negative for infection, chest x-ray negative for infection, no soft tissue infection - no leukocytosis, normal lactic acid - was started on broad-spectrum IV antibiotics, will DC antibiotics for now - blood cultures pending elevated troponin h/o cad may be secondary to rhabdo vs stress induced. denies chest pain trop trending down, given significant anemia and recent eye surgery, will hold off on AC at this time - cardiology consult - echo elevated liver enzymes no abdominal pain -follow lfts macrocytic anemia h/o CML H/H trending down, will transfuse 1u RBCs occult stool for blood is negative -B12, folic acid pending -follow CBC hypokalemia/hypomagnesemia -aggressive replacement of electrolytes -follow BMP -tele monitoring -repeat BMP this afternoon metabolic acidosis bicarb trending up slightly from 13 to 14 recently started on acetazolamide for glaucoma -hold acetazolamide (not listed on med rec) -follow bmp rhabdomyolysis secondary to fall DELMA resolved. - start IV fluid - follow CPK thrombocytopenia -follow cbc DELMA resolved with IVF history of AFib -not on any anticoagulation, possibly due to chronic anemia. takes baby asa -continue amiodarone and metoprolol glaucoma with recent eye surgery -continue eye drops DVT prophylaxis:? SCDs in the setting of acute anemia attending: dr. swift <SHAWNEE Rubin - Last Filed: 02/11/21 11:43> Quality Stroke Does the patient have a stroke diagnosis?: No <SHAWNEE Rubin - Last Filed: 02/11/21 11:43> VTE Prior VTE?: No <SHAWNEE Rubin - Last Filed: 02/11/21 11:43> VTE Risk Level:: Medical - moderate - high <SHAWNEE Rubin - Last Filed: 02/11/21 11:43> VTE Device Contraindication: N/A - Device Ordered <SHAWNEE Rubin - Last Filed: 02/11/21 11:43> VTE Drug Contraindication: Treatment Not Indicated <SHAWNEE Rubin - Last Filed: 02/11/21 11:43>
--- NOTE | 2021-02-11 11:53 | P.CONCA_ITS ---
History of Present Illness History of Present Illness Date of Service: 02/11/21 Consult reason: troponin elevation Chief complaint: Rhabdo, fall, syncope, elevated trop Narrative: This is a cardiology consultation regarding elevated troponins. He has a history of aortic stenosis, atrial fibrillation, coronary disease and multiple other medical comorbidities. It seems that he went to the bathroom and some of fell down. He is not able to recall the exact sequence of events that led to the fall and cannot remember. Subsequently, he got up and felt dizzy leading to another fall. Then it seems he was on the floor for a while. Eventually brought to the ER and admitted. Not clear how long he was on the floor for. He denies any chest pain whatsoever. No shortness of breath or any other complaints. He used to see Dr. Elisa osuna retired. Otherwise, recent eye surgery at [facility] 2 days ago on the right eye and he still has a patch on it. Minimal vision. Still lives independently. Upon arrival he did have a temperature of 101.2 degrees F but no clear septic source identified. Review of Systems Review of Systems: Yes all other systems are reviewed and are negative Cardiovascular: Cardiovascular: Reports as per HPI, Reports no additional cardiovascular complaints, Denies acrocyanosis, Denies cool extremities, Denies painful fingertips, Denies chest pain, Denies chest pain at rest, Denies diaph oresis, Denies syncope, Denies irregular heart rhythm, Denies claudication, Denies leg edema, Denies lightheadedness, Denies palpitations and Denies dyspnea Respiratory: Respiratory: Denies dyspnea Neurologic: Denies syncope Endocrine: Endocrine: Denies palpitations [facility] Past Medical History Medical History Aortic stenosis Atrial fibrillation Benign prostatic hyperplasia Coronary artery disease GERD (gastroesophageal reflux disease) Glaucoma History of heart attack Hypercholesterolemia Hypertension Leg pain Moderate aortic stenosis Obstructive sleep apnea Sleep apnea Status post placement of implantable loop recorder Vitamin B12 deficiency Family History Family History Father No problems noted. Mother No problems noted. Brother Leukemia AML (acute myeloblastic leukemia) Son In good health Daughter In good health Surgical History Surgical History H/O rectal polypectomy History of cataract surgery History of cholecystectomy History of esophagogastroduodenoscopy (EGD) History of eye surgery History of tonsillectomy Hx of colonoscopy Status post right knee replacement Social History Social History Household Members: None Housing: Apartment Do you presently have visiting nurse or other home services: No Alcohol intake: current Alcohol intake frequency: holidays/special occasions only Patient Tobacco Use Status: Former Tobacco user Tobacco use type: Cigarette Smoked in Last 30 Days: No e-Cigarette/Vaping Use: Never Used Patient Interested in Nicotine Replacement: No Patient Given Instructions on How to Stop Smoking: No Second Hand Smoke Exposure: No Use of substances other than those prescribed or required for medical reasons: No Currently Displaying Signs/Symptoms of Drug Intoxication Withdrawal: No Any prior treatment program specific to substance use: No Have you been hit, kicked, punched, or otherwise hurt by someone within the past year? If so, by whom?: No Do you feel safe in your current relationship?: No Current Relationship Is there a partner from a previous relationship who is making you feel unsafe now?: No Are you made to feel afraid or neglected: No Advance Directives: No Advance Directives Information Provided: Yes Advance Directives on File: Yes Advance Directives Date on File: 02/11/21 Do you have thoughts of harming others: None Do you have a plan to hurt others: No Plan Recently lost weight without trying: No Eating poorly because of decreased appetite: No Nutrition Risks: No Nutritional Risk Poor oral hygiene: No service: Yes Current occupational status: retired Current occupational exposures/hazards: No Meds Allergies Allergy/AdvReac Type Severity Reaction Status Date / Time No Known Allergies Allergy Verified 12/26/20 16:31 [No Known Allergies*] Active Medications: Current Medications Generic Name Dose Route Start Last Admin Trade Name Freq PRN Reason Stop Dose Admin Acetaminophen 650 mg 02/10/21 23:50 02/11/21 00:42 Acetaminophen 325 Mg Tablet PO 650 mg Q6H PRN Administration Pain, Mild (Pain Scale 1-3) Amiodarone HCl 100 mg 02/11/21 09:00 02/11/21 08:09 Amiodarone Hcl 200 Mg Tablet PO 100 mg DAILY ALEJANDRO Administration Docusate Sodium 100 mg 02/10/21 23:50 Docusate Sodium 100 Mg Capsule PO DAILY PRN Constipation Folic Acid 1 mg 02/11/21 09:00 02/11/21 08:09 Folic Acid 1 Mg Tablet PO 1 mg DAILY ALEJANRDO Administration Lactated Ringer's 1,000 mls @ 100 mls/hr 02/10/21 23:16 02/11/21 08:38 Lr IVCONT 0 mls/hr .Q10H ALEJANDRO Infusion Potassium Chloride 10 meq in 100 mls @ 100 mls/hr 02/11/21 08:00 02/11/21 08:37 IV 02/11/21 11:59 100 mls/hr Q1H ALEJANDRO Administration Latanoprost 1 drop 02/11/21 01:45 Latanoprost 0.005 % Ophth Rosa Maria 2.5 Ml Drops EYE-BOTH ONCE ALEJANDRO Metoprolol Succinate 50 mg 02/11/21 09:00 02/11/21 08:09 Metoprolol Succinate Er 50 Mg Tab.Er.24h PO 50 mg DAILY ALEJANDRO Administration Protocol Moxifloxacin HCl 1 drop 02/11/21 13:00 Moxifloxacin Hcl 0.5 % Oph Rosa Maria 3 Ml Drpbtl EYE-RIGHT QID REPLACED BY [facility] Non-Formulary Medication 1 drop 02/11/21 09:00 Brimonidine EYE-BOTH BID REPLACED BY [facility] Non-Formulary Medication 1 drop 02/11/21 09:00 Pilocarpine Hcl EYE-BOTH QID REPLACED BY [facility] Non-Formulary Medication 1 drop 02/11/21 09:00 Timolol EYE-BOTH DAILY REPLACED BY [facility] Omeprazole 40 mg 02/10/21 23:50 02/11/21 02:43 Omeprazole 40 Mg Capsule.Dr PO 40 mg BEDTIME ALEJANDRO Administration Ondansetron HCl 4 mg 02/10/21 23:50 Ondansetron Hcl 4 Mg/2 Ml Vial IVPUSH Q8H PRN Nausea and Vomiting Prednisolone Acetate 1 drop 02/11/21 12:00 Prednisolone Acetate 1 % Oph Susp 5 Ml Drpbtl EYE-BOTH 6XD REPLACED BY [facility] Sodium Chloride 3 ml 02/11/21 00:00 02/11/21 08:09 0.9 % Sodium Chloride Flush 3 Ml Syringe IVFLUSH 3 ml QSHIFT ALEJANDRO Administration Home Medications Medication Instructions Recorded Confirmed Last Taken Type amiodarone 100 mg tablet 100 mg PO DAILY 06/27/20 02/10/21 02/10/21 20:00 History aspirin 81 mg tablet 81 mg PO DAILY 06/27/20 02/10/21 08/09/20 History brimonidine 0.025 % eye drops 1 drp OPHTHALMIC (EYE) BID 06/27/20 02/10/21 02/10/21 22:00 History metoprolol succinate 50 mg 50 mg PO DAILY 06/27/20 02/10/21 Unknown History tablet,extended release 24 hr timolol 0.25 % eye drops 1 drp OPHTHALMIC (EYE) DAILY 06/27/20 02/10/21 02/10/21 22:00 History ascorbic acid (vitamin C) 1,500 mg 1,000 tab PO .QD tab 07/19/20 02/10/21 Unknown History tablet omeprazole 20 mg capsule,delayed 40 mg PO BEDTIME cap 11/07/20 02/10/21 Unknown History release ferrous sulfate 325 mg (65 mg 325 mg PO DAILY 12/26/20 02/10/21 Unknown History iron) tablet folic acid 400 mcg tablet 0.4 mg PO DAILY 12/26/20 02/10/21 Unknown History latanoprost 1 drp ONCE 12/29/20 02/10/21 02/09/21 History moxifloxacin 0.5 % eye drops 1 drp OPHTHALMIC-RIGHT QID 02/10/21 02/11/21 02/10/21 22:00 History pilocarpine HCl 2 % eye drops 1 drp OPHTHALMIC (EYE) QID 02/10/21 02/10/21 02/10/21 22:00 History prednisolone acetate 1 % eye 1 drp OPHTHALMIC (EYE) 6XD 02/10/21 02/11/21 02/10/21 22:00 History drops,suspension Physical Exam Vital Signs: Vital Signs: Last Vital Signs Temp 97.8 F 02/11/21 11:08 Pulse 76 02/11/21 11:08 Resp 18 02/11/21 11:08 BP 116/56 L 02/11/21 11:08 Pulse Ox 99 02/11/21 11:08 Body Mass Index 27.2 Const: General: cooperative and no acute distress HENMT: Other: Unremarkable Neck: Neck: Yes normal visual inspection Chest: Chest palpation & inspection: normal inspection of the chest Resp: Auscultation: clear to auscultation bilaterally, no crackles and no wheezes Cardio: Jugular venous distension: no JVD Palpation: normal PMI Heart sounds: S1 normal heart sound present, S2 normal heart sound present, no gallops, Murmur heart sound present systolic III/ and at the right sternal border and no rubs GI: Palpation (GI): Soft to palpation Back/Spine/Pelvis: Other: unremarkable Skin: General skin exam: no rashes or lesions noted Neuro: Cranial nerves: Yes Other cranial nerve findings present Extrem: General: Yes no clubbing, cyanosis or edema Psych: Mental Status: other Results Labs and Meds Result diagrams: 02/11/21 04:58 02/11/21 04:58 Lab results: Laboratory Results - last 24 hr 02/10/21 02/10/21 02/10/21 18:55 18:55 18:55 WBC 8.2 RBC 2.36 L Hgb 8.5 L D Hct 23.2 L D MCV 98.3 H MCH 36.0 H MCHC 36.6 H RDW 14.6 Plt Count 137 L MPV 10.3 Immature Gran % (Auto) Cancelled Neut % (Auto) Cancelled Lymph % (Auto) Cancelled [place] % (Auto) Cancelled Eos % (Auto) Cancelled Baso % (Auto) Cancelled Lymph # (Auto) Cancelled [place] # (Auto) Cancelled Eos # (Auto) Cancelled Baso # (Auto) Cancelled Abs Immat Gran (auto) Cancelled Absolute Neuts (auto) Cancelled Absolute Nucleated RBC 0.000 Nucleated RBC % (auto) 0.0 Neutrophils % (Manual) 53 Band Neutrophils % 29 H Lymphocytes % (Manual) 12 L Monocytes % (Manual) 4 Metamyelocytes % 2 Abs Neuts (Manual) 6.7 Lymphocytes # (Manual) 1.0 Monocytes # (Manual) 0.3 Metamyelocytes # 0.2 Platelet Estimate SLIGHTLY DECREASED Plt Morphology Comment NORMAL RBC Morphology NOTED Polychromasia 2+ (3-5) Macrocytosis 1+ (5-14) Acanthocytes (Spur) PT 12.2 INR 1.1 APTT 29.1 Sodium Potassium Chloride Carbon Dioxide Anion Gap BUN Creatinine Estim Creat Clear Calc Estimated GFR Random Glucose Lactic Acid Calcium Magnesium Ferritin Total Bilirubin AST ALT Alkaline Phosphatase Total Creatine Kinase 2837 H Troponin I High Sens Total Protein Albumin Urine Color Urine Appearance Urine pH Ur Specific [place] Urine Protein Urine Glucose (UA) Urine Ketones Urine Blood Urine Nitrite Ur Leukocyte Esterase Urine RBC Urine WBC Ur Squamous Epith Cells Urine Bacteria Urine Mucus Stool Occult Blood COVID-19 (ISMAEL) COVID-19 [employer] Com Blood Type Antibody Screen Crossmatch 02/10/21 02/10/21 02/10/21 18:55 18:55 18:55 WBC RBC Hgb Hct MCV MCH MCHC RDW Plt Count MPV Immature Gran % (Auto) Neut % (Auto) Lymph % (Auto) [place] % (Auto) Eos % (Auto) Baso % (Auto) Lymph # (Auto) [place] # (Auto) Eos # (Auto) Baso # (Auto) Abs Immat Gran (auto) Absolute Neuts (auto) Absolute Nucleated RBC Nucleated RBC % (auto) Neutrophils % (Manual) Band Neutrophils % Lymphocytes % (Manual) Monocytes % (Manual) Metamyelocytes % Abs Neuts (Manual) Lymphocytes # (Manual) Monocytes # (Manual) Metamyelocytes # Platelet Estimate Plt Morphology Comment RBC Morphology Polychromasia Macrocytosis Acanthocytes (Spur) PT INR APTT Sodium 143 Potassium 2.7 L D Chloride 118 H Carbon Dioxide 13 L Anion Gap 15 BUN 22 H Creatinine 1.42 H Estim Creat Clear Calc 36.7 Estimated GFR 47 Random Glucose 105 Lactic Acid Calcium 8.3 L Magnesium Ferritin 409 H Total Bilirubin 1.2 H AST 86 H ALT 41 H Alkaline Phosphatase 79 D Total Creatine Kinase Troponin I High Sens 6570.1 H* Total Protein 5.3 L Albumin 3.4 L Urine Color YELLOW Urine Appearance HAZY Urine pH 6.0 Ur Specific [place] 1.020 Urine Protein 1+ H Urine Glucose (UA) NEG Urine Ketones 5 Urine Blood 3+ H Urine Nitrite NEG Ur Leukocyte Esterase NEG Urine RBC 10-14 H Urine WBC 1-4 Ur Squamous Epith Cells TRACE Urine Bacteria TRACE Urine Mucus TRACE Stool Occult Blood COVID-19 (ISMAEL) COVID-19 [employer] Com Blood Type Antibody Screen Crossmatch 02/10/21 02/10/21 02/10/21 21:14 22:37 23:32 WBC RBC Hgb Hct MCV MCH MCHC RDW Plt Count MPV Immature Gran % (Auto) Neut % (Auto) Lymph % (Auto) [place] % (Auto) Eos % (Auto) Baso % (Auto) Lymph # (Auto) [place] # (Auto) Eos # (Auto) Baso # (Auto) Abs Immat Gran (auto) Absolute Neuts (auto) Absolute Nucleated RBC Nucleated RBC % (auto) Neutrophils % (Manual) Band Neutrophils % Lymphocytes % (Manual) Monocytes % (Manual) Metamyelocytes % Abs Neuts (Manual) Lymphocytes # (Manual) Monocytes # (Manual) Metamyelocytes # Platelet Estimate Plt Morphology Comment RBC Morphology Polychromasia Macrocytosis Acanthocytes (Spur) PT INR APTT Sodium Potassium Chloride Carbon Dioxide Anion Gap BUN Creatinine Estim Creat Clear Calc Estimated GFR Random Glucose Lactic Acid 1.4 Calcium Magnesium Ferritin Total Bilirubin AST ALT Alkaline Phosphatase Total Creatine Kinase Troponin I High Sens 6604.9 H* Total Protein Albumin Urine Color Urine Appearance Urine pH Ur Specific [place] Urine Protein Urine Glucose (UA) Urine Ketones Urine Blood Urine Nitrite Ur Leukocyte Esterase Urine RBC Urine WBC Ur Squamous Epith Cells Urine Bacteria Urine Mucus Stool Occult Blood COVID-19 (ISMAEL) Negative COVID-19 Clin Com See Note Blood Type Antibody Screen Crossmatch 02/10/21 02/11/21 02/11/21 23:47 04:58 04:58 WBC 6.6 RBC 1.98 L Hgb 7.2 L Hct 19.5 L* MCV 98.5 H MCH 36.4 H MCHC 36.9 H RDW 14.6 Plt Count 113 L MPV 10.4 Immature Gran % (Auto) Cancelled Neut % (Auto) Cancelled Lymph % (Auto) Cancelled [place] % (Auto) Cancelled Eos % (Auto) Cancelled Baso % (Auto) Cancelled Lymph # (Auto) Cancelled [place] # (Auto) Cancelled Eos # (Auto) Cancelled Baso # (Auto) Cancelled Abs Immat Gran (auto) Cancelled Absolute Neuts (auto) Cancelled Absolute Nucleated RBC 0.000 Nucleated RBC % (auto) 0.0 Neutrophils % (Manual) 84 H Band Neutrophils % 10 H Lymphocytes % (Manual) 6 L Monocytes % (Manual) Metamyelocytes % Abs Neuts (Manual) 6.2 Lymphocytes # (Manual) 0.4 L Monocytes # (Manual) Metamyelocytes # Platelet Estimate DECREASED Plt Morphology Comment NORMAL RBC Morphology NOTED Polychromasia 1+ (0-2) Macrocytosis 1+ (5-14) Acanthocytes (Spur) 1+ (0-2) PT INR APTT Sodium 141 Potassium 2.3 L* Chloride 120 H Carbon Dioxide 14 L Anion Gap 9 L BUN 17 H Creatinine 0.97 Estim Creat Clear Calc 53.8 Estimated GFR > 60 Random Glucose 115 Lactic Acid Calcium 7.0 L D Magnesium 1.4 L* Ferritin Total Bilirubin AST ALT Alkaline Phosphatase Total Creatine Kinase Troponin I High Sens Total Protein Albumin Urine Color Urine Appearance Urine pH Ur Specific [place] Urine Protein Urine Glucose (UA) Urine Ketones Urine Blood Urine Nitrite Ur Leukocyte Esterase Urine RBC Urine WBC Ur Squamous Epith Cells Urine Bacteria Urine Mucus Stool Occult Blood NEGATIVE COVID-19 (ISMAEL) COVID-19 [employer] Com Blood Type Antibody Screen Crossmatch 02/11/21 02/11/21 04:58 08:12 WBC RBC Hgb Hct MCV MCH MCHC RDW Plt Count MPV Immature Gran % (Auto) Neut % (Auto) Lymph % (Auto) [place] % (Auto) Eos % (Auto) Baso % (Auto) Lymph # (Auto) [place] # (Auto) Eos # (Auto) Baso # (Auto) Abs Immat Gran (auto) Absolute Neuts (auto) Absolute Nucleated RBC Nucleated RBC % (auto) Neutrophils % (Manual) Band Neutrophils % Lymphocytes % (Manual) Monocytes % (Manual) Metamyelocytes % Abs Neuts (Manual) Lymphocytes # (Manual) Monocytes # (Manual) Metamyelocytes # Platelet Estimate Plt Morphology Comment RBC Morphology Polychromasia Macrocytosis Acanthocytes (Spur) PT INR APTT Sodium Potassium Chloride Carbon Dioxide Anion Gap BUN Creatinine Estim Creat Clear Calc Estimated GFR Random Glucose Lactic Acid Calcium Magnesium Ferritin Total Bilirubin AST ALT Alkaline Phosphatase Total Creatine Kinase Troponin I High Sens 4330.8 H* Total Protein Albumin Urine Color Urine Appearance Urine pH Ur Specific [place] Urine Protein Urine Glucose (UA) Urine Ketones Urine Blood Urine Nitrite Ur Leukocyte Esterase Urine RBC Urine WBC Ur Squamous Epith Cells Urine Bacteria Urine Mucus Stool Occult Blood COVID-19 (ISMAEL) COVID-19 Clin Com Blood Type O Positive Antibody Screen NEGATIVE Crossmatch See Detail ECG Interpretation: EKGs reviewed. Most recent one shows sinus rhythm at 84/Min and T inversions from V1 to V3 but somewhat subtle; cannot exclude old inferior infarct but could also be nonspecific Q-waves in lead 3; prolonged QTc at 491 milliseconds. EKG prior to that is similar but QTc in that study was 503 milliseconds. Rate was 100/Min. Imaging Radiologist's impression: Impressions Knee X-Ray 02/10/21 18:32 IMPRESSION: Total right knee arthroplasty without evidence of complication. Pelvis CT 02/10/21 18:32 IMPRESSION: 1. No acute fracture or dislocation. 2. [id number] bilateral hip osteoarthritis. Cervical Spine CT 02/10/21 18:34 IMPRESSION: HEAD: No acute intracranial hemorrhage or mass effect. CERVICAL SPINE: No acute fracture. Grade 1 anterolisthesis of C3 on C4. Multilevel degenerative disease and bilateral facet arthropathy with mild multilevel bilateral facet arthropathy. Chest X-Ray 02/10/21 18:34 IMPRESSION: No acute cardiopulmonary findings. Resolution of previously seen bilateral airspace opacities. Head CT 02/10/21 18:34 IMPRESSION: HEAD: No acute intracranial hemorrhage or mass effect. CERVICAL SPINE: No acute fracture. Grade 1 anterolisthesis of C3 on C4. Multilevel degenerative disease and bilateral facet arthropathy with mild multilevel bilateral facet arthropathy. Assessment and Plan (1) Rhabdomyolysis: Status: Acute (2) NSTEMI (non-ST elevated myocardial infarction): Status: Acute (3) Atherosclerotic cardiovascular disease: Status: Acute (4) Non-rheumatic aortic stenosis: Status: Acute But in data reviewed. Hemoglobin 7.2. White cells 6.6. Platelets 113. Potassium 2.3. Creatinine is 0.97. Magnesium 1.4. Troponins are 6570; 6604; 4330. Last echocardiogram in 2019 showed normal LVEF, 60-65%; moderate aortic stenosis. Mean gradient across aortic valve then was 70 mm Hg with a calculated valve area of 1.3 sq cm. Based on cardiology consultation in 2019, coronary at any as follows-cardiac catheterization in 2009-chronically occluded RCA with moderately severe LAD disease and moderate circumflex stenosis with collaterals to RCA from circumflex. Last stress test from 2017 report have RCA ischemia/diaphragmatic attenuation. Overall troponin leak is probably from some combination of rhabdomyolysis and demand related secondary NSTEMI. However clinically has no symptoms whatsoever from this. Additionally, he is quite anemic and also had an eye surgery 2 days ago. Hence for these reasons we can hold off on IV heparin. Correct electrolytes aggressively to avoid any arrhythmias. Correct hemoglobin with transfusions as needed. At his age and frailty and multiple medical comorbidities as well as lack of symptoms, probably conservative care. Echocardiogram can be completed tomorrow. We will follow up with you. Discussed with Dr. Castaneda as as well as Mary Barnes. Procedures Date of Service Date of Service: 02/11/21
[2021-02-11] MEDS: prednisoLONE Acetate 1 % Oph Susp 5 ML DRPBTL 1 DROP EYE-BOTH ×4 (12:15→19:47)
[2021-02-11] MEDS: Moxifloxacin HCl 0.5 % Oph Sol 3 ML DRPBTL 1 DROP EYE-RIGHT ×3 (12:16→19:47)
--- NOTE | 2021-02-11 13:33 | HE.PHANOTE ---
SPOKE TO RN ABOUT HAVING PT'S DAUGHTER RETURN NON-FORMULARY EYE DROPS (TIMOLOL, PILOCARPINE AND BRIMONIDINE)
[2021-02-11 13:41] LABS: Magnesium 1.8 mg/dL (1.6-2.6)
[2021-02-11 16:28] LABS: Anion Gap 10 (12-20); Blood Urea Nitrogen 16 mg/dL (9-16); Calcium 7.3 mg/dL (8.4-10.2); Carbon Dioxide 13 mmol/L (22-29); Chloride 121 mmol/L (96-108); Creatinine Clr Calc Pharmacy 53.8; Estimated Glomerular Filt Rate > 60; Glucose Random 113 mg/dL (60-115); Potassium 3.3 mmol/L (3.3-5.1); Sodium 141 mmol/L (135-145)
--- NOTE | 2021-02-11 16:41 | PM.EVENT ---
Event Note Date of Service: 02/11/21 Event Note: Patient seen examined case discussed with APC On examination patient awake alert answering questions appropriately Lungs clear to auscultation Abdomen soft Extremities no edema Facial abrasion left side of forehead Right eye patch patch in place, left eye legally blind Assessment plan nstemi patient seems to have secondary OR due to significant anemia, stress with recent surgery recent bout of nausea vomiting, will treat conservatively hold IV heparin due to significant anemia and recent right eye surgery Acute on chronic anemia with underlying history of CLL, will transfuse 2 units of packed RBC follow CBC Electrolyte abnormality with hypokalemia, hypomagnesemia and metabolic acidosis likely due to recent GI loss and use of Diamox Will replace electrolytes, give soda bicarb follow BMP
[2021-02-11] MEDS: Sodium Bicarbonate 650 MG TABLET PO ×2 (17:18→19:47)
[2021-02-11 17:39] LABS: Leukocytes Stool Qualitative NEGATIVE (NEGATIVE)
[2021-02-11 18:23] LABS: CDiff Gene PCR NEGATIVE (Negative)
[2021-02-12] VITALS (7 sets, daily range): BP systolic 106–147; BP diastolic 58–75; PULSE 67–80; RESP 18–20; TEMP 35.9–36.8; O2SAT 96–99
[2021-02-12 05:03] LABS: Hematocrit 24.8 % (42-52); Hemoglobin 9.1 g/dl (14.0-18.0); Mean Corpuscular HGB Conc 36.7 g/dl (31.0-36.0); Mean Corpuscular Volume 95.4 fL (80-98); Mean Platelet Volume 10.3 fL (9.4-12.4); Platelet Count 126 X10*3/uL (160-400); Red Cell Distribution Width 14.3 % (11.0-16.0); White Blood Count 7.7 X10*3/uL (4.8-10.8)
[2021-02-12 05:14] LABS: Alanine Aminotransferase 33 U/L (0-40); Albumin Level 2.7 g/dL (3.5-5.0); Alkaline Phosphatase 58 U/L (39-117); Anion Gap 11 (12-20); Aspartate Amino Transferase 52 U/L (5-37); Bilirubin Direct 0.6 mg/dL (0.0-0.5); Bilirubin Total 1.1 mg/dL (0.0-1.0); Blood Urea Nitrogen 15 mg/dL (9-16); Calcium 7.1 mg/dL (8.4-10.2); Carbon Dioxide 13 mmol/L (22-29); Chloride 118 mmol/L (96-108); Creatinine Clr Calc Pharmacy 60.7; Estimated Glomerular Filt Rate > 60; Glucose Random 107 mg/dL (60-115); Magnesium 1.6 mg/dL (1.6-2.6); Sodium 139 mmol/L (135-145); Total Protein 4.2 g/dL (6.5-8.0)
[2021-02-12] MEDS: prednisoLONE Acetate 1 % Oph Susp 5 ML DRPBTL 1 DROP EYE-BOTH ×6 (06:24→19:58)
[2021-02-12 06:57] LABS: Folate 16.1 ng/mL (> or = 4.0); Vitamin B12 778 pg/mL (200-900)
[2021-02-12] MEDS: Amiodarone HCL 200 MG TABLET 100 MG PO (08:07)
[2021-02-12] MEDS: Metoprolol Succinate ER 50 MG TAB.ER.24H PO (08:07)
[2021-02-12] MEDS: Moxifloxacin HCl 0.5 % Oph Sol 3 ML DRPBTL 1 DROP EYE-RIGHT ×4 (08:07→19:57)
[2021-02-12] MEDS: Sodium Bicarbonate 650 MG TABLET PO ×2 (08:07→19:59)
[2021-02-12] MEDS: Folic Acid 1 MG TABLET PO (08:08)
[2021-02-12] MEDS: 0.9 % Sodium Chloride Flush 3 ML SYRINGE IVFLUSH ×3 (08:08→19:59)
[2021-02-12 09:42] LABS: OBS Int Ctl Valid YES; OBS1 POSITIVE (NEGATIVE)
--- NOTE | 2021-02-12 09:49 | P.PNCA_ITS ---
Subjective Subjective Date of Service: 02/12/21 Interval history: He denies any chest pain or shortness of breath. However, when he turns left or right side, he gets vertigo and feels room spinning and that he is going to fall down. Review of Systems Review of Systems Yes all other systems are reviewed and are negative Cardiovascular: Reports as per HPI, Reports no additional cardiovascular complaints, Denies acrocyanosis, Denies cool extremities, Denies painful fingertips, Denies chest pain, Denies chest pain at rest, Denies diaphoresis, Denies syncope, Denies irregular heart rhythm, Denies claudication, Denies leg edema, Denies lightheadedness, Denies palpitations and Denies dyspnea Respiratory: Denies dyspnea Denies syncope Endocrine: Denies palpitations Physical Exam Vital Signs: Last Vital Signs Temp 96.6 F L 02/12/21 06:54 Pulse 67 02/12/21 08:07 Resp 20 02/12/21 06:54 BP 117/61 02/12/21 08:07 Pulse Ox 99 02/12/21 06:54 Body Mass Index 27.2 Const General: cooperative and no acute distress [facility] Other: Unremarkable Neck Neck: Yes normal visual inspection Chest Chest palpation & inspection: normal inspection of the chest Resp Auscultation: clear to auscultation bilaterally, no crackles and no wheezes Cardio Jugular venous distension: no JVD Palpation: normal PMI Heart sounds: S1 normal heart sound present, S2 normal heart sound present, no gallops, Murmur heart sound present systolic III/ and at the right sternal border and no rubs GI Palpation (GI): Soft to palpation Back/Spine/Pelvis Other: unremarkable Skin General skin exam: no rashes or lesions noted Neuro Cranial nerves: Yes Other cranial nerve findings present Extrem General: Yes no clubbing, cyanosis or edema Psych Mental Status: other Results Labs and Meds Result diagrams: 02/12/21 04:27 02/12/21 04:27 Lab results: Laboratory Results - last 24 hr 02/11/21 02/11/21 02/11/21 00:28 08:12 12:56 WBC RBC Hgb Hct MCV MCH MCHC RDW Plt Count MPV Absolute Nucleated RBC Nucleated RBC % (auto) Sodium Potassium Chloride Carbon Dioxide Anion Gap BUN Creatinine Estim Creat Clear Calc Estimated GFR Random Glucose Calcium Magnesium 1.8 Total Bilirubin Direct Bilirubin AST ALT Alkaline Phosphatase Total Creatine Kinase Total Protein Albumin Vitamin B12 778 Folate 16.1 Stool Occult Blood Stool Leukocytes, Qual C. difficile Tox B Gene Blood Type O Positive Antibody Screen NEGATIVE Crossmatch See Detail 02/11/21 02/11/21 02/11/21 15:54 16:37 16:37 WBC RBC Hgb Hct MCV MCH MCHC RDW Plt Count MPV Absolute Nucleated RBC Nucleated RBC % (auto) Sodium 141 Potassium 3.3 D Chloride 121 H Carbon Dioxide 13 L Anion Gap 10 L BUN 16 Creatinine 0.97 Estim Creat Clear Calc 53.8 Estimated GFR > 60 Random Glucose 113 Calcium 7.3 L Magnesium Total Bilirubin Direct Bilirubin AST ALT Alkaline Phosphatase Total Creatine Kinase Total Protein Albumin Vitamin B12 Folate Stool Occult Blood Stool Leukocytes, Qual NEGATIVE C. difficile Tox B Gene NEGATIVE Blood Type Antibody Screen Crossmatch 02/11/21 02/12/21 02/12/21 16:37 04:27 04:27 WBC 7.7 RBC 2.60 L D Hgb 9.1 L D Hct 24.8 L D MCV 95.4 MCH 35.0 H MCHC 36.7 H RDW 14.3 Plt Count 126 L MPV 10.3 Absolute Nucleated RBC 0.000 Nucleated RBC % (auto) 0.0 Sodium 139 Potassium 3.0 L Chloride 118 H Carbon Dioxide 13 L Anion Gap 11 L BUN 15 Creatinine 0.86 Estim Creat Clear Calc 60.7 Estimated GFR > 60 Random Glucose 107 Calcium 7.1 L Magnesium 1.6 Total Bilirubin 1.1 H Direct Bilirubin 0.6 H AST 52 H ALT 33 Alkaline Phosphatase 58 D Total Creatine Kinase Total Protein 4.2 L D Albumin 2.7 L D Vitamin B12 Folate Stool Occult Blood POSITIVE Stool Leukocytes, Qual C. difficile Tox B Gene Blood Type Antibody Screen Crossmatch 02/12/21 04:27 WBC RBC Hgb Hct MCV MCH MCHC RDW Plt Count MPV Absolute Nucleated RBC Nucleated RBC % (auto) Sodium Potassium Chloride Carbon Dioxide Anion Gap BUN Creatinine Estim Creat Clear Calc Estimated GFR Random Glucose Calcium Magnesium Total Bilirubin Direct Bilirubin AST ALT Alkaline Phosphatase Total Creatine Kinase 766 H D Total Protein Albumin Vitamin B12 Folate Stool Occult Blood Stool Leukocytes, Qual C. difficile Tox B Gene Blood Type Antibody Screen Crossmatch Progress Note: A&P Assessment and plan (1) Rhabdomyolysis: Status: Acute (2) NSTEMI (non-ST elevated myocardial infarction): Status: Acute (3) Atherosclerotic cardiovascular disease: Status: Acute (4) Non-rheumatic aortic stenosis: Status: Acute Assessment and Plan: Pertinent data reviewed. Hemoglobin 9.1. White cells 7.7. Platelets 126. Potassium 3. Creatinine is 0.86. Magnesium 1.6. Troponins are 6570; 6604; 4330. Last echocardiogram in 2019 showed normal LVEF, 60-65%; moderate aortic stenosis. Mean gradient across aortic valve then was 70 mm Hg with a calculated valve area of 1.3 sq cm. Based on cardiology consultation in 2019, coronary anatormy as follows-cardiac catheterization in 2009-chronically occluded RCA with moderately severe LAD disease and moderate circumflex stenosis with collaterals to RCA from circumflex. Last stress test from 2017 report have RCA ischemia/diaphragmatic attenuation. Overall troponin leak is probably from some combination of rhabdomyolysis and demand related secondary NSTEMI. However clinically has no symptoms whatsoever from this. Additionally, he is quite anemic and also had an eye surgery 2 days prior to admission. Hence for these reasons not on IV heparin. Correct electrolytes aggressively to avoid any arrhythmias. Correct hemoglobin with transfusions as needed. At his age and frailty and multiple medical comorbidities as well as lack of symptoms, probably conservative care. Echocardiogram can be completed. We will follow up with you. Fall Risk Details Current Medications: Current Medications Generic Name Dose Route Start Last Admin Trade Name Meirq PRN Reason Stop Dose Admin Acetaminophen 650 mg 02/10/21 23:50 02/11/21 00:42 Acetaminophen 325 Mg Tablet PO 650 mg Q6H PRN Administration Pain, Mild (Pain Scale 1-3) Amiodarone HCl 100 mg 02/11/21 09:00 02/12/21 08:07 Amiodarone Hcl 200 Mg Tablet PO 100 mg DAILY ALEJANDRO Administration Docusate Sodium 100 mg 02/10/21 23:50 Docusate Sodium 100 Mg Capsule PO DAILY PRN Constipation Folic Acid 1 mg 02/11/21 09:00 02/12/21 08:08 Folic Acid 1 Mg Tablet PO 1 mg DAILY ALEJANDRO Administration Latanoprost 1 drop 02/11/21 01:45 Latanoprost 0.005 % Ophth Rosa Maria 2.5 Ml Drops EYE-BOTH ONCE ALEJANDRO Metoprolol Succinate 50 mg 02/11/21 09:00 02/12/21 08:07 Metoprolol Succinate Er 50 Mg Tab.Er.24h PO 50 mg DAILY ALEJANDRO Administration Protocol Moxifloxacin HCl 1 drop 02/11/21 13:00 02/12/21 08:07 Moxifloxacin Hcl 0.5 % Oph Rosa Maria 3 Ml Drpbtl EYE-RIGHT 1 drop QID ALEJANDRO Administration Non-Formulary Medication 1 drop 02/11/21 09:00 Brimonidine EYE-BOTH BID ALEJANDRO Non-Formulary Medication 1 drop 02/11/21 09:00 Pilocarpine Hcl EYE-BOTH QID ALEJANDRO Omeprazole 40 mg 02/10/21 23:50 02/11/21 19:47 Omeprazole 40 Mg Capsule.Dr PO 40 mg BEDTIME ALEJANDRO Administration Ondansetron HCl 4 mg 02/10/21 23:50 Ondansetron Hcl 4 Mg/2 Ml Vial IVPUSH Q8H PRN Nausea and Vomiting Potassium Chloride 40 meq 02/12/21 09:10 Potassium Chloride Packet 20 Meq Packet PO 02/12/21 21:01 BID ALEJANDRO Prednisolone Acetate 1 drop 02/11/21 12:00 02/12/21 08:14 Prednisolone Acetate 1 % Oph Susp 5 Ml Drpbtl EYE-BOTH 1 drop 6XD ALEJANDRO Administration Sodium Bicarbonate 650 mg 02/11/21 16:40 02/12/21 08:07 Sodium Bicarbonate 650 Mg Tablet PO 650 mg BID ALEJANDRO Administration Sodium Chloride 3 ml 02/11/21 00:00 02/12/21 08:08 0.9 % Sodium Chloride Flush 3 Ml Syringe IVFLUSH 3 ml QSHIFT ALEJANDRO Administration Timolol Maleate 1 drop 02/13/21 09:00 Timolol Maleate 0.5 % Oph Rosa Maria 5 Ml Drbtl EYE-BOTH DAILY ALEJANDRO Time Spent With Patient Time: Total time spent is greater than 50% in coordination of care (as reinier donis) at patient's floor/unit and/or counseling patient: Time with patient: less than 15 minutes Progress Note: Quality Stroke Does the patient have a stroke diagnosis?: No Procedures Date of Service Date of Service: 02/12/21
[2021-02-12] MEDS: Potassium Chloride Packet 20 MEQ PACKET 40 MEQ PO ×2 (10:03→19:58)
--- NOTE | 2021-02-12 11:00 | CA_ITS ---
Transthoracic Echocardiogram Patient (Last, First, Middle): Hugo Ceballos R Gender: Male Date of : 1935 Age: 85 Procedure Date: 02/12/2021 Procedure Type: Transthoracic Echocardiogram Location: [facility] [place] Height: 172.72 cm Weight: 81.19 kg BSA: 1.95 m2 Heart Rate: bpm BP: 117 / 61 mmHg Music Director: Referring MD: Mary MALLORY Symptoms: syncope; h/o , afib Study Quality: Fair ECG Rhythm: Sinus Conclusions: - The left ventricular systolic function is mildly decreased. The calculated ejection fraction is 51% by biplane method. - The apical inferior, basal inferior, apical septum, and mid inferoseptal segments are hypokinetic. - There is severe calcification of the aortic valve. There is moderate aortic valve stenosis. Findings Left Ventricle Normal left ventricular cavity size. There is normal left ventricular wall thickness. The left ventricular systolic function is mildly decreased. The calculated ejection fraction is 51% by biplane method. E/E prime ratio is between 8 and 15 consistent with indeterminate filling pressures. Evidence suggests grade I (mild) diastolic dysfunction. Wall Motion Rest Echo Findings The apical inferior, basal inferior, apical septum, and mid inferoseptal segments are hypokinetic. Right Ventricle There is normal right ventricular systolic function. Top normal right ventricular size. Atria The left atrium is normal in size. The right atrium is normal in size. Aortic Valve There is severe calcification of the aortic valve. There is moderate aortic valve stenosis. The peak aortic velocity is 2.80 m/s with a calculated peak gradient of 31 mmHg. The mean gradient is 17 mmHg. The aortic valve area is 1.40 cm2. There is no aortic valve regurgitation. Dimensionless index 0.36. Mitral Valve There is mild anterior mitral leaflet thickening. There is mild mitral annular calcification. There is mild mitral valve regurgitation. There is no mitral valve stenosis. Pulmonic Valve The pulmonic valve was not well visualized. Tricuspid Valve There is trace tricuspid valve regurgitation. The pulmonary artery systolic pressure is normal. Great Vessels The asc aorta is normal in size. Venous The inferior vena cava is mildly dilated and collapses greater than 50% with inspiration. Pericardium/Pleural There is no evidence of pericardial effusion. Prior Study Comparison Changes noted compared to prior study dated: 11/09/2018. See comments on wall motion. Measurements 2D Linear Measurements RVIDd: 3.81 RVIDd Index: 1.95 IVSd: 0.94 0.6-0.9/0.6-1.0 cm LVIDd: 5.26 3.9-5.3/4.2-5.9 cm LVIDd Index: 2.70 2.4-3.2/2.2-3.1 cm/m2 LVIDs: 3.84 2.0-3.6 cm LVPWd: 1.06 0.7-1.1 cm Ao Root: 3.50 2.1-3.5 cm LA Diam: 3.80 2.7-3.8/3.0-4.0 cm LAIDs Index: 1.95 1.5-2.3 cm/m2 LV Mass: 246.78 67-162/88-224 g LV Mass Index: 126.55 43-95/49-115 g/m2 LVOT Diam: 2.20 3.0+(-)1.3 cm 2D Systolic Function EF 4C: 47.90 >55% EF 2C: 52.80 >55% EF BiP: 50.50 >55% Mitral Valve MV Pk E: 0.80 MV PK A: 0.94 MV Decel Time: 199.00 E/A: 0.80 E'Lateral: 7.51 E'Medial: 6.42 E/E' Med: 12.40 E/E' Lat: 10.60 Aortic Valve AoV Pk Lamont: 2.80 AoV Mn Lamont: 1.95 AoV VTI: 0.64 AoV Pk Grad: 31.00 Aov Mn Grad: 17.00 LEXA Cont.VTI: 1.40 LVOT LVOT Pk Lamont: 1.02 LVOT Mn Lamont: 0.71 LVOT VTI: 0.24 LVOT Pk Grad: 4.00 LVOT Mn Grad: 2.00 LVOT Diam: 2.20 LVOT Area: 3.80 Diastolic Function MV Pk E: 0.80 MV Pk A: 0.94 E/A: 0.80 E'Medial: 6.42 E/E' Med: 12.40 E' Laterial: 7.51 E/E' Lat: 10.60 Right Ventricle TVS' Lamont: 9.70 Tricuspid Valve TR Pk Lamont: 2.27 TR Pk Grad: 21.00 RA Press: 8.00 RVSP: 29.00 Great Vessels Aorta Ao Root-2D: 3.50 2.0-3.7 cm Ao Asc: 3.80 2.1-3.4 cm Updated in Other Vendor System with Status of Final Memo Fernandez MD electronically signed on 02/12/2021 12:09:38 PM with status of Final
--- NOTE | 2021-02-12 12:16 | P.CDIC_ITS ---
CDI Concurrent Query Service Date: 02/12/21 Documentation Clarification: Please clarify if you are treating a proba ble/suspected/likely or confirmed: Consistency in documentation within the medical record: Sepsis, treating, rule out, resolved Sirs Other, please specify if known NSTEMI, Acute on Chronic Blood loss anemia, Fevers Provider Response: Other Other Diagnosis: NSTEMI, Acute on Chronic Blood loss anemia, Fevers PLEASE DO NOT DELETE/MODIFY EXISTING CONTENT Additional information is needed in order to code to the highest accuracy and appropriate Severity of Illness (SOI). Please clarify the information noted below in your progress notes and discharge summary. Risk Factors/Clinical Indicators/Treatments ED: 02/10 - Given his hypotension as well as fevers pt was given sepsis fluids, IV resuscitation for sepsis. PN: 02/11 - Assessment - while in Ed pt developed fever, hypotension and admitted for Sepsis. Met criteria for Sirs on admit w fever of 101.2 and tachypnea. UA neg Normal LA, D/C antibiotics, blood culture pending. CDS: Mylene Lipscomb CCS, CDIS Contact Number: [phone] Please Review the information above and exercise your independent professional judgment in responding to the query. If you concur, pleas document in the PROGRESS NOTES and DISCHARGE SUMMARY. If you do not agree with the query, please document in the query above. THIS QUERY IS PART OF THE PERMANENT MEDICAL RECORD
--- NOTE | 2021-02-12 13:39 | HO.PM.IMPN ---
Subjective Subjective Date of Service: 02/12/21 Interval History: seen and examined this AM denies cp or sob reports veritgo symptoms when he moves his head to extreme right or left reports diarrhea this AM denies pain Review of Systems General - no fevers or chills Cardiovascular - no chest pain Respiratory - no shortness of breath or cough Abdominal- no abdominal pain, nausea, vomiting, diarrhea Physical Exam Vital Signs: Vital Signs: Last Vital Signs Temp 97.5 F 02/12/21 11:35 Pulse 70 02/12/21 11:35 Resp 20 02/12/21 11:35 BP 113/60 02/12/21 11:35 Pulse Ox 99 02/12/21 11:35 Body Mass Index 27.2 Const: Other: General - no acute distress, appears comfortable Cardiovascular - regular rate and rhythm, S1-S2 Lungs - normal respiratory effort, clear to auscultation bilaterally, no wheezing Abdomen - soft, nontender, no rebound or guarding Extremities - no edema bilaterally Neuro - awake and alert, no focal deficits Objective Data Current Medications Generic Name Dose Route Start Last Admin Trade Name Vick PRN Reason Stop Dose Admin Acetaminophen 650 mg 02/10/21 23:50 02/11/21 00:42 Acetaminophen 325 Mg Tablet PO 650 mg Q6H PRN Administration Pain, Mild (Pain Scale 1-3) Amiodarone HCl 100 mg 02/11/21 09:00 02/12/21 08:07 Amiodarone Hcl 200 Mg Tablet PO 100 mg DAILY ALEJANDRO Administration Docusate Sodium 100 mg 02/10/21 23:50 Docusate Sodium 100 Mg Capsule PO DAILY PRN Constipation Folic Acid 1 mg 02/11/21 09:00 02/12/21 08:08 Folic Acid 1 Mg Tablet PO 1 mg DAILY ALEJANDRO Administration Latanoprost 1 drop 02/11/21 01:45 Latanoprost 0.005 % Ophth Rosa Maria 2.5 Ml Drops EYE-BOTH ONCE ALEJANDRO Loperamide HCl 2 mg 02/12/21 13:38 Loperamide Hcl 2 Mg Capsule PO Q6H PRN Diarrhea Meclizine HCl 25 mg 02/12/21 13:38 Meclizine Hcl 25 Mg Tablet PO 02/12/21 13:39 ONCE ONE Metoprolol Succinate 50 mg 02/11/21 09:00 02/12/21 08:07 Metoprolol Succinate Er 50 Mg Tab.Er.24h PO 50 mg DAILY ALEJANDRO Administration Protocol Moxifloxacin HCl 1 drop 02/11/21 13:00 02/12/21 13:17 Moxifloxacin Hcl 0.5 % Oph Rosa Maria 3 Ml Drpbtl EYE-RIGHT 1 drop QID ALEJANDRO Administration Non-Formulary Medication 1 drop 02/11/21 09:00 Brimonidine EYE-BOTH BID ALEJANDRO Non-Formulary Medication 1 drop 02/11/21 09:00 Pilocarpine Hcl EYE-BOTH QID ALEJANDRO Omeprazole 40 mg 02/10/21 23:50 02/11/21 19:47 Omeprazole 40 Mg Capsule.Dr PO 40 mg BEDTIME ALEJANDRO Administration Ondansetron HCl 4 mg 02/10/21 23:50 Ondansetron Hcl 4 Mg/2 Ml Vial IVPUSH Q8H PRN Nausea and Vomiting Potassium Chloride 40 meq 02/12/21 09:10 02/12/21 10:03 Potassium Chloride Packet 20 Meq Packet PO 02/12/21 21:01 40 meq BID ALEJANDRO Administration Prednisolone Acetate 1 drop 02/11/21 12:00 02/12/21 13:17 Prednisolone Acetate 1 % Oph Susp 5 Ml Drpbtl EYE-BOTH 1 drop 6XD ALEJANDRO Administration Sodium Bicarbonate 650 mg 02/11/21 16:40 02/12/21 08:07 Sodium Bicarbonate 650 Mg Tablet PO 650 mg BID ALEJANDRO Administration Sodium Chloride 3 ml 02/11/21 00:00 02/12/21 08:08 0.9 % Sodium Chloride Flush 3 Ml Syringe IVFLUSH 3 ml QSHIFT ALEJANDRO Administration Timolol Maleate 1 drop 02/13/21 09:00 Timolol Maleate 0.5 % Oph Rosa Maria 5 Ml Drbtl EYE-BOTH DAILY [facility] Labs CBC & Chem 7: 02/12/21 04:27 02/12/21 04:27 Labs: Laboratory Results - last 24 hr 02/11/21 02/11/21 02/11/21 00:28 08:12 12:56 MCV MCH MCHC RDW Plt Count MPV Absolute Nucleated RBC Nucleated RBC % (auto) Anion Gap Estim Creat Clear Calc Estimated GFR Random Glucose Calcium Magnesium 1.8 Total Bilirubin Direct Bilirubin AST ALT Alkaline Phosphatase Total Creatine Kinase Total Protein Albumin Vitamin B12 778 Folate 16.1 Stool Occult Blood Stool Leukocytes, Qual C. difficile Tox B Gene Blood Type O Positive Antibody Screen NEGATIVE Crossmatch See Detail 02/11/21 02/11/21 02/11/21 15:54 16:37 16:37 MCV MCH MCHC RDW Plt Count MPV Absolute Nucleated RBC Nucleated RBC % (auto) Anion Gap 10 L Estim Creat Clear Calc 53.8 Estimated GFR > 60 Random Glucose 113 Calcium 7.3 L Magnesium Total Bilirubin Direct Bilirubin AST ALT Alkaline Phosphatase Total Creatine Kinase Total Protein Albumin Vitamin B12 Folate Stool Occult Blood Stool Leukocytes, Qual NEGATIVE C. difficile Tox B Gene NEGATIVE Blood Type Antibody Screen Crossmatch 02/11/21 02/12/21 02/12/21 16:37 04:27 04:27 MCV 95.4 MCH 35.0 H MCHC 36.7 H RDW 14.3 Plt Count 126 L MPV 10.3 Absolute Nucleated RBC 0.000 Nucleated RBC % (auto) 0.0 Anion Gap 11 L Estim Creat Clear Calc 60.7 Estimated GFR > 60 Random Glucose 107 Calcium 7.1 L Magnesium 1.6 Total Bilirubin 1.1 H Direct Bilirubin 0.6 H AST 52 H ALT 33 Alkaline Phosphatase 58 D Total Creatine Kinase Total Protein 4.2 L D Albumin 2.7 L D Vitamin B12 Folate Stool Occult Blood POSITIVE Stool Leukocytes, Qual C. difficile Tox B Gene Blood Type Antibody Screen Crossmatch 02/12/21 04:27 MCV MCH MCHC RDW Plt Count MPV Absolute Nucleated RBC Nucleated RBC % (auto) Anion Gap Estim Creat Clear Calc Estimated GFR Random Glucose Calcium Magnesium Total Bilirubin Direct Bilirubin AST ALT Alkaline Phosphatase Total Creatine Kinase 766 H D Total Protein Albumin Vitamin B12 Folate Stool Occult Blood Stool Leukocytes, Qual C. difficile Tox B Gene Blood Type Antibody Screen Crossmatch Microbiology Microbiology Results: Microbiology 02/11/21 16:37 Stool Culture - Preliminary Stool Normal so far. 02/10/21 23:32 Blood Culture - Preliminary Blood - Venous No growth after 24 hours. 02/10/21 23:32 Blood Culture - Preliminary Blood - Venous No growth after 24 hours. Assessment and Plan (1) NSTEMI (non-ST elevated myocardial infarction): Status: Acute Assessment and Plan: This is an 85-year-old male with past medical history of afib not on AC, CML, moderat , previous UT, HTN, HLD, BPH, MARIBEL, recent eye surgery for glaucoma who presents to the hospital after fall and syncope.? While in the ED patient developed fever, hypotension and is now admitted for sepsis as well as evaluation of syncope 1. NSTEMI suspected type 2 from significant anemia, fall / rhabdo heparin gtt deferrred (see reasonsing in cardiology notes) Echo done, no RWMA identified 2. Acute on [suspected chronic] anemia, macrocytic 2a. CLL - continue baseline meds s/p 1 unit prbc h/h improve, trend; follow enzymes FOBT positive - will ask GI input 3. syncope monitor ? due to hypovolumia from anemia 4. SIRS on admission resolved no evidence of bacterial infection 5. Diarrhea C. diff negative and cultures wnl imodium PRN 6. Metabolic acidosis, hypoK, hypoMg, DELMA from diamox + diarrhea replete aggressively SCr improving with IV hydration 7. Recent trabeculectomy at [facility] d/w Dr. Cook @ [phone] -- patient was to see him tomorrow for post-op; Dr. Cook recommends the following: if patient d/c next 1-2 days, should follow up with him Friday/Friday. If he is to stay in the hospital, would need local ophthalmology follow up sooner. continue pred forte / moxifloxacin (this was confirmed by our pharmacy with Dr. Cook) 8. elevated liver enzymes down trending 9. rhabdomyolysis improving with IVF 10. thrombocytopenia -follow cbc 11. history of AFib -not on any anticoagulation, possibly due to chronic anemia. takes baby asa -continue amiodarone and metoprolol DNR/DNI DVT pptx, mechanical Quality Stroke Does the patient have a stroke diagnosis?: No VTE Prior VTE?: No VTE Risk Level:: Medical - moderate - high VTE Device Contraindication: N/A - Device Ordered VTE Drug Contraindication: Treatment Not Indicated
[2021-02-12] MEDS: Meclizine HCl 25 MG TABLET PO (14:56)
[2021-02-12] MEDS: Lactated Ringers 1,000 ML 100 ML IVCONT (16:51)
--- NOTE | 2021-02-12 17:09 | PM.EVENT ---
Event Note Date of Service: 02/12/21 Event Note: GI Consult-History from patient, RN, and EMR Imp: Worsening anemia with Heme + stool. His Hgb has gone from 10.7 on 12/29/20 to 7.2 on 02/11/21. He has had several weeks of some anorexia. He denies any obvious bleeding nor melena, N/V, nor abdominal pain. He takes aspirin daily and Iron. He denies NSAIDs, tobacco, or alcohol. He had a colonoscopy in 07/2020 with removal of a polyp. His last EGD was in 07/2018 with some mild gastritis and duodenitis. 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 Pedro. Diff dx: PUD/gastritis/duodenitis on low dose aspirin. Rec: EGD with [facility] on 02/14/21. Full consent obtained for that, including risks of bleeding and perforation. I will hold off on a colonoscopy for now given his last exam being just in 07/2020. He may need a small bowel video capsule study done at some point for further w/u of the anemia if the EGD is negative. He might benefit from a Hematology consult while here as well in regard to the anemia and underlying CML. D/W patient in detail. He understands and is comfortable with this plan. Thanks.
[2021-02-12] MEDS: Omeprazole 40 MG CAPSULE.DR PO (19:57)
--- NOTE | 2021-02-12 22:08 | CONS_ITS ---
DATE OF SERVICE: 02/12/2021 REASON FOR CONSULTATION: Anemia and heme-positive stool. DESCRIPTION OF PROCEDURE: The patient is an 85-year-old male, well known to me from previous office visits and outpatient procedures. I last saw him in July, at which time, he underwent a followup colonoscopy with removal of a single tubular adenoma. He does have a previous history of a large adenoma removed from the cecum in 2018. He also had an upper endoscopy at that time with the finding of some mild gastritis and duodenitis with biopsies negative for celiac disease and Helicobacter pylori. After his procedure in July, he reports that he was doing well from a GI standpoint. However, over the past few weeks, he describes some anorexia, some softer than usual bowel movements and some mild weight loss. He does take a low-dose aspirin daily along with iron. He does not use any other blood thinners nor NSAIDs. 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 Pedro for followup of that. This appears to have been stable on his regimen of Gleevec. His hemoglobin in early December was 10.7. He came to the hospital after a fall 2 days ago and was admitted with a drop in his hemoglobin to as low as 7.2 on February 11. His stool was Hemoccult positive, although there was no melena nor hematochezia. He does describe the anorexia, but denies any chronic heartburn, dysphagia, nausea, nor vomiting. He denies any abdominal pain. He does not use any chronic NSAIDs as mentioned, and does not smoke nor use any significant amounts of alcohol. Since admission here, he has received transfusions and his hemoglobin has improved from 7.2 yesterday to 9.1 today. MEDICATIONS: At home included acetazolamide, amiodarone, vitamin C, aspirin 81 mg, eyedrops, iron, folic acid, Imatinib, metoprolol, omeprazole. His medications here in the hospital include acetaminophen, amiodarone, Colace, folic acid, magnesium, Imodium p.r.n., meclizine p.r.n., metoprolol, eyedrops, omeprazole, Zofran, potassium. PAST MEDICAL HISTORY: Large cecal adenoma removed in 2018. A followup colonoscopy in July 2020 revealed only a single tubular adenoma in the ascending colon. Upper endoscopy in 2018 revealed some mild gastritis and duodenitis with biopsies negative for celiac disease and Helicobacter pylori. 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 Pedro. Choledocholithiasis and cholangitis in 2017, treated with ERCP and sphincterotomy. Glaucoma. He is blind in the left eye and just had surgery in the right eye several days ago. He does have some limited vision in the right eye. He has had a history of pneumonia, hypertension, sleep apnea. He denies any diabetes, stroke, lung disease, nor kidney disease. He had a knee replacement in 2013. Broken wrist and cholecystectomy in 2017. FAMILY HISTORY: Negative for GI malignancy. SOCIAL HISTORY: He lives by himself. He does not smoke nor use any significant amounts of alcohol. REVIEW OF SYSTEMS: CONSTITUTIONAL: He has had some anorexia and weakness as above. SKIN: No rash. No pruritus. CARDIAC: No chest pain. PULMONARY: No cough. No hemoptysis. GASTROINTESTINAL: As above. URINARY: No dysuria. No hematuria. PHYSICAL EXAMINATION: GENERAL: The patient is a pleasant, alert, comfortable male. He is pale. SKIN: Warm and dry. NECK: Supple without lymphadenopathy. CHEST: Clear. CARDIAC: Normal S1 and S2. ABDOMEN: Soft, nondistended, nontender and without mass. LABORATORY DATA: As above. Stool was Hemoccult positive. White blood cell count 7.7, hemoglobin 9.1, MCV 95, platelets 126,000. PT 12.2 with INR of 1.1. Sodium 139, potassium 3.0, chloride 118, CO2 of 13, BUN 15, creatinine 0.9. Ferritin was 409 on February 10, total bilirubin 1.1, AST 52, ALT 33, alkaline phosphatase 58, albumin 2.7. Blood cultures are negative thus far. COVID was negative. Stool for C diff was negative. Stool for WBCs was negative. CAT scan of the pelvis was negative. Chest x-ray was negative. CAT scan of the head was negative. IMPRESSION: The patient is an 85-year-old male presenting with worsening anemia and heme-positive stool while on low-dose aspirin, iron, and omeprazole. His most recent colonoscopy was just back in July, which revealed a single polyp that was removed. His last upper endoscopy was in September of 2018 with the finding of only mild gastritis and mild duodenitis. At this point given the significant drop in hemoglobin, heme-positive stool, and some upper GI complaints of anorexia, I did recommend he undergo upper endoscopy with monitored anesthesia care. He may have silent ulcer disease or significant gastritis. I would hold off on a colonoscopy at this time given the most recent exam being just 6 months ago. Depending upon the findings of the upper endoscopy, he may need further evaluation with small bowel video capsule study and even a consideration of repeat colonoscopy as well. Given the underlying leukemia, he might benefit from a hematology consult while here due to the anemia. This has all been discussed with the patient in detail. He is comfortable with this plan. Thank you for the consultation. MD JOE Campuzano/CARL / [phone] SHARMIN
--- NOTE | 2021-02-12 22:51 | MHC.SHP ---
Pre-Procedural Eval Section A Date of Service: 02/14/21 The patient is an INPATIENT: Yes The History & Physical has been completed within 30 days and I have reviewed it.: Yes Section B Chief Complaint: Rhabdo, fall, syncope, elevated trop Allergies: Allergies Allergy/AdvReac Type Severity Reaction Status Date / Time No Known Allergies Allergy Verified 12/26/20 16:31 [No Known Allergies*] Plan I have reviewed the history and physical and performed a pertinent physical examination on my patient. No changes have occurred unless specified.
[2021-02-13] VITALS (11 sets, daily range): BP systolic 113–145; BP diastolic 54–73; PULSE 68–88; RESP 17–20; TEMP 35.9–37.2; O2SAT 94–100
[2021-02-13] MEDS: Acetaminophen 325 MG TABLET 650 MG PO ×2 (03:52→20:23)
[2021-02-13] MEDS: prednisoLONE Acetate 1 % Oph Susp 5 ML DRPBTL 1 DROP EYE-BOTH ×4 (05:31→18:38)
[2021-02-13 08:03] LABS: Hematocrit 25.7 % (42-52); Hemoglobin 9.3 g/dl (14.0-18.0); Mean Corpuscular HGB Conc 36.2 g/dl (31.0-36.0); Mean Corpuscular Hemoglobin 35.1 pg (27.0-33.0); Platelet Count 138 X10*3/uL (160-400); Red Blood Count 2.65 X10*6/uL (4.60-5.80); Red Cell Distribution Width 14.6 % (11.0-16.0); White Blood Count 6.7 X10*3/uL (4.8-10.8)
[2021-02-13 08:38] LABS: Alanine Aminotransferase 29 U/L (0-40); Albumin Level 2.5 g/dL (3.5-5.0); Alkaline Phosphatase 54 U/L (39-117); Anion Gap 9 (12-20); Aspartate Amino Transferase 33 U/L (5-37); Bilirubin Direct 0.4 mg/dL (0.0-0.5); Bilirubin Total 1.1 mg/dL (0.0-1.0); Blood Urea Nitrogen 11 mg/dL (9-16); Calcium 7.3 mg/dL (8.4-10.2); Carbon Dioxide 16 mmol/L (22-29); Chloride 117 mmol/L (96-108); Creatinine Clr Calc Pharmacy 62.9; Estimated Glomerular Filt Rate > 60; Glucose Random 102 mg/dL (60-115); Potassium 3.4 mmol/L (3.3-5.1); Sodium 139 mmol/L (135-145); Total Protein 4.1 g/dL (6.5-8.0)
[2021-02-13] MEDS: Metoprolol Succinate ER 50 MG TAB.ER.24H PO (08:47)
[2021-02-13] MEDS: Sodium Bicarbonate 650 MG TABLET PO ×2 (08:47→20:23)
[2021-02-13] MEDS: Folic Acid 1 MG TABLET PO (08:48)
[2021-02-13] MEDS: Amiodarone HCL 200 MG TABLET 100 MG PO (08:48)
[2021-02-13] MEDS: Moxifloxacin HCl 0.5 % Oph Sol 3 ML DRPBTL 1 DROP EYE-RIGHT ×4 (08:49→20:28)
[2021-02-13] MEDS: 0.9 % Sodium Chloride Flush 3 ML SYRINGE IVFLUSH ×3 (08:49→20:28)
--- NOTE | 2021-02-13 09:03 | MHC.CM.PN ---
CM met with Patient at bedside to discuss PT'S recommendation for Inpatient Acute Rehab. Patient's first choice facility is [facility] but he is agreeable to referrals also to [facility] if [facility] does not have a bed. CM will continue to follow for dc planning.
--- NOTE | 2021-02-13 10:29 | HO.PM.IMPN ---
Subjective Subjective Date of Service: 02/13/21 Interval History: seen and examined this AM no vertigo symptoms, but felt dizzy when stood up for orthostatic vitals denies any R eye pain, changes in vision Review of Systems General - no fevers or chills Cardiovascular - no chest pain Respiratory - no shortness of breath or cough Abdominal- no abdominal pain, nausea, vomiting, diarrhea Physical Exam Vital Signs: Vital Signs: Last Vital Signs Temp 98.6 F 02/13/21 03:22 Pulse 83 02/13/21 09:42 Resp 18 02/13/21 08:00 BP 140/61 H 02/13/21 09:42 Pulse Ox 99 02/13/21 08:45 Body Mass Index 27.2 Const: Other: General - no acute distress, appears comfortable Eyes - no pain with R eye movement Cardiovascular - regular rate and rhythm, S1-S2 Lungs - normal respiratory effort, clear to auscultation bilaterally, no wheezing Abdomen - soft, nontender, no rebound or guarding Extremities - no edema bilaterally Neuro - awake and alert, no focal deficits Objective Data Current Medications Generic Name Dose Route Start Last Admin Trade Name Freq PRN Reason Stop Dose Admin Acetaminophen 650 mg 02/10/21 23:50 02/13/21 03:52 Acetaminophen 325 Mg Tablet PO 650 mg Q6H PRN Administration Pain, Mild (Pain Scale 1-3) Amiodarone HCl 100 mg 02/11/21 09:00 02/13/21 08:48 Amiodarone Hcl 200 Mg Tablet PO 100 mg DAILY ALEJANDRO Administration Docusate Sodium 100 mg 02/10/21 23:50 Docusate Sodium 100 Mg Capsule PO DAILY PRN Constipation Folic Acid 1 mg 02/11/21 09:00 02/13/21 08:48 Folic Acid 1 Mg Tablet PO 1 mg DAILY ALEJANDRO Administration Loperamide HCl 2 mg 02/12/21 13:38 Loperamide Hcl 2 Mg Capsule PO Q6H PRN Diarrhea Metoprolol Succinate 50 mg 02/11/21 09:00 02/13/21 08:47 Metoprolol Succinate Er 50 Mg Tab.Er.24h PO 50 mg DAILY ALEJANDRO Administration Protocol Moxifloxacin HCl 1 drop 02/11/21 13:00 02/13/21 08:49 Moxifloxacin Hcl 0.5 % Oph Rosa Maria 3 Ml Drpbtl EYE-RIGHT 1 drop QID ALEJANDRO Administration Patient Own 6 each 02/12/21 21:00 02/12/21 20:04 Medication (Imatinib PO 6 each 100 Mg Tablet) DAILY@2100 ALEJANDRO Administration Omeprazole 40 mg 02/10/21 23:50 02/12/21 19:57 Omeprazole 40 Mg Capsule.Dr PO 40 mg BEDTIME ALEJANDRO Administration Ondansetron HCl 4 mg 02/10/21 23:50 Ondansetron Hcl 4 Mg/2 Ml Vial IVPUSH Q8H PRN Nausea and Vomiting Prednisolone Acetate 1 drop 02/11/21 12:00 02/13/21 08:49 Prednisolone Acetate 1 % Oph Susp 5 Ml Drpbtl EYE-BOTH 1 drop 6XD ALEJANDRO Administration Sodium Bicarbonate 650 mg 02/11/21 16:40 02/13/21 08:47 Sodium Bicarbonate 650 Mg Tablet PO 650 mg BID ALEJANDRO Administration Sodium Chloride 3 ml 02/11/21 00:00 02/13/21 08:49 0.9 % Sodium Chloride Flush 3 Ml Syringe IVFLUSH 3 ml QSHIFT ALEJANDRO Administration Labs CBC & Chem 7: 02/13/21 07:25 02/13/21 07:25 Labs: Laboratory Results - last 24 hr 02/13/21 02/13/21 07:25 07:25 MCV 97.0 MCH 35.1 H MCHC 36.2 H RDW 14.6 Plt Count 138 L MPV 10.0 Absolute Nucleated RBC 0.000 Nucleated RBC % (auto) 0.0 Anion Gap 9 L Estim Creat Clear Calc 62.9 Estimated GFR > 60 Random Glucose 102 Calcium 7.3 L Total Bilirubin 1.1 H Direct Bilirubin 0.4 AST 33 ALT 29 Alkaline Phosphatase 54 Total Protein 4.1 L Albumin 2.5 L Microbiology Microbiology Results: Microbiology 02/11/21 16:37 Stool Culture - Preliminary Stool Normal so far. 02/10/21 23:32 Blood Culture - Preliminary Blood - Venous No growth after 48 hours. 02/10/21 23:32 Blood Culture - Preliminary Blood - Venous No growth after 48 hours. Assessment and Plan (1) NSTEMI (non-ST elevated myocardial infarction): Status: Acute Assessment and Plan: This is an 85-year-old male with past medical history of afib not on AC, CML, moderat , previous NM, HTN, HLD, BPH, MARIBEL, recent eye surgery for glaucoma who presents to the hospital after fall and syncope.? While in the ED patient developed fever, hypotension and is now admitted for sepsis as well as evaluation of syncope 1. NSTEMI suspected type 2 from significant anemia, fall / rhabdo heparin gtt deferrred (see reasoning in cardiology notes) Echo done, no RWMA identified 2. Acute on [suspected chronic] anemia, macrocytic 2a. CLL - continue baseline meds h/h stable GI planning EGD Heme/onc consult placed 3. syncope monitor orthostatics negative 4. SIRS on admission resolved no evidence of bacterial infection 5. Diarrhea C. diff negative and cultures wnl imodium PRN 6. Metabolic acidosis, hypoK, hypoMg, DELMA all improving multifactorial from diarrhea, diamox use, dehydration 7. Recent trabeculectomy at [facility] d/w Dr. Cook @ [phone] -- patient was to see him tomorrow for post-op; Dr. Cook recommends the following: if patient d/c next 1-2 days, should follow up with him Friday/Friday. If he is to stay in the hospital, would need local ophthalmology follow up sooner. continue pred forte / moxifloxacin (this was confirmed by our pharmacy with Dr. Cook) 8. elevated liver enzymes down trending 9. rhabdomyolysis improving with IVF 10. thrombocytopenia -follow cbc 11. history of AFib -not on any anticoagulation, possibly due to chronic anemia. takes baby asa -continue amiodarone and metoprolol DNR/DNI DVT pptx, mechanical Quality Stroke Does the patient have a stroke diagnosis?: No VTE Prior VTE?: No VTE Risk Level:: Medical - moderate - high VTE Device Contraindication: N/A - Device Ordered VTE Drug Contraindication: Treatment Not Indicated
[2021-02-13 11:16] LABS: Iron 42 mcg/dL (45-160); Percent Iron Saturation 25 % (15-50); Total Iron Binding Capacity 171 mcg/dL (228-428); Unsaturated Iron Binding 129 ug/dL
--- NOTE | 2021-02-13 11:17 | PM.PNCARD ---
Subjective Subjective Date of Service: 02/13/21 Interval history: No cardiac symptoms. Review of Systems Review of Systems Yes all other systems are reviewed and are negative Cardiovascular: Reports as per HPI, Reports no additional cardiovascular complaints, Denies acrocyanosis, Denies cool extremities, Denies painful fingertips, Denies chest pain, Denies chest pain at rest, Denies diaphoresis, Denies syncope, Denies irregular heart rhythm, Denies claudication, Denies leg edema, Denies lightheadedness, Denies palpitations and Denies dyspnea Respiratory: Denies dyspnea Denies syncope Endocrine: Denies palpitations Physical Exam Vital Signs: Last Vital Signs Temp 96.6 F L 02/13/21 11:01 Pulse 68 02/13/21 11:01 Resp 19 02/13/21 11:01 BP 137/67 02/13/21 11:01 Pulse Ox 100 02/13/21 11:01 Body Mass Index 27.2 Const General: cooperative and no acute distress [facility] Other: Unremarkable Neck Neck: Yes normal visual inspection Chest Chest palpation & inspection: normal inspection of the chest Resp Auscultation: clear to auscultation bilaterally, no crackles and no wheezes Cardio Jugular venous distension: no JVD Palpation: normal PMI Heart sounds: S1 normal heart sound present, S2 normal heart sound present, no gallops, Murmur heart sound present systolic III/ and at the right sternal border and no rubs GI Palpation (GI): Soft to palpation Back/Spine/Pelvis Other: unremarkable Skin General skin exam: no rashes or lesions noted Neuro Cranial nerves: Yes Other cranial nerve findings present Extrem General: Yes no clubbing, cyanosis or edema Psych Mental Status: other Results Labs and Meds Result diagrams: 02/13/21 07:25 02/13/21 07:25 Lab results: Laboratory Results - last 24 hr 02/13/21 02/13/21 02/13/21 07:25 07:25 10:18 WBC 6.7 RBC 2.65 L Hgb 9.3 L Hct 25.7 L MCV 97.0 MCH 35.1 H MCHC 36.2 H RDW 14.6 Plt Count 138 L MPV 10.0 Absolute Nucleated RBC 0.000 Nucleated RBC % (auto) 0.0 Sodium 139 Potassium 3.4 Chloride 117 H Carbon Dioxide 16 L Anion Gap 9 L BUN 11 Creatinine 0.83 Estim Creat Clear Calc 62.9 Estimated GFR > 60 Random Glucose 102 Calcium 7.3 L Iron 42 L TIBC 171 L % Saturation 25 Unsat Iron Binding 129 Total Bilirubin 1.1 H Direct Bilirubin 0.4 AST 33 ALT 29 Alkaline Phosphatase 54 Total Protein 4.1 L Albumin 2.5 L Progress Note: A&P Assessment and plan (1) Rhabdomyolysis: Status: Acute (2) NSTEMI (non-ST elevated myocardial infarction): Status: Acute (3) Atherosclerotic cardiovascular disease: Status: Acute (4) Non-rheumatic aortic stenosis: Status: Acute (5) Preoperative cardiovascular examination: Status: Acute Assessment and Plan: Pertinent data reviewed. Troponins are 6570; 6604; 4330. Based on cardiology consultation in 2019, coronary anatormy as follows-cardiac catheterization in 2009-chronically occluded RCA with moderately severe LAD disease and moderate circumflex stenosis with collaterals to RCA from circumflex. Last stress test from 2017 report have RCA ischemia/diaphragmatic attenuation. Current echocardiogram with LVEF of 51%; inferior wall motion abnormality likely related to right+/-circumflex disease and moderate aortic stenosis. Overall troponin leak is probably from some combination of rhabdomyolysis and demand related secondary NSTEMI. However clinically has no symptoms whatsoever from this. Additionally, he is quite anemic and also had an eye surgery 2 days prior to admission. Hence for these reasons was not put on IV heparin. Continue to correct electrolytes aggressively to avoid any arrhythmias. Correct hemoglobin with transfusions as needed. At his age, frailty and multiple medical comorbidities as well as lack of symptoms, probably conservative care. With regard to EGD, seems appropriate for evaluation of anemia, and hence may proceed. But based on the above, atleast intermediate cardiac risk. Then if OK from GI start Aspirin. Fall Risk Details Current Medications: Current Medications Generic Name Dose Route Start Last Admin Trade Name Freq PRN Reason Stop Dose Admin Acetaminophen 650 mg 02/10/21 23:50 02/13/21 03:52 Acetaminophen 325 Mg Tablet PO 650 mg Q6H PRN Administration Pain, Mild (Pain Scale 1-3) Amiodarone HCl 100 mg 02/11/21 09:00 02/13/21 08:48 Amiodarone Hcl 200 Mg Tablet PO 100 mg DAILY ALEJANDRO Administration Docusate Sodium 100 mg 02/10/21 23:50 Docusate Sodium 100 Mg Capsule PO DAILY PRN Constipation Folic Acid 1 mg 02/11/21 09:00 02/13/21 08:48 Folic Acid 1 Mg Tablet PO 1 mg DAILY ALEJANDRO Administration Loperamide HCl 2 mg 02/12/21 13:38 Loperamide Hcl 2 Mg Capsule PO Q6H PRN Diarrhea Metoprolol Succinate 50 mg 02/11/21 09:00 02/13/21 08:47 Metoprolol Succinate Er 50 Mg Tab.Er.24h PO 50 mg DAILY ALEJANDRO Administration Protocol Moxifloxacin HCl 1 drop 02/11/21 13:00 02/13/21 08:49 Moxifloxacin Hcl 0.5 % Oph Rosa Maria 3 Ml Drpbtl EYE-RIGHT 1 drop QID ALEJANDRO Administration Patient Own 6 each 02/12/21 21:00 02/12/21 20:04 Medication (Imatinib PO 6 each 100 Mg Tablet) DAILY@2100 ALEJANDRO Administration Omeprazole 40 mg 02/10/21 23:50 02/12/21 19:57 Omeprazole 40 Mg Capsule.Dr PO 40 mg BEDTIME ALEJANDRO Administration Ondansetron HCl 4 mg 02/10/21 23:50 Ondansetron Hcl 4 Mg/2 Ml Vial IVPUSH Q8H PRN Nausea and Vomiting Prednisolone Acetate 1 drop 02/11/21 12:00 02/13/21 08:49 Prednisolone Acetate 1 % Oph Susp 5 Ml Drpbtl EYE-BOTH 1 drop 6XD ALEJANDRO Administration Sodium Bicarbonate 650 mg 02/11/21 16:40 02/13/21 08:47 Sodium Bicarbonate 650 Mg Tablet PO 650 mg BID ALEJANDRO Administration Sodium Chloride 3 ml 02/11/21 00:00 02/13/21 08:49 0.9 % Sodium Chloride Flush 3 Ml Syringe IVFLUSH 3 ml QSHIFT ALEJANDRO Administration Time Spent With Patient Time: Total time spent is greater than 50% in coordination of care (as documented) at patient's floor/unit and/or counseling patient: Time with patient: less than 15 minutes Progress Note: Quality Stroke Does the patient have a stroke diagnosis?: No Procedures Date of Service Date of Service: 02/13/21
[2021-02-13] MEDS: Omeprazole 40 MG CAPSULE.DR PO (20:23)
[2021-02-13] MEDS: Potassium Chloride Packet 20 MEQ PACKET 40 MEQ PO (20:23)
[2021-02-13] MEDS: ondansetron HCL 4 MG/2 ML VIAL IVPUSH (21:43)
[2021-02-14] VITALS (17 sets, daily range): BP systolic 106–155; BP diastolic 45–77; PULSE 82–106; RESP 12–27; TEMP 36.9–38.8; O2SAT 92–100
[2021-02-14 07:23] LABS: MANUAL DIFF FLAG NO
[2021-02-14 07:29] LABS: Basophils Percent Auto 0.1 % (0-2); Eosinophils Percent Auto 0.3 % (0-4); Hemoglobin 9.9 g/dl (14.0-18.0); Imm Gran Abs Auto 0.08 X10*3/uL (0.00-0.03); Imm Gran Pct Auto 0.9 % (0.0-0.4); Lymphocytes Absolute Auto 0.6 X10*3/uL (1.2-4.9); Lymphocytes Percent Auto 6.9 % (20-40); Mean Corpuscular HGB Conc 36.7 g/dl (31.0-36.0); Mean Corpuscular Hemoglobin 36.4 pg (27.0-33.0); Mean Corpuscular Volume 99.3 fL (80-98); Monocytes Absolute Auto 0.4 X10*3/uL (0.1-1.2); Monocytes Percent Auto 4.3 % (2-11); Neutrophils Percent Auto 87.5 % (45-73); Platelet Count 157 X10*3/uL (160-400); Red Blood Count 2.72 X10*6/uL (4.60-5.80); Red Cell Distribution Width 15.2 % (11.0-16.0); White Blood Count 9.1 X10*3/uL (4.8-10.8)
[2021-02-14 08:15] LABS: Anion Gap 11 (12-20); Blood Urea Nitrogen 11 mg/dL (9-16); Calcium 7.5 mg/dL (8.4-10.2); Carbon Dioxide 18 mmol/L (22-29); Chloride 113 mmol/L (96-108); Creatinine Clr Calc Pharmacy 61.4; Estimated Glomerular Filt Rate > 60; Glucose Fasting 95 mg/dL (60-99); Potassium 3.9 mmol/L (3.3-5.1); Sodium 138 mmol/L (135-145)
--- NOTE | 2021-02-14 09:22 | P.CDIC_ITS ---
CDI Concurrent Query Service Date: 02/14/21 Documentation Clarification: Please clarify if you are treating a proba ble/suspected/likely or confirmed: Clarity of documentation within the medical record: Sirs - treated, resolved, poa Sepsis Please specify if known SIRS, see progress note from 02/13 Provider Response: Other Other Diagnosis: SIRS, see progress note from 02/13 PLEASE DO NOT DELETE/MODIFY EXISTING CONTENT Additional information is needed in order to code to the highest accuracy and appropriate Severity of Illness (SOI). Please clarify the information noted below in your progress notes and discharge summary. Risk Factors/Clinical Indicators/Treatments Progress note 02/13 - Assessment/plan: While in ED patient developed fever, hypotension and is now admitted for Sepsis as well as evaluation of syncope. SIRS, on admission. CDS: Mylene Lipscomb CCS, CDIS Contact Number: [phone] Please Review the information above and exercise your independent professional judgment in responding to the query. If you concur, pleas document in the PROGRESS NOTES and DISCHARGE SUMMARY. If you do not agree with the query, please document in the query above. THIS QUERY IS PART OF THE PERMANENT MEDICAL RECORD
[2021-02-14] MEDS: Amiodarone HCL 200 MG TABLET 100 MG PO (09:26)
[2021-02-14] MEDS: Metoprolol Succinate ER 50 MG TAB.ER.24H PO (09:27)
[2021-02-14] MEDS: 0.9 % Sodium Chloride Flush 3 ML SYRINGE IVFLUSH ×2 (09:28→18:54)
[2021-02-14] MEDS: Moxifloxacin HCl 0.5 % Oph Sol 3 ML DRPBTL 1 DROP EYE-RIGHT ×3 (09:30→21:54)
--- NOTE | 2021-02-14 10:39 | PM.HEMONCCN ---
Subjective - Subjective Chief complaint: S/p fall, anemia Patient: known to practice within the last 3 years Consult date: 02/14/21 Requesting Physician: Dr. James Primary Care Provider: Unknown Physician Medical Summary: DIAGNOSIS: CML. B12 DEFICIENCY. CURRENT THERAPY: 1. Gleevec STARTED 02/21/2009. INCREASED TO 600 MG MAY 2009. 2. HYDREA for 3 days in January of 2009. 3. BCR-ABL gene transcript from February, October and July was 0.00. HPI - Consult Narrative Reason for consult: Anemia Narrative: Hugo Ceballos is a 85 year old male admitted on 02/10/2021 after being found on the floor at his home for several hours. He underwent right eye surgery in [place] last week and had a postoperative visit last Friday. On Friday he appears to have lost consciousness in the bathroom at night and was found Friday afternoon by his family members. He does not recall what happened and does not know if he had any symptoms of dizziness, chest pain, shortness of breath or seizure-like activity. Workup in the ED revealed normal WBC count, hemoglobin of 8.5 gram/dL and electrolyte abnormalities along with mild renal insufficiency. CT scans of spine, head and CT pelvis were negative for bleeding. He was seen by Gastroenterology, he is scheduled to have an EGD today. Review of Systems - Constitutional Reports as per HPI, Reports no additional constitutional complaints - Respiratory Reports no additional respiratory complaints - Gastrointestinal Reports no additional gastrointestinal complaints - Neurologic Denies syncope [facility] Medical History: Medical History (Last Reviewed 02/13/21 @ 08:47 by Beatriz Watkins, PT) Aortic stenosis Atrial fibrillation Benign prostatic hyperplasia Coronary artery disease GERD (gastroesophageal reflux disease) Glaucoma History of heart attack Hypercholesterolemia Hypertension Leg pain Moderate aortic stenosis Obstructive sleep apnea Sleep apnea Status post placement of implantable loop recorder Vitamin B12 deficiency Family History: Family History (Last Reviewed 09/28/20 @ 08:30 by Apolonia Sánchez) Father No problems noted. Mother No problems noted. Brother Leukemia AML (acute myeloblastic leukemia) Son In good health Daughter In good health Surgical History: Surgical History (Last Reviewed 02/13/21 @ 08:47 by Beatriz Waktins, PT) H/O rectal polypectomy History of cataract surgery History of cholecystectomy History of esophagogastroduodenoscopy (EGD) History of eye surgery History of tonsillectomy Hx of colonoscopy Status post right knee replacement Social History: Social History (Last Reviewed 09/28/20 @ 08:31 by Apolonia Sánchez) Living Situation History: Household Members: None Housing: Apartment Do you presently have visiting nurse or other home services: No Alcohol History: Alcohol intake: current Alcohol History Details: Alcohol intake frequency: holiday/special occasion Tobacco History: Patient Tobacco Use Status: Former Tobacco user Tobacco use type: Cigarette e-Cigarette/Vaping Use: Never Used Second Hand Smoke Exposure: No Advance Directives: Advance Directives Date on File: 02/11/21 Occupation Assessmet: service: Yes Current occupational status: retired Current occupational exposures/hazards: No Home Medications and Allergies Current Medications: Current Medications Generic Name Dose Route Start Last Admin Trade Name Freq PRN Reason Stop Dose Admin Acetaminophen 650 mg 02/10/21 23:50 02/13/21 20:23 Acetaminophen 325 Mg Tablet PO 650 mg Q6H PRN Administration Pain, Mild (Pain Scale 1-3) Amiodarone HCl 100 mg 02/11/21 09:00 02/14/21 09:26 Amiodarone Hcl 200 Mg Tablet PO 100 mg DAILY ALEJANDRO Administration Docusate Sodium 100 mg 02/10/21 23:50 Docusate Sodium 100 Mg Capsule PO DAILY PRN Constipation Folic Acid 1 mg 02/11/21 09:00 02/14/21 09:30 Folic Acid 1 Mg Tablet PO Not Given DAILY ALEJANDRO Loperamide HCl 2 mg 02/12/21 13:38 Loperamide Hcl 2 Mg Capsule PO Q6H PRN Diarrhea Metoprolol Succinate 50 mg 02/11/21 09:00 02/14/21 09:27 Metoprolol Succinate Er 50 Mg Tab.Er.24h PO 50 mg DAILY ALEJANDRO Administration Protocol Moxifloxacin HCl 1 drop 02/11/21 13:00 02/14/21 09:30 Moxifloxacin Hcl 0.5 % Oph Rosa Maria 3 Ml Drpbtl EYE-RIGHT 1 drop QID ALEJANDRO Administration Patient Own 6 each 02/12/21 21:00 02/13/21 20:24 Medication (Imatinib PO 6 each 100 Mg Tablet) DAILY@2100 ALEJANDRO Administration Omeprazole 40 mg 02/10/21 23:50 02/13/21 20:23 Omeprazole 40 Mg Capsule.Dr PO 40 mg BEDTIME ALEJANDRO Administration Ondansetron HCl 4 mg 02/10/21 23:50 02/13/21 21:43 Ondansetron Hcl 4 Mg/2 Ml Vial IVPUSH 4 mg Q8H PRN Administration Nausea and Vomiting Potassium Chloride 40 meq 02/13/21 21:00 02/14/21 09:30 Potassium Chloride Packet 20 Meq Packet PO Not Given BID [facility] Prednisolone Acetate 1 drop 02/11/21 12:00 02/14/21 09:30 Prednisolone Acetate 1 % Oph Susp 5 Ml Drpbtl EYE-BOTH Not Given 6XD [facility] Sodium Bicarbonate 650 mg 02/11/21 16:40 02/13/21 20:23 Sodium Bicarbonate 650 Mg Tablet PO 650 mg BID [facility] Administration Sodium Chloride 3 ml 02/11/21 00:00 02/14/21 09:28 0.9 % Sodium Chloride Flush 3 Ml Syringe IVFLUSH 3 ml QSHIFT [facility] Administration Home Medications Medication Instructions Recorded Confirmed Type amiodarone 100 mg tablet 100 mg PO DAILY 06/27/20 02/10/21 History aspirin 81 mg tablet 81 mg PO DAILY 06/27/20 02/10/21 History brimonidine 0.025 % eye drops 1 drp OPHTHALMIC (EYE) TID 06/27/20 02/12/21 History ascorbic acid (vitamin C) 1,500 mg 1,000 tab PO .QD tab 07/19/20 02/10/21 History tablet omeprazole 20 mg capsule,delayed 20 mg PO BID cap 11/07/20 02/12/21 History release ferrous sulfate 325 mg (65 mg 325 mg PO DAILY 12/26/20 02/10/21 History iron) tablet folic acid 400 mcg tablet 0.4 mg PO DAILY 12/26/20 02/10/21 History moxifloxacin 0.5 % eye drops 1 drp OPHTHALMIC-RIGHT QID 02/10/21 02/11/21 History pilocarpine HCl 2 % eye drops 1 drp OPHTHALMIC (EYE) QID 02/10/21 02/10/21 History prednisolone acetate 1 % eye 1 drp OPHTHALMIC (EYE) 6XD 02/10/21 02/11/21 History drops,suspension acetazolamide 500 mg 1 cap PO BID 02/12/21 02/12/21 History capsule,extended release imatinib 100 mg tablet 600 mg PO DAILY@2100 02/12/21 02/12/21 History metoprolol succinate 25 mg 25 mg PO DAILY 02/12/21 02/12/21 History tablet,extended release 24 hr timolol 0.5 % eye drops 1 drp OPHTHALMIC (EYE) BID 02/12/21 02/12/21 History Allergies Allergy/AdvReac Type Severity Reaction Status Date / Time No Known Allergies Allergy Verified 12/26/20 16:31 [No Known Allergies*] Physical Exam Vital signs: Vital Signs Temp 100.0 F 02/14/21 07:29 Pulse 100 02/14/21 10:14 Resp 18 02/14/21 07:29 BP 142/68 H 02/14/21 10:14 Pulse Ox 98 02/14/21 07:29 Intake & Output 02/13/21 02/14/21 02/14/21 18:59 06:59 18:59 Intake Total 0 / 600 600 / 600 Output Total 300 / 1200 900 / 1200 Balance -300 / -600 -300 / -600 Urine Output (Average ml/kg/hr) 0.31 0.92 Intake: Intake, Oral Amount 0 / 600 600 / 600 Output: Output, Urine Amount 300 / 1200 900 / 1200 Other: NPO Yes Yes Breakfast % Eaten 0% Lunch % Eaten 0% Number of Incontinent Voids 1 Number of Bowel Movements 2 Urine Urinal Urine Color Yellow Weight 81.2 kg - Constitutional Present: mild distress - Routine HEENT Exam Head: Present: normal inspection Eye: Present: conjunctivae pale - Routine Neck Exam Present: supple. Absent: lymphadenopathy - Routine Respiratory Exam Present: CTAB. Absent: accessory muscle use - Routine Cardiovascular Exam Cardiovascular: Present: RRR, S1, S2 - Routine Abdominal Exam Present: soft. Absent: mass, organomegaly - Routine Exam Perineum Description: Erythema, Inflammation - Routine Extremities Exam Absent: calf tenderness, pedal edema - Routine Skin Exam Present: warm, ecchymosis - Routine Neurological Exam Present: alert, oriented X3. Absent: motor deficit - Routine Psychiatric Exam Present: normal affect Hem/Onc Consult Result - Labs CBC & Chem 7: 02/14/21 06:15 02/14/21 06:15 Labs: Short CBC 02/14/21 Range/Units 06:15 WBC 9.1 (4.8-10.8) X10*3/uL Hgb 9.9 L (14.0-18.0) g/dl Hct 27.0 L (42-52) % Plt Count 157 L (160-400) X10*3/uL BMP 02/14/21 06:15 Sodium 138 Potassium 3.9 Chloride 113 H Carbon Dioxide 18 L BUN 11 Creatinine 0.85 Calcium 7.5 L Assessment and Plan (1) Chronic myelogenous leukemia (CML), [id number] Status: Chronic Qualifiers: Leukemia Active/Remission status: in remission Qualified Code(s): C92.11 - Chronic myeloid leukemia, BCR/ABL-positive, in remission 1. This is a 85-year-old male with chronic myelogenous leukemia diagnosed in 2008. He has been on Gleevec 600 mg daily and has been in major molecular remission for several years. His baseline hemoglobin is around 10.5 gram/dL and it dropped to 7.2 gram/dL on 02/11/2021. He has received 2 units PRBC. He does not have any GI symptomatology but was noted to have 1 heme-positive stool. He is scheduled for EGD today. 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 He has normal vitamin B12, folic acid and TSH levels. He appears to have developed some pain and swelling in the perineum, his CT pelvis was negative on the . Agree with above evaluation. I do not think he has anemia is from progression of CML. He should continue with Gleevec. I thank you for this consultation.
--- NOTE | 2021-02-14 11:07 | PC.NURSE ---
Skin/wound assessment completed today. Patient has scabbed abrasions to bilateral lower extremities and to left forehead. Patient had right eye surgery and has a clear plastic covering over eye. No other skin issues noted at this time.
--- NOTE | 2021-02-14 11:22 | MHC.CM.PN ---
Per ROUNDS discussion, Patient is not yet medically cleared for dc. Acute Rehab is the goal for dc ([facility] is first choice; [facility] only bed offer thus far). Patient will need a f/u surgical appointment at [facility] on Friday02/16/21; there has been discussion about the possibility of Patient being dc from the hospital on 02/16/21, to go directly to f/u appointment via family transport, and to then directly go from the appointment to Acute Rehab. Per MD, he is looking into a possible f/u appointment with Eye [facility] in this area. CM will continue to follow.
--- NOTE | 2021-02-14 12:46 | HO.PM.IMPN ---
Subjective Subjective Date of Service: 02/14/21 Interval History: seen and examined this AM dizziness improved no pain in R eye complaints of perinum pain (since his fall) Review of Systems General - no fevers or chills Cardiovascular - no chest pain Respiratory - no shortness of breath or cough Abdominal- no abdominal pain, nausea, vomiting, diarrhea Physical Exam Vital Signs: Vital Signs: Last Vital Signs Temp 98.5 F 02/14/21 12:26 Pulse 93 02/14/21 12:26 Resp 18 02/14/21 12:26 BP 143/62 H 02/14/21 12:26 Pulse Ox 92 02/14/21 12:26 Body Mass Index 27.2 Const: Other: General - no acute distress, appears comfortable Eyes - no pain with R eye movement Cardiovascular - regular rate and rhythm, S1-S2 Lungs - normal respiratory effort, clear to auscultation bilaterally, no wheezing Abdomen - soft, nontender, no rebound or guarding Extremities - no edema bilaterally Neuro - awake and alert, no focal deficits Skin - erythema in the perineum region Objective Data Current Medications Generic Name Dose Route Start Last Admin Trade Name Freq PRN Reason Stop Dose Admin Acetaminophen 650 mg 02/10/21 23:50 02/13/21 20:23 Acetaminophen 325 Mg Tablet PO 650 mg Q6H PRN Administration Pain, Mild (Pain Scale 1-3) Amiodarone HCl 100 mg 02/11/21 09:00 02/14/21 09:26 Amiodarone Hcl 200 Mg Tablet PO 100 mg DAILY [facility] Administration Docusate Sodium 100 mg 02/10/21 23:50 Docusate Sodium 100 Mg Capsule PO DAILY PRN Constipation Folic Acid 1 mg 02/11/21 09:00 02/14/21 09:30 Folic Acid 1 Mg Tablet PO Not Given DAILY [facility] Loperamide HCl 2 mg 02/12/21 13:38 Loperamide Hcl 2 Mg Capsule PO Q6H PRN Diarrhea Metoprolol Succinate 50 mg 02/11/21 09:00 02/14/21 09:27 Metoprolol Succinate Er 50 Mg Tab.Er.24h PO 50 mg DAILY [facility] Administration Protocol Moxifloxacin HCl 1 drop 02/11/21 13:00 02/14/21 12:30 Moxifloxacin Hcl 0.5 % Oph Rosa Maria 3 Ml Drpbtl EYE-RIGHT Not Given QID [facility] Patient Own 6 each 02/12/21 21:00 02/13/21 20:24 Medication (Imatinib PO 6 each 100 Mg Tablet) DAILY@2100 ALEJANDRO Administration Omeprazole 40 mg 02/10/21 23:50 02/13/21 20:23 Omeprazole 40 Mg Capsule.Dr PO 40 mg BEDTIME ALEJANDRO Administration Ondansetron HCl 4 mg 02/10/21 23:50 02/13/21 21:43 Ondansetron Hcl 4 Mg/2 Ml Vial IVPUSH 4 mg Q8H PRN Administration Nausea and Vomiting Potassium Chloride 40 meq 02/13/21 21:00 02/14/21 09:30 Potassium Chloride Packet 20 Meq Packet PO Not Given BID ALEJANDRO Prednisolone Acetate 1 drop 02/11/21 12:00 02/14/21 11:26 Prednisolone Acetate 1 % Oph Susp 5 Ml Drpbtl EYE-BOTH Not Given 6XD [facility] Sodium Bicarbonate 650 mg 02/11/21 16:40 02/14/21 11:27 Sodium Bicarbonate 650 Mg Tablet PO Not Given BID [facility] Sodium Chloride 3 ml 02/11/21 00:00 02/14/21 09:28 0.9 % Sodium Chloride Flush 3 Ml Syringe IVFLUSH 3 ml QSHIFT ALEJANDRO Administration Labs CBC & Chem 7: 02/14/21 06:15 02/14/21 06:15 Labs: Laboratory Results - last 24 hr 02/14/21 02/14/21 06:15 06:15 MCV 99.3 H MCH 36.4 H MCHC 36.7 H RDW 15.2 Plt Count 157 L MPV 10.0 Immature Gran % (Auto) 0.9 H Neut % (Auto) 87.5 H Lymph % (Auto) 6.9 L [place] % (Auto) 4.3 Eos % (Auto) 0.3 Baso % (Auto) 0.1 Lymph # (Auto) 0.6 L [place] # (Auto) 0.4 Eos # (Auto) 0.0 Baso # (Auto) 0.0 Abs Immat Gran (auto) 0.08 H Absolute Neuts (auto) 8.0 Absolute Nucleated RBC 0.000 Nucleated RBC % (auto) 0.0 Anion Gap 11 L Estim Creat Clear Calc 61.4 Estimated GFR > 60 Fasting Glucose 95 Calcium 7.5 L Microbiology Microbiology Results: Microbiology 02/11/21 16:37 Stool Culture - Final Stool Assessment and Plan (1) NSTEMI (non-ST elevated myocardial infarction): Status: Acute Assessment and Plan: This is an 85-year-old male with past medical history of afib not on AC, CML, moderat , previous CT, HTN, HLD, BPH, MARIBEL, recent eye surgery for glaucoma who presents to the hospital after fall and syncope.? While in the ED patient developed fever, hypotension and is now admitted for sepsis as well as evaluation of syncope 1. NSTEMI suspected type 2 from significant anemia, fall / rhabdo heparin gtt deferrred (see reasoning in cardiology notes) Echo done, no RWMA identified 2. Acute on [suspected chronic] anemia, macrocytic 2a. CLL - continue baseline meds h/h stable EGD today Heme/onc consult appreciated 3. syncope monitor orthostatics negative 4. SIRS on admission resolved no evidence of bacterial infection 5. Diarrhea C. diff negative and cultures wnl imodium PRN 6. Metabolic acidosis, hypoK, hypoMg, DELMA all improving multifactorial from diarrhea, diamox use, dehydration 7. Recent trabeculectomy at [facility] d/w Dr. Cook @ [phone] -- patient was to see him for post-op; Dr. Cook recommends the following: if patient d/c next 1-2 days, should follow up with him Friday/Friday. If he is to stay in the hospital, would need local ophthalmology follow up sooner. continue pred forte / moxifloxacin (this was confirmed by our pharmacy with Dr. Cook) 8. elevated liver enzymes down trending 9. rhabdomyolysis improving with IVF 10. thrombocytopenia -follow cbc 11. history of AFib -not on any anticoagulation, possibly due to chronic anemia. takes baby asa -continue amiodarone and metoprolol 12. Perineal pain likely from fall CT pelvis negative h/h stable DNR/DNI DVT pptx, mechanical Quality Stroke Does the patient have a stroke diagnosis?: No VTE Prior VTE?: No VTE Risk Level:: Medical - moderate - high VTE Device Contraindication: N/A - Device Ordered VTE Drug Contraindication: Treatment Not Indicated
--- NOTE | 2021-02-14 12:51 | HO.ANESPROP2 ---
[facility] Active Problems Active Problems: All Active Problems (Updated 02/14/21 @ 11:32 by Yamilet Kimball MD) Preoperative cardiovascular examination (Acute) Non-rheumatic aortic stenosis (Acute) Atherosclerotic cardiovascular disease (Acute) NSTEMI (non-ST elevated myocardial infarction) (Acute) Macrocytic anemia (Acute) Sepsis (Acute) Fall (Acute) Syncope (Acute) Elevated troponin (Acute) DELMA (acute kidney injury) (Acute) Rhabdomyolysis (Acute) Spinal stenosis of lumbar region at multiple levels (Acute) Chronic myelogenous leukemia (CML), [id number] (Chronic) Medicare annual wellness visit, initial (Acute) Sciatic nerve pain (Acute) Low back pain (Acute) Atrial fibrillation (Acute) Hypertension (Acute) Obstructive sleep apnea (Acute) Hypercholesterolemia (Acute) GERD (gastroesophageal reflux disease) (Acute) Coronary artery disease (Acute) Past Medical History Medical History Aortic stenosis Atrial fibrillation Benign prostatic hyperplasia Coronary artery disease GERD (gastroesophageal reflux disease) Glaucoma History of heart attack Hypercholesterolemia Hypertension Leg pain Moderate aortic stenosis Obstructive sleep apnea Sleep apnea Status post placement of implantable loop recorder Vitamin B12 deficiency Family History Family History Father No problems noted. Mother No problems noted. Brother Leukemia AML (acute myeloblastic leukemia) Son In good health Daughter In good health Surgical History Surgical History H/O rectal polypectomy History of cataract surgery History of cholecystectomy History of esophagogastroduodenoscopy (EGD) History of eye surgery History of tonsillectomy Hx of colonoscopy Status post right knee replacement History of Problems with Anesthesia: No Social History Social History Household Members: None Housing: Apartment Do you presently have visiting nurse or other home services: No Alcohol intake: current Alcohol intake frequency: does not drink Patient Tobacco Use Status: Former Tobacco user Tobacco use type: Cigarette e-Cigarette/Vaping Use: Never Used Second Hand Smoke Exposure: No Advance Directives Date on File: 02/11/21 service: Yes Current occupational status: retired Current occupational exposures/hazards: No Meds Allergies Allergy/AdvReac Type Severity Reaction Status Date / Time No Known Allergies Allergy Verified 12/26/20 16:31 [No Known Allergies*] Active Medications: Current Medications Generic Name Dose Route Start Last Admin Trade Name Freq PRN Reason Stop Dose Admin Acetaminophen 650 mg 02/10/21 23:50 02/13/21 20:23 Acetaminophen 325 Mg Tablet PO 650 mg Q6H PRN Administration Pain, Mild (Pain Scale 1-3) Amiodarone HCl 100 mg 02/11/21 09:00 02/14/21 09:26 Amiodarone Hcl 200 Mg Tablet PO 100 mg DAILY [facility] Administration Docusate Sodium 100 mg 02/10/21 23:50 Docusate Sodium 100 Mg Capsule PO DAILY PRN Constipation Folic Acid 1 mg 02/11/21 09:00 02/14/21 09:30 Folic Acid 1 Mg Tablet PO Not Given DAILY [facility] Loperamide HCl 2 mg 02/12/21 13:38 Loperamide Hcl 2 Mg Capsule PO Q6H PRN Diarrhea Meclizine HCl 25 mg 02/14/21 21:00 Meclizine Hcl 25 Mg Tablet PO BID [facility] Metoprolol Succinate 50 mg 02/11/21 09:00 02/14/21 09:27 Metoprolol Succinate Er 50 Mg Tab.Er.24h PO 50 mg DAILY [facility] Administration Protocol Moxifloxacin HCl 1 drop 02/11/21 13:00 02/14/21 12:30 Moxifloxacin Hcl 0.5 % Oph Rosa Maria 3 Ml Drpbtl EYE-RIGHT Not Given QID [facility] Patient Own 6 each 02/12/21 21:00 02/13/21 20:24 Medication (Imatinib PO 6 each 100 Mg Tablet) DAILY@2100 [facility] Administration Omeprazole 40 mg 02/10/21 23:50 02/13/21 20:23 Omeprazole 40 Mg Capsule.Dr PO 40 mg BEDTIME [facility] Administration Ondansetron HCl 4 mg 02/10/21 23:50 02/13/21 21:43 Ondansetron Hcl 4 Mg/2 Ml Vial IVPUSH 4 mg Q8H PRN Administration Nausea and Vomiting Potassium Chloride 40 meq 02/13/21 21:00 02/14/21 09:30 Potassium Chloride Packet 20 Meq Packet PO Not Given BID [facility] Prednisolone Acetate 1 drop 02/11/21 12:00 02/14/21 11:26 Prednisolone Acetate 1 % Oph Susp 5 Ml Drpbtl EYE-BOTH Not Given 6XD [facility] Sodium Bicarbonate 650 mg 02/11/21 16:40 02/14/21 11:27 Sodium Bicarbonate 650 Mg Tablet PO Not Given BID [facility] Sodium Chloride 3 ml 02/11/21 00:00 02/14/21 09:28 0.9 % Sodium Chloride Flush 3 Ml Syringe IVFLUSH 3 ml QSHIFT [facility] Administration Home Medications Medication Instructions Recorded Confirmed Last Taken Type amiodarone 100 mg tablet 100 mg PO DAILY 06/27/20 02/10/21 02/10/21 20:00 History aspirin 81 mg tablet 81 mg PO DAILY 06/27/20 02/10/21 08/09/20 History brimonidine 0.025 % eye drops 1 drp OPHTHALMIC (EYE) TID 06/27/20 02/12/21 02/10/21 22:00 History ascorbic acid (vitamin C) 1,500 mg 1,000 tab PO .QD tab 07/19/20 02/10/21 Unknown History tablet omeprazole 20 mg capsule,delayed 20 mg PO BID cap 11/07/20 02/12/21 Unknown History release ferrous sulfate 325 mg (65 mg 325 mg PO DAILY 12/26/20 02/10/21 Unknown History iron) tablet folic acid 400 mcg tablet 0.4 mg PO DAILY 12/26/20 02/10/21 Unknown History moxifloxacin 0.5 % eye drops 1 drp OPHTHALMIC-RIGHT QID 02/10/21 02/11/21 02/10/21 22:00 History pilocarpine HCl 2 % eye drops 1 drp OPHTHALMIC (EYE) QID 02/10/21 02/10/21 02/10/21 22:00 History prednisolone acetate 1 % eye 1 drp OPHTHALMIC (EYE) 6XD 02/10/21 02/11/21 02/10/21 22:00 History drops,suspension acetazolamide 500 mg 1 cap PO BID 02/12/21 02/12/21 Unknown History capsule,extended release imatinib 100 mg tablet 600 mg PO DAILY@2100 02/12/21 02/12/21 Unknown History metoprolol succinate 25 mg 25 mg PO DAILY 02/12/21 02/12/21 Unknown History tablet,extended release 24 hr timolol 0.5 % eye drops 1 drp OPHTHALMIC (EYE) BID 02/12/21 02/12/21 Unknown History Exam Exam Date and Time: February 14, 2021 1251 Height,Weight and Vital Signs: Height 5 ft 8 in Weight 81.2 kg Last Vital Signs Temp 98.5 F 02/14/21 12:26 Pulse 93 02/14/21 12:26 Resp 18 02/14/21 12:26 BP 143/62 H 02/14/21 12:26 Pulse Ox 92 02/14/21 12:26 Pertinent Lab Results Pertinent Lab Results: Laboratory Tests 02/10/21 02/10/21 02/10/21 18:55 18:55 18:55 WBC 8.2 RBC 2.36 L Hgb 8.5 L D Hct 23.2 L D MCV 98.3 H MCH 36.0 H MCHC 36.6 H RDW 14.6 Plt Count 137 L MPV 10.3 Immature Gran % (Auto) Cancelled Neut % (Auto) Cancelled Lymph % (Auto) Cancelled [place] % (Auto) Cancelled Eos % (Auto) Cancelled Baso % (Auto) Cancelled Lymph # (Auto) Cancelled [place] # (Auto) Cancelled Eos # (Auto) Cancelled Baso # (Auto) Cancelled Abs Immat Gran (auto) Cancelled Absolute Neuts (auto) Cancelled Absolute Nucleated RBC 0.000 Nucleated RBC % (auto) 0.0 Neutrophils % (Manual) 53 Band Neutrophils % 29 H Lymphocytes % (Manual) 12 L Monocytes % (Manual) 4 Metamyelocytes % 2 Abs Neuts (Manual) 6.7 Lymphocytes # (Manual) 1.0 Monocytes # (Manual) 0.3 Metamyelocytes # 0.2 Platelet Estimate SLIGHTLY DECREASED Plt Morphology Comment NORMAL RBC Morphology NOTED Polychromasia 2+ (3-5) Macrocytosis 1+ (5-14) Acanthocytes (Spur) PT 12.2 INR 1.1 APTT 29.1 Sodium Potassium Chloride Carbon Dioxide Anion Gap BUN Creatinine Estim Creat Clear Calc Estimated GFR Random Glucose Fasting Glucose Lactic Acid Calcium Magnesium Iron TIBC % Saturation Unsat Iron Binding Ferritin Total Bilirubin Direct Bilirubin AST ALT Alkaline Phosphatase Total Creatine Kinase 2837 H Troponin I High Sens Total Protein Albumin Vitamin B12 Folate Urine Color Urine Appearance Urine pH Ur Specific [place] Urine Protein Urine Glucose (UA) Urine Ketones Urine Blood Urine Nitrite Ur Leukocyte Esterase Urine RBC Urine WBC Ur Squamous Epith Cells Urine Bacteria Urine Mucus Stool Occult Blood Stool Leukocytes, Qual C. difficile Tox B Gene COVID-19 (ISMAEL) COVID-19 Clin Com Blood Type Antibody Screen Crossmatch 02/10/21 02/10/21 02/10/21 18:55 18:55 18:55 WBC RBC Hgb Hct MCV MCH MCHC RDW Plt Count MPV Immature Gran % (Auto) Neut % (Auto) Lymph % (Auto) [place] % (Auto) Eos % (Auto) Baso % (Auto) Lymph # (Auto) [place] # (Auto) Eos # (Auto) Baso # (Auto) Abs Immat Gran (auto) Absolute Neuts (auto) Absolute Nucleated RBC Nucleated RBC % (auto) Neutrophils % (Manual) Band Neutrophils % Lymphocytes % (Manual) Monocytes % (Manual) Metamyelocytes % Abs Neuts (Manual) Lymphocytes # (Manual) Monocytes # (Manual) Metamyelocytes # Platelet Estimate Plt Morphology Comment RBC Morphology Polychromasia Macrocytosis Acanthocytes (Spur) PT INR APTT Sodium 143 Potassium 2.7 L D Chloride 118 H Carbon Dioxide 13 L Anion Gap 15 BUN 22 H Creatinine 1.42 H Estim Creat Clear Calc 36.7 Estimated GFR 47 Random Glucose 105 Fasting Glucose Lactic Acid Calcium 8.3 L Magnesium Iron TIBC % Saturation Unsat Iron Binding Ferritin 409 H Total Bilirubin 1.2 H Direct Bilirubin AST 86 H ALT 41 H Alkaline Phosphatase 79 D Total Creatine Kinase Troponin I High Sens 6570.1 H* Total Protein 5.3 L Albumin 3.4 L Vitamin B12 Folate Urine Color YELLOW Urine Appearance HAZY Urine pH 6.0 Ur Specific [place] 1.020 Urine Protein 1+ H Urine Glucose (UA) NEG Urine Ketones 5 Urine Blood 3+ H Urine Nitrite NEG Ur Leukocyte Esterase NEG Urine RBC 10-14 H Urine WBC 1-4 Ur Squamous Epith Cells TRACE Urine Bacteria TRACE Urine Mucus TRACE Stool Occult Blood Stool Leukocytes, Qual C. difficile Tox B Gene COVID-19 (ISMAEL) COVID-19 [facility] [employer] Com Blood Type Antibody Screen Crossmatch 02/10/21 02/10/21 02/10/21 21:14 22:37 23:32 WBC RBC Hgb Hct MCV MCH MCHC RDW Plt Count MPV Immature Gran % (Auto) Neut % (Auto) Lymph % (Auto) [place] % (Auto) Eos % (Auto) Baso % (Auto) Lymph # (Auto) [place] # (Auto) Eos # (Auto) Baso # (Auto) Abs Immat Gran (auto) Absolute Neuts (auto) Absolute Nucleated RBC Nucleated RBC % (auto) Neutrophils % (Manual) Band Neutrophils % Lymphocytes % (Manual) Monocytes % (Manual) Metamyelocytes % Abs Neuts (Manual) Lymphocytes # (Manual) Monocytes # (Manual) Metamyelocytes # Platelet Estimate Plt Morphology Comment RBC Morphology Polychromasia Macrocytosis Acanthocytes (Spur) PT INR APTT Sodium Potassium Chloride Carbon Dioxide Anion Gap BUN Creatinine Estim Creat Clear Calc Estimated GFR Random Glucose Fasting Glucose Lactic Acid 1.4 Calcium Magnesium Iron TIBC % Saturation Unsat Iron Binding Ferritin Total Bilirubin Direct Bilirubin AST ALT Alkaline Phosphatase Total Creatine Kinase Troponin I High Sens 6604.9 H* Total Protein Albumin Vitamin B12 Folate Urine Color Urine Appearance Urine pH Ur Specific [place] Urine Protein Urine Glucose (UA) Urine Ketones Urine Blood Urine Nitrite Ur Leukocyte Esterase Urine RBC Urine WBC Ur Squamous Epith Cells Urine Bacteria Urine Mucus Stool Occult Blood Stool Leukocytes, Qual C. difficile Tox B Gene COVID-19 (ISMAEL) Negative COVID-19 Clin Com See Note Blood Type Antibody Screen Crossmatch 02/10/21 02/11/21 02/11/21 23:47 00:28 04:58 WBC 6.6 RBC 1.98 L Hgb 7.2 L Hct 19.5 L* MCV 98.5 H MCH 36.4 H MCHC 36.9 H RDW 14.6 Plt Count 113 L MPV 10.4 Immature Gran % (Auto) Cancelled Neut % (Auto) Cancelled Lymph % (Auto) Cancelled [place] % (Auto) Cancelled Eos % (Auto) Cancelled Baso % (Auto) Cancelled Lymph # (Auto) Cancelled [place] # (Auto) Cancelled Eos # (Auto) Cancelled Baso # (Auto) Cancelled Abs Immat Gran (auto) Cancelled Absolute Neuts (auto) Cancelled Absolute Nucleated RBC 0.000 Nucleated RBC % (auto) 0.0 Neutrophils % (Manual) 84 H Band Neutrophils % 10 H Lymphocytes % (Manual) 6 L Monocytes % (Manual) Metamyelocytes % Abs Neuts (Manual) 6.2 Lymphocytes # (Manual) 0.4 L Monocytes # (Manual) Metamyelocytes # Platelet Estimate DECREASED Plt Morphology Comment NORMAL RBC Morphology NOTED Polychromasia 1+ (0-2) Macrocytosis 1+ (5-14) Acanthocytes (Spur) 1+ (0-2) PT INR APTT Sodium Potassium Chloride Carbon Dioxide Anion Gap BUN Creatinine Estim Creat Clear Calc Estimated GFR Random Glucose Fasting Glucose Lactic Acid Calcium Magnesium Iron TIBC % Saturation Unsat Iron Binding Ferritin Total Bilirubin Direct Bilirubin AST ALT Alkaline Phosphatase Total Creatine Kinase Troponin I High Sens Total Protein Albumin Vitamin B12 778 Folate 16.1 Urine Color Urine Appearance Urine pH Ur Specific [place] Urine Protein Urine Glucose (UA) Urine Ketones Urine Blood Urine Nitrite Ur Leukocyte Esterase Urine RBC Urine WBC Ur Squamous Epith Cells Urine Bacteria Urine Mucus Stool Occult Blood NEGATIVE Stool Leukocytes, Qual C. difficile Tox B Gene COVID-19 (ISMAEL) COVID-19 Clin Com Blood Type Antibody Screen Crossmatch 02/11/21 02/11/21 02/11/21 04:58 04:58 08:12 WBC RBC Hgb Hct MCV MCH MCHC RDW Plt Count MPV Immature Gran % (Auto) Neut % (Auto) Lymph % (Auto) [place] % (Auto) Eos % (Auto) Baso % (Auto) Lymph # (Auto) [place] # (Auto) Eos # (Auto) Baso # (Auto) Abs Immat Gran (auto) Absolute Neuts (auto) Absolute Nucleated RBC Nucleated RBC % (auto) Neutrophils % (Manual) Band Neutrophils % Lymphocytes % (Manual) Monocytes % (Manual) Metamyelocytes % Abs Neuts (Manual) Lymphocytes # (Manual) Monocytes # (Manual) Metamyelocytes # Platelet Estimate Plt Morphology Comment RBC Morphology Polychromasia Macrocytosis Acanthocytes (Spur) PT INR APTT Sodium 141 Potassium 2.3 L* Chloride 120 H Carbon Dioxide 14 L Anion Gap 9 L BUN 17 H Creatinine 0.97 Estim Creat Clear Calc 53.8 Estimated GFR > 60 Random Glucose 115 Fasting Glucose Lactic Acid Calcium 7.0 L D Magnesium 1.4 L* Iron TIBC % Saturation Unsat Iron Binding Ferritin Total Bilirubin Direct Bilirubin AST ALT Alkaline Phosphatase Total Creatine Kinase Troponin I High Sens 4330.8 H* Total Protein Albumin Vitamin B12 Folate Urine Color Urine Appearance Urine pH Ur Specific [place] Urine Protein Urine Glucose (UA) Urine Ketones Urine Blood Urine Nitrite Ur Leukocyte Esterase Urine RBC Urine WBC Ur Squamous Epith Cells Urine Bacteria Urine Mucus Stool Occult Blood Stool Leukocytes, Qual C. difficile Tox B Gene COVID-19 (ISMAEL) COVID-19 Clin Com Blood Type O Positive Antibody Screen NEGATIVE Crossmatch See Detail 02/11/21 02/11/21 02/11/21 12:56 15:54 16:37 WBC RBC Hgb Hct MCV MCH MCHC RDW Plt Count MPV Immature Gran % (Auto) Neut % (Auto) Lymph % (Auto) [place] % (Auto) Eos % (Auto) Baso % (Auto) Lymph # (Auto) [place] # (Auto) Eos # (Auto) Baso # (Auto) Abs Immat Gran (auto) Absolute Neuts (auto) Absolute Nucleated RBC Nucleated RBC % (auto) Neutrophils % (Manual) Band Neutrophils % Lymphocytes % (Manual) Monocytes % (Manual) Metamyelocytes % Abs Neuts (Manual) Lymphocytes # (Manual) Monocytes # (Manual) Metamyelocytes # Platelet Estimate Plt Morphology Comment RBC Morphology Polychromasia Macrocytosis Acanthocytes (Spur) PT INR APTT Sodium 141 Potassium 3.3 D Chloride 121 H Carbon Dioxide 13 L Anion Gap 10 L BUN 16 Creatinine 0.97 Estim Creat Clear Calc 53.8 Estimated GFR > 60 Random Glucose 113 Fasting Glucose Lactic Acid Calcium 7.3 L Magnesium 1.8 Iron TIBC % Saturation Unsat Iron Binding Ferritin Total Bilirubin Direct Bilirubin AST ALT Alkaline Phosphatase Total Creatine Kinase Troponin I High Sens Total Protein Albumin Vitamin B12 Folate Urine Color Urine Appearance Urine pH Ur Specific [place] Urine Protein Urine Glucose (UA) Urine Ketones Urine Blood Urine Nitrite Ur Leukocyte Esterase Urine RBC Urine WBC Ur Squamous Epith Cells Urine Bacteria Urine Mucus Stool Occult Blood Stool Leukocytes, Qual NEGATIVE C. difficile Tox B Gene COVID-19 (ISMAEL) COVID-19 Clin Com Blood Type Antibody Screen Crossmatch 02/11/21 02/11/21 02/12/21 16:37 16:37 04:27 WBC 7.7 RBC 2.60 L D Hgb 9.1 L D Hct 24.8 L D MCV 95.4 MCH 35.0 H MCHC 36.7 H RDW 14.3 Plt Count 126 L MPV 10.3 Immature Gran % (Auto) Neut % (Auto) Lymph % (Auto) [place] % (Auto) Eos % (Auto) Baso % (Auto) Lymph # (Auto) [place] # (Auto) Eos # (Auto) Baso # (Auto) Abs Immat Gran (auto) Absolute Neuts (auto) Absolute Nucleated RBC 0.000 Nucleated RBC % (auto) 0.0 Neutrophils % (Manual) Band Neutrophils % Lymphocytes % (Manual) Monocytes % (Manual) Metamyelocytes % Abs Neuts (Manual) Lymphocytes # (Manual) Monocytes # (Manual) Metamyelocytes # Platelet Estimate Plt Morphology Comment RBC Morphology Polychromasia Macrocytosis Acanthocytes (Spur) PT INR APTT Sodium Potassium Chloride Carbon Dioxide Anion Gap BUN Creatinine Estim Creat Clear Calc Estimated GFR Random Glucose Fasting Glucose Lactic Acid Calcium Magnesium Iron TIBC % Saturation Unsat Iron Binding Ferritin Total Bilirubin Direct Bilirubin AST ALT Alkaline Phosphatase Total Creatine Kinase Troponin I High Sens Total Protein Albumin Vitamin B12 Folate Urine Color Urine Appearance Urine pH Ur Specific [place] Urine Protein Urine Glucose (UA) Urine Ketones Urine Blood Urine Nitrite Ur Leukocyte Esterase Urine RBC Urine WBC Ur Squamous Epith Cells Urine Bacteria Urine Mucus Stool Occult Blood POSITIVE Stool Leukocytes, Qual C. difficile Tox B Gene NEGATIVE COVID-19 (ISMAEL) COVID-19 Clin Com Blood Type Antibody Screen Crossmatch 02/12/21 02/12/21 02/13/21 04:27 04:27 07:25 WBC 6.7 RBC 2.65 L Hgb 9.3 L Hct 25.7 L MCV 97.0 MCH 35.1 H MCHC 36.2 H RDW 14.6 Plt Count 138 L MPV 10.0 Immature Gran % (Auto) Neut % (Auto) Lymph % (Auto) [place] % (Auto) Eos % (Auto) Baso % (Auto) Lymph # (Auto) [place] # (Auto) Eos # (Auto) Baso # (Auto) Abs Immat Gran (auto) Absolute Neuts (auto) Absolute Nucleated RBC 0.000 Nucleated RBC % (auto) 0.0 Neutrophils % (Manual) Band Neutrophils % Lymphocytes % (Manual) Monocytes % (Manual) Metamyelocytes % Abs Neuts (Manual) Lymphocytes # (Manual) Monocytes # (Manual) Metamyelocytes # Platelet Estimate Plt Morphology Comment RBC Morphology Polychromasia Macrocytosis Acanthocytes (Spur) PT INR APTT Sodium 139 Potassium 3.0 L Chloride 118 H Carbon Dioxide 13 L Anion Gap 11 L BUN 15 Creatinine 0.86 Estim Creat Clear Calc 60.7 Estimated GFR > 60 Random Glucose 107 Fasting Glucose Lactic Acid Calcium 7.1 L Magnesium 1.6 Iron TIBC % Saturation Unsat Iron Binding Ferritin Total Bilirubin 1.1 H Direct Bilirubin 0.6 H AST 52 H ALT 33 Alkaline Phosphatase 58 D Total Creatine Kinase 766 H D Troponin I High Sens Total Protein 4.2 L D Albumin 2.7 L D Vitamin B12 Folate Urine Color Urine Appearance Urine pH Ur Specific [place] Urine Protein Urine Glucose (UA) Urine Ketones Urine Blood Urine Nitrite Ur Leukocyte Esterase Urine RBC Urine WBC Ur Squamous Epith Cells Urine Bacteria Urine Mucus Stool Occult Blood Stool Leukocytes, Qual C. difficile Tox B Gene COVID-19 (ISMAEL) COVID-19 [facility] Com Blood Type Antibody Screen Crossmatch 02/13/21 02/13/21 02/14/21 07:25 10:18 06:15 WBC 9.1 RBC 2.72 L Hgb 9.9 L Hct 27.0 L MCV 99.3 H MCH 36.4 H MCHC 36.7 H RDW 15.2 Plt Count 157 L MPV 10.0 Immature Gran % (Auto) 0.9 H Neut % (Auto) 87.5 H Lymph % (Auto) 6.9 L [place] % (Auto) 4.3 Eos % (Auto) 0.3 Baso % (Auto) 0.1 Lymph # (Auto) 0.6 L [place] # (Auto) 0.4 Eos # (Auto) 0.0 Baso # (Auto) 0.0 Abs Immat Gran (auto) 0.08 H Absolute Neuts (auto) 8.0 Absolute Nucleated RBC 0.000 Nucleated RBC % (auto) 0.0 Neutrophils % (Manual) Band Neutrophils % Lymphocytes % (Manual) Monocytes % (Manual) Metamyelocytes % Abs Neuts (Manual) Lymphocytes # (Manual) Monocytes # (Manual) Metamyelocytes # Platelet Estimate Plt Morphology Comment RBC Morphology Polychromasia Macrocytosis Acanthocytes (Spur) PT INR APTT Sodium 139 Potassium 3.4 Chloride 117 H Carbon Dioxide 16 L Anion Gap 9 L BUN 11 Creatinine 0.83 Estim Creat Clear Calc 62.9 Estimated GFR > 60 Random Glucose 102 Fasting Glucose Lactic Acid Calcium 7.3 L Magnesium Iron 42 L TIBC 171 L % Saturation 25 Unsat Iron Binding 129 Ferritin Total Bilirubin 1.1 H Direct Bilirubin 0.4 AST 33 ALT 29 Alkaline Phosphatase 54 Total Creatine Kinase Troponin I High Sens Total Protein 4.1 L Albumin 2.5 L Vitamin B12 Folate Urine Color Urine Appearance Urine pH Ur Specific [place] Urine Protein Urine Glucose (UA) Urine Ketones Urine Blood Urine Nitrite Ur Leukocyte Esterase Urine RBC Urine WBC Ur Squamous Epith Cells Urine Bacteria Urine Mucus Stool Occult Blood Stool Leukocytes, Qual C. difficile Tox B Gene COVID-19 (ISMAEL) COVID-19 Clin Com Blood Type Antibody Screen Crossmatch 02/14/21 06:15 WBC RBC Hgb Hct MCV MCH MCHC RDW Plt Count MPV Immature Gran % (Auto) Neut % (Auto) Lymph % (Auto) [place] % (Auto) Eos % (Auto) Baso % (Auto) Lymph # (Auto) [place] # (Auto) Eos # (Auto) Baso # (Auto) Abs Immat Gran (auto) Absolute Neuts (auto) Absolute Nucleated RBC Nucleated RBC % (auto) Neutrophils % (Manual) Band Neutrophils % Lymphocytes % (Manual) Monocytes % (Manual) Metamyelocytes % Abs Neuts (Manual) Lymphocytes # (Manual) Monocytes # (Manual) Metamyelocytes # Platelet Estimate Plt Morphology Comment RBC Morphology Polychromasia Macrocytosis Acanthocytes (Spur) PT INR APTT Sodium 138 Potassium 3.9 Chloride 113 H Carbon Dioxide 18 L Anion Gap 11 L BUN 11 Creatinine 0.85 Estim Creat Clear Calc 61.4 Estimated GFR > 60 Random Glucose Fasting Glucose 95 Lactic Acid Calcium 7.5 L Magnesium Iron TIBC % Saturation Unsat Iron Binding Ferritin Total Bilirubin Direct Bilirubin AST ALT Alkaline Phosphatase Total Creatine Kinase Troponin I High Sens Total Protein Albumin Vitamin B12 Folate Urine Color Urine Appearance Urine pH Ur Specific [place] Urine Protein Urine Glucose (UA) Urine Ketones Urine Blood Urine Nitrite Ur Leukocyte Esterase Urine RBC Urine WBC Ur Squamous Epith Cells Urine Bacteria Urine Mucus Stool Occult Blood Stool Leukocytes, Qual C. difficile Tox B Gene COVID-19 (ISMAEL) COVID-19 Clin Com Blood Type Antibody Screen Crossmatch Airway Mallampati Class: II Heart: Irreg irreg rhythm Lungs: clear anteriorly Assessment and Plan Assessment Anesthesia Assessment: Anesthesia Plan Discussed and Chart Reviewed Final Anesthetic Review History of Problems with Anesthesia: No NPO: Yes ASA Class: III Final Preanesthetic Review: Meds/Allgs Chart Reviewed, Consent Obtained/Reviewed and Anes Risks/Benef Reviewed Patient Risk: Intermediate Procedure Risk: Intermediate Anesthetic Plan Anesthetic Plan: MAC: Disposition: Standard PACU
--- NOTE | 2021-02-14 14:03 | P.EN_ITS ---
Event Note Date of Service: 02/14/21 Event Note: GI-EGD-Full note dictated Findings: 1. Diffuse gastritis/gastropathy--antrum biopsied x 3. No ulcers, AVM's, nor bleeding 2. Hiatal hernia 3. Mild duodenitis Rec: PPI BID, Iron supplements, advance diet, follow Hgb. Hold aspirin intermediate if possible, otherwise hold for at least 1 week. I will hold off on a colonoscopy(he had one in 07/2020), but he may need consideration of that and a small bowel video capsule study in the future if the anemia remains problematic. Thanks
--- NOTE | 2021-02-14 14:08 | PM.OP ---
Brief Operative Note Date of Service: 02/14/21 Pre-op diagnosis: Anemia, Heme + stool Post-op diagnosis: other (Gastritis/Gastropathy, Hiatal hernia) Procedure: EGD with biopsy Surgeon: Darius Wheeler Anesthesia: MAC Was an Observer Helper used for this Procedure?: No Estimated blood loss (mL): 4.0 Pathology: other (A. Gastric antrum) Condition: stable Disposition: PACU
--- NOTE | 2021-02-14 14:39 | MHC.CM.PN ---
Patient has now been accepted at his first choice facility- [facility]. Plan is for Patient to go to [facility] on 02/16/21 ( is hoping for 11 AM appointment and making arrangements)via family transport (Per Son/Ramesh @ [phone], Patient's Brother/Brandin will transport Patient from [facility] to the appointment and then directly to [facility]).CM will continue to follow.
--- NOTE | 2021-02-14 14:41 | PC.NURSE ---
1000 c/o of pain in perinium. area red and firm. Seen by Dr James and Dr Kimball Ice pack given and repos for comfort
[2021-02-14] MEDS: Acetaminophen 325 MG TABLET 650 MG PO (15:50)
--- NOTE | 2021-02-14 16:01 | PC.NURSE ---
svivering, oral temp 101.9, . Dr steve notified , new orderes : blood cx, lactic, cxray, urine spacimen
[2021-02-14 16:41] LABS: Glucose Urine UA NEG (NEG); Leukocyte Esterase Urine NEG (NEG); Nitrite Urine NEG (NEG); Specific Gravity - Urine 1.025 (1.005-1.025); UACC Culture Trigger NO; Urine Blood 3+ (NEG); Urine Ketones 40 MG/DL (NEG); Urine Protein 1+ MG/DL (NEG-TRACE)
--- NOTE | 2021-02-14 16:41 | OP_ITS ---
SURGEON: Darius Wheeler MD INDICATIONS: The patient presents for evaluation of anemia and heme-positive stool. Full consent has been obtained from him for this, including risks of bleeding and perforation. PREOPERATIVE DIAGNOSIS: POSTOPERATIVE DIAGNOSIS: PROCEDURE PERFORMED: Esophagogastroduodenoscopy with biopsy. ESTIMATED BLOOD LOSS: COMPLICATIONS: ANESTHESIA: Monitored anesthesia care. ASSISTANTS: SPECIMENS: PREOPERATIVE DIAGNOSES: Heme-positive stool and anemia. POSTOPERATIVE DIAGNOSES: Heme-positive stool and anemia, diffuse gastritis and gastropathy, hiatal hernia. DESCRIPTION OF PROCEDURE: The patient was placed in the left lateral decubitus position. The Olympus video gastroscope was passed in the posterior oropharynx and upper esophagus under direct vision. The scope was passed slowly into the distal esophagus. The gastroesophageal junction appeared normal at 35 cm. There was no sign of any esophagitis nor ulceration. The scope entered into the stomach. There was a small hiatal hernia. The hiatal hernia mucosa appeared normal without ulceration or mass. The scope was advanced to pylorus and the duodenum was cannulated to the descending portion. The duodenum including the bulb did not show any sign of ulceration nor bleeding. There was some mild duodenitis. The scope was withdrawn back in the stomach. The gastric antrum and body had diffuse changes of some erythema, edema, and some small areas of probable intestinal metaplasia right near the pylorus. There was good peristalsis. The scope was retroflexed visualizing the proximal stomach carefully, which was negative for any sign of mass or ulceration, although did show the same mucosal changes of edema, erythema, and probable gastropathy. I did not visualize any sign of varices nor angiodysplasias. The scope was straightened. There was no blood in the stomach. The biopsies were obtained from the pre-pyloric antrum. The scope was withdrawn back in the esophagus. The esophageal mucosa appeared normal. The scope was withdrawn from the patient. He tolerated procedure well and was returned to the recovery area in stable condition. IMPRESSION: 1. Diffuse appearing gastritis and/or gastropathy, status post biopsies from the gastric antrum. 2. Hiatal hernia. 3. Mild duodenitis. PLAN: The results of the biopsy will be checked. He will have his diet advanced. He will continue his omeprazole twice a day. He should continue iron at least once a day as well. His blood count will be followed. He did just have a colonoscopy in July, so at this point, I would hold off on repeating that. Depending upon his clinical course in regard to the anemia, he may need further evaluation with a small bowel video capsule study and/or repeat colonoscopy. He has been on aspirin daily at home, but no other blood thinners as far as they know. If the aspirin can be held as long as possible that could be helpful in regard to preventing recurrent anemia. MD JOE Campuzano/CARL / [id number]
[2021-02-14 16:44] LABS: Appearance Urine CLEAR; Color Urine YELLOW
[2021-02-14 16:54] LABS: RBC Urine 50-75 /HPF (0); WBC Urine 0-2 /HPF (0-4)
[2021-02-14 16:55] LABS: Squamous Epithelial Cell Urine 1+ /LPF
[2021-02-14 17:10] LABS: Lactic Acid 1.8 mmol/L (0.5-2.0)
--- NOTE | 2021-02-14 17:15 | PM.EVENT ---
Event Note Date of Service: 02/14/21 Event Note: Receieved message from his RN that patient had a fever of 101.9 post EGD UA and CXR negative. Cultures drawn, lactate wnl. Will hold off on antibiotics. If he spikes recurrent temps, will need further work up.
[2021-02-14] MEDS: prednisoLONE Acetate 1 % Oph Susp 5 ML DRPBTL 1 DROP EYE-BOTH ×2 (18:53→21:53)
[2021-02-14] MEDS: Omeprazole 20 MG CAPSULE.DR PO ×2 (18:53→21:54)
[2021-02-14] MEDS: Ferrous Sulfate 324 MG TABLET.DR PO (19:01)
[2021-02-14] MEDS: Potassium Chloride Packet 20 MEQ PACKET 40 MEQ PO (21:54)
[2021-02-14] MEDS: Meclizine HCl 25 MG TABLET PO (21:54)
[2021-02-14] MEDS: Sodium Bicarbonate 650 MG TABLET PO (21:54)
[2021-02-15] VITALS (12 sets, daily range): BP systolic 100–149; BP diastolic 53–70; PULSE 86–102; RESP 18–20; TEMP 36.5–39.2; O2SAT 94–96
[2021-02-15] MEDS: 0.9 % Sodium Chloride Flush 3 ML SYRINGE IVFLUSH ×4 (00:04→23:43)
[2021-02-15] MEDS: prednisoLONE Acetate 1 % Oph Susp 5 ML DRPBTL 1 DROP EYE-BOTH ×6 (05:02→20:18)
[2021-02-15 07:00] LABS: MANUAL DIFF FLAG NO
[2021-02-15 07:16] LABS: Basophils Percent Auto 0.2 % (0-2); Eosinophils Percent Auto 0.2 % (0-4); Hematocrit 26.7 % (42-52); Hemoglobin 9.3 g/dl (14.0-18.0); Imm Gran Abs Auto 0.11 X10*3/uL (0.00-0.03); Imm Gran Pct Auto 1.3 % (0.0-0.4); Lymphocytes Absolute Auto 0.7 X10*3/uL (1.2-4.9); Lymphocytes Percent Auto 8.5 % (20-40); Mean Corpuscular HGB Conc 34.8 g/dl (31.0-36.0); Mean Corpuscular Hemoglobin 35.1 pg (27.0-33.0); Mean Corpuscular Volume 100.8 fL (80-98); Mean Platelet Volume 10.7 fL (9.4-12.4); Monocytes Absolute Auto 0.4 X10*3/uL (0.1-1.2); Neutrophils Absolute Auto 7.1 X10*3/uL (2.0-8.3); Neutrophils Percent Auto 84.8 % (45-73); Platelet Count 152 X10*3/uL (160-400); Red Blood Count 2.65 X10*6/uL (4.60-5.80); Red Cell Distribution Width 14.9 % (11.0-16.0); White Blood Count 8.4 X10*3/uL (4.8-10.8)
[2021-02-15 07:42] LABS: Anion Gap 15 (12-20); Blood Urea Nitrogen 13 mg/dL (9-16); Calcium 7.5 mg/dL (8.4-10.2); Carbon Dioxide 15 mmol/L (22-29); Chloride 110 mmol/L (96-108); Estimated Glomerular Filt Rate > 60; Glucose Fasting 80 mg/dL (60-99); Potassium 4.2 mmol/L (3.3-5.1); Sodium 136 mmol/L (135-145)
[2021-02-15] MEDS: Sodium Bicarbonate 650 MG TABLET PO ×2 (08:33→20:18)
[2021-02-15] MEDS: Amiodarone HCL 200 MG TABLET 100 MG PO (08:33)
[2021-02-15] MEDS: Potassium Chloride Packet 20 MEQ PACKET 40 MEQ PO (08:33)
[2021-02-15] MEDS: Folic Acid 1 MG TABLET PO (08:34)
[2021-02-15] MEDS: Omeprazole 20 MG CAPSULE.DR PO ×2 (08:34→20:18)
[2021-02-15] MEDS: Ferrous Sulfate 324 MG TABLET.DR PO (08:34)
[2021-02-15] MEDS: Metoprolol Succinate ER 50 MG TAB.ER.24H PO (08:34)
[2021-02-15] MEDS: Meclizine HCl 25 MG TABLET PO ×2 (08:34→20:18)
[2021-02-15] MEDS: Loperamide HCl 2 MG CAPSULE PO ×2 (08:34→17:36)
[2021-02-15] MEDS: Moxifloxacin HCl 0.5 % Oph Sol 3 ML DRPBTL 1 DROP EYE-RIGHT ×4 (08:35→20:18)
--- NOTE | 2021-02-15 09:18 | HO.POSTANES ---
Post Anesthesia Evaluation Post Anesthesia Evaluation Vital Signs: Vital Signs Temp Pulse Resp BP Pulse Ox 02/15/21 08:37 102 H 125/68 02/15/21 08:36 94 149/59 H 02/15/21 08:34 86 111/57 L 02/15/21 08:33 86 111/57 L 02/15/21 07:25 97.7 F 86 18 111/57 L 95 02/15/21 04:00 99.9 F 92 20 112/55 L 95 02/14/21 23:33 101.2 F H 106 H 18 155/74 H 98 Anesthesia: Monitored Mental Status: Awake Pain Control: Satisfactory Nausea/Vomiting: None Hydration: Adequate Anesthesia-Related Issues: No Anes. Related Issues
--- NOTE | 2021-02-15 09:46 | HO.PM.IMPN ---
Subjective Subjective Date of Service: 02/15/21 Interval History: seen and examined this AM reports feeling the same rpeorts he had 1 episode of nausea and diarrhea last night complaints of perineum pain Review of Systems General - no fevers or chills Cardiovascular - no chest pain Respiratory - no shortness of breath or cough Abdominal- no abdominal pain, nausea, vomiting, diarrhea Physical Exam Vital Signs: Vital Signs: Last Vital Signs Temp 97.7 F 02/15/21 07:25 Pulse 102 H 02/15/21 08:37 Resp 18 02/15/21 07:25 BP 125/68 02/15/21 08:37 Pulse Ox 95 02/15/21 07:25 Body Mass Index 27.2 Const: Other: General - no acute distress, appears comfortable Eyes - no pain with R eye movement Cardiovascular - regular rate and rhythm, S1-S2 Lungs - normal respiratory effort, clear to auscultation bilaterally, no wheezing Abdomen - soft, nontender, no rebound or guarding Extremities - no edema bilaterally Neuro - awake and alert, no focal deficits Skin - erythema in the perineum region, mildly tender and indurated but no fluctuance Objective Data Current Medications Generic Name Dose Route Start Last Admin Trade Name Freq PRN Reason Stop Dose Admin Acetaminophen 650 mg 02/10/21 23:50 02/14/21 15:50 Acetaminophen 325 Mg Tablet PO 650 mg Q6H PRN Administration Pain, Mild (Pain Scale 1-3) Amiodarone HCl 100 mg 02/11/21 09:00 02/15/21 08:33 Amiodarone Hcl 200 Mg Tablet PO 100 mg DAILY ALEJANDRO Administration Docusate Sodium 100 mg 02/10/21 23:50 Docusate Sodium 100 Mg Capsule PO DAILY PRN Constipation Ferrous Sulfate 324 mg 02/14/21 14:00 02/15/21 08:34 Ferrous Sulfate 324 Mg Tablet. PO 324 mg DAILY ALEJANDRO Administration Folic Acid 1 mg 02/11/21 09:00 02/15/21 08:34 Folic Acid 1 Mg Tablet PO 1 mg DAILY ALEJANDRO Administration Loperamide HCl 2 mg 02/12/21 13:38 02/15/21 08:34 Loperamide Hcl 2 Mg Capsule PO 2 mg Q6H PRN Administration Diarrhea Meclizine HCl 25 mg 02/14/21 21:00 02/15/21 08:34 Meclizine Hcl 25 Mg Tablet PO 25 mg BID ALEJANDRO Administration Metoprolol Succinate 50 mg 02/11/21 09:00 02/15/21 08:34 Metoprolol Succinate Er 50 Mg Tab.Er.24h PO 50 mg DAILY ALEJANDRO Administration Protocol Moxifloxacin HCl 1 drop 02/11/21 13:00 02/15/21 08:35 Moxifloxacin Hcl 0.5 % Oph Rosa Maria 3 Ml Drpbtl EYE-RIGHT 1 drop QID ALEJANDRO Administration Patient Own 6 each 02/12/21 21:00 02/14/21 21:53 Medication (Imatinib PO 6 each 100 Mg Tablet) DAILY@2100 ALEJANDRO Administration Omeprazole 20 mg 02/14/21 15:30 02/15/21 08:34 Omeprazole 20 Mg Capsule.Dr PO 20 mg BID ALEJANDRO Administration Ondansetron HCl 4 mg 02/10/21 23:50 02/13/21 21:43 Ondansetron Hcl 4 Mg/2 Ml Vial IVPUSH 4 mg Q8H PRN Administration Nausea and Vomiting Potassium Chloride 40 meq 02/13/21 21:00 02/15/21 08:33 Potassium Chloride Packet 20 Meq Packet PO 40 meq BID ALEJANDRO Administration Prednisolone Acetate 1 drop 02/11/21 12:00 02/15/21 08:36 Prednisolone Acetate 1 % Oph Susp 5 Ml Drpbtl EYE-BOTH 1 drop 6XD ALEJANDRO Administration Sodium Bicarbonate 650 mg 02/11/21 16:40 02/15/21 08:33 Sodium Bicarbonate 650 Mg Tablet PO 650 mg BID ALEJANDRO Administration Sodium Chloride 3 ml 02/11/21 00:00 02/15/21 08:35 0.9 % Sodium Chloride Flush 3 Ml Syringe IVFLUSH 3 ml QSHIFT ALEJANDRO Administration Labs CBC & Chem 7: 02/15/21 06:03 02/15/21 06:03 Labs: Laboratory Results - last 24 hr 02/14/21 02/14/21 02/15/21 16:12 16:32 06:03 MCV 100.8 H MCH 35.1 H MCHC 34.8 RDW 14.9 Plt Count 152 L MPV 10.7 Immature Gran % (Auto) 1.3 H Neut % (Auto) 84.8 H Lymph % (Auto) 8.5 L [place] % (Auto) 5.0 Eos % (Auto) 0.2 Baso % (Auto) 0.2 Lymph # (Auto) 0.7 L [place] # (Auto) 0.4 Eos # (Auto) 0.0 Baso # (Auto) 0.0 Abs Immat Gran (auto) 0.11 H Absolute Neuts (auto) 7.1 Absolute Nucleated RBC 0.000 Nucleated RBC % (auto) 0.0 Anion Gap Estim Creat Clear Calc Estimated GFR Fasting Glucose Lactic Acid 1.8 Calcium Urine Color YELLOW Urine Appearance CLEAR Urine pH 6.0 Ur Specific [place] 1.025 Urine Protein 1+ H Urine Glucose (UA) NEG Urine Ketones 40 Urine Blood 3+ H Urine Nitrite NEG Ur Leukocyte Esterase NEG Urine RBC 50-75 H Urine WBC 0-2 Ur Squamous Epith Cells 1+ Urine Bacteria NONE 02/15/21 06:03 MCV MCH MCHC RDW Plt Count MPV Immature Gran % (Auto) Neut % (Auto) Lymph % (Auto) [place] % (Auto) Eos % (Auto) Baso % (Auto) Lymph # (Auto) [place] # (Auto) Eos # (Auto) Baso # (Auto) Abs Immat Gran (auto) Absolute Neuts (auto) Absolute Nucleated RBC Nucleated RBC % (auto) Anion Gap 15 Estim Creat Clear Calc 60.0 Estimated GFR > 60 Fasting Glucose 80 Lactic Acid Calcium 7.5 L Urine Color Urine Appearance Urine pH Ur Specific [place] Urine Protein Urine Glucose (UA) Urine Ketones Urine Blood Urine Nitrite Ur Leukocyte Esterase Urine RBC Urine WBC Ur Squamous Epith Cells Urine Bacteria Microbiology Microbiology Results: Microbiology 02/11/21 16:37 Stool Culture - Final Stool Assessment and Plan (1) Fever: Status: Acute Assessment and Plan: This is an 85-year-old male with past medical history of afib not on AC, CML, moderat , previous MN, HTN, HLD, BPH, MARIBEL, recent eye surgery for glaucoma who presents to the hospital after fall and syncope.? While in the ED patient developed fever, hypotension and is now admitted for sepsis as well as evaluation of syncope Fevers x 2 post operative, UA/CXR negative blood cx ordered 02/14 - negative to date will check rapid covid; additionally has an indurated area in the perineum which is tender but no flutuance. CT pelvis was negative upon admission, will check CT abd/pelvis NSTEMI suspected type 2 from significant anemia, fall / rhabdo heparin gtt deferrred (see reasoning in cardiology notes) Echo done, no RWMA identified Acute on [suspected chronic] anemia, macrocytic CLL - continue baseline meds h/h stable EGD showing grastritis / gastropathy Heme/onc consult appreciated grastritis / gastropathy ppi avoid aspirin indefinitely if possible, but at least 1 week syncope monitor orthostatics negative SIRS on admission resolved no evidence of bacterial infection Diarrhea C. diff negative and cultures wnl imodium PRN Metabolic acidosis, hypoK, hypoMg, DELMA all improving multifactorial from diarrhea, diamox use, dehydration Recent trabeculectomy at [facility] d/w Dr. Cook @ [phone] --has appt on 02/16/21 @ 11 AM continue pred forte / moxifloxacin (this was confirmed by our pharmacy with Dr. Cook) elevated liver enzymes down trending rhabdomyolysis improving with IVF thrombocytopenia -follow cbc history of AFib -not on any anticoagulation, possibly due to chronic anemia. takes baby asa -continue amiodarone and metoprolol Perineal pain likely from fall CT pelvis negative from admission, will repeat today h/h stable DNR/DNI DVT pptx, mechanical Quality Stroke Does the patient have a stroke diagnosis?: No VTE Prior VTE?: No VTE Risk Level:: Medical - moderate - high VTE Device Contraindication: N/A - Device Ordered VTE Drug Contraindication: Treatment Not Indicated
--- NOTE | 2021-02-15 10:15 | P.PNCA_ITS ---
Subjective Subjective Date of Service: 02/15/21 Interval history: No cardiac symptoms like angina or shortness of breath. Review of Systems Review of Systems Yes all other systems are reviewed and are negative Cardiovascular: Reports as per HPI, Reports no additional cardiovascular complaints, Denies acrocyanosis, Denies cool extremities, Denies painful fingertips, Denies chest pain, Denies chest pain at rest, Denies diaphoresis, Denies syncope, Denies irregular heart rhythm, Denies claudication, Denies leg edema, Denies lightheadedness, Denies palpitations and Denies dyspnea Respiratory: Denies dyspnea Denies syncope Endocrine: Denies palpitations Physical Exam Vital Signs: Last Vital Signs Temp 97.7 F 02/15/21 07:25 Pulse 102 H 02/15/21 09:57 Resp 18 02/15/21 07:25 BP 125/68 02/15/21 09:57 Pulse Ox 95 02/15/21 07:25 Body Mass Index 27.2 Const General: cooperative and no acute distress HENAK Other: Unremarkable Neck Neck: Yes normal visual inspection Chest Chest palpation & inspection: normal inspection of the chest Resp Auscultation: clear to auscultation bilaterally, no crackles and no wheezes Cardio Jugular venous distension: no JVD Palpation: normal PMI Heart sounds: S1 normal heart sound present, S2 normal heart sound present, no gallops, Murmur heart sound present systolic III/ and at the right sternal border and no rubs GI Palpation (GI): Soft to palpation Back/Spine/Pelvis Other: unremarkable Skin General skin exam: no rashes or lesions noted Neuro Cranial nerves: Yes Other cranial nerve findings present Extrem General: Yes no clubbing, cyanosis or edema Psych Mental Status: other Results Labs and Meds Result diagrams: 02/15/21 06:03 02/15/21 06:03 Lab results: Laboratory Results - last 24 hr 02/14/21 02/14/21 02/15/21 16:12 16:32 06:03 WBC 8.4 RBC 2.65 L Hgb 9.3 L Hct 26.7 L MCV 100.8 H MCH 35.1 H MCHC 34.8 RDW 14.9 Plt Count 152 L MPV 10.7 Immature Gran % (Auto) 1.3 H Neut % (Auto) 84.8 H Lymph % (Auto) 8.5 L [place] % (Auto) 5.0 Eos % (Auto) 0.2 Baso % (Auto) 0.2 Lymph # (Auto) 0.7 L [place] # (Auto) 0.4 Eos # (Auto) 0.0 Baso # (Auto) 0.0 Abs Immat Gran (auto) 0.11 H Absolute Neuts (auto) 7.1 Absolute Nucleated RBC 0.000 Nucleated RBC % (auto) 0.0 Sodium Potassium Chloride Carbon Dioxide Anion Gap BUN Creatinine Estim Creat Clear Calc Estimated GFR Fasting Glucose Lactic Acid 1.8 Calcium Urine Color YELLOW Urine Appearance CLEAR Urine pH 6.0 Ur Specific [place] 1.025 Urine Protein 1+ H Urine Glucose (UA) NEG Urine Ketones 40 Urine Blood 3+ H Urine Nitrite NEG Ur Leukocyte Esterase NEG Urine RBC 50-75 H Urine WBC 0-2 Ur Squamous Epith Cells 1+ Urine Bacteria NONE 02/15/21 06:03 WBC RBC Hgb Hct MCV MCH MCHC RDW Plt Count MPV Immature Gran % (Auto) Neut % (Auto) Lymph % (Auto) [place] % (Auto) Eos % (Auto) Baso % (Auto) Lymph # (Auto) [place] # (Auto) Eos # (Auto) Baso # (Auto) Abs Immat Gran (auto) Absolute Neuts (auto) Absolute Nucleated RBC Nucleated RBC % (auto) Sodium 136 Potassium 4.2 Chloride 110 H Carbon Dioxide 15 L Anion Gap 15 BUN 13 Creatinine 0.87 Estim Creat Clear Calc 60.0 Estimated GFR > 60 Fasting Glucose 80 Lactic Acid Calcium 7.5 L Urine Color Urine Appearance Urine pH Ur Specific [place] Urine Protein Urine Glucose (UA) Urine Ketones Urine Blood Urine Nitrite Ur Leukocyte Esterase Urine RBC Urine WBC Ur Squamous Epith Cells Urine Bacteria Imaging Radiologist's impression: Impressions Chest X-Ray 02/14/21 16:18 IMPRESSION: No acute finding Progress Note: A&P Assessment and plan (1) Rhabdomyolysis: Status: Acute (2) NSTEMI (non-ST elevated myocardial infarction): Status: Acute (3) Atherosclerotic cardiovascular disease: Status: Acute (4) Non-rheumatic aortic stenosis: Status: Acute (5) Preoperative cardiovascular examination: Status: Acute Assessment and Plan: Pertinent data reviewed. Troponins are 6570; 6604; 4330. Based on cardiology consultation in 2019, coronary anatormy as follows-cardiac catheterization in 2009-chronically occluded RCA with moderately severe LAD disease and moderate circumflex stenosis with collaterals to RCA from circumflex. Last stress test from 2017 report have RCA ischemia/diaphragmatic attenuation. Current echocardiogram with LVEF of 51%; inferior wall motion abnormality likely related to right+/-circumflex disease and moderate aortic stenosis. Overall troponin leak is probably from some combination of rhabdomyolysis and demand related secondary NSTEMI. However clinically has no symptoms whatsoever from this. Additionally, he is quite anemic and also had an eye surgery 2 days prior to admission. Hence for these reasons was not put on IV heparin. At his age, frailty and multiple medical comorbidities as well as lack of symptoms, probably conservative care. GI comments noted post EGD- may resume Aspirin when cleared by GI. With regard to statins, not listed in his admission meds- probably start as outpatient as he had rhabdo this admission. Fall Risk Details Current Medications: Current Medications Generic Name Dose Route Start Last Admin Trade Name Freq PRN Reason Stop Dose Admin Acetaminophen 650 mg 02/10/21 23:50 02/14/21 15:50 Acetaminophen 325 Mg Tablet PO 650 mg Q6H PRN Administration Pain, Mild (Pain Scale 1-3) Amiodarone HCl 100 mg 02/11/21 09:00 02/15/21 08:33 Amiodarone Hcl 200 Mg Tablet PO 100 mg DAILY ALEJANDRO Administration Docusate Sodium 100 mg 02/10/21 23:50 Docusate Sodium 100 Mg Capsule PO DAILY PRN Constipation Ferrous Sulfate 324 mg 02/14/21 14:00 02/15/21 08:34 Ferrous Sulfate 324 Mg Tablet. PO 324 mg DAILY ALEJANDRO Administration Folic Acid 1 mg 02/11/21 09:00 02/15/21 08:34 Folic Acid 1 Mg Tablet PO 1 mg DAILY ALEJANDRO Administration Loperamide HCl 2 mg 02/12/21 13:38 02/15/21 08:34 Loperamide Hcl 2 Mg Capsule PO 2 mg Q6H PRN Administration Diarrhea Meclizine HCl 25 mg 02/14/21 21:00 02/15/21 08:34 Meclizine Hcl 25 Mg Tablet PO 25 mg BID ALEJANDRO Administration Metoprolol Succinate 50 mg 02/11/21 09:00 02/15/21 08:34 Metoprolol Succinate Er 50 Mg Tab.Er.24h PO 50 mg DAILY ALEJANDRO Administration Protocol Moxifloxacin HCl 1 drop 02/11/21 13:00 02/15/21 08:35 Moxifloxacin Hcl 0.5 % Oph Rosa [place] 3 Ml Drpbtl EYE-RIGHT 1 drop QID ALEJANDRO Administration Patient Own 6 each 02/12/21 21:00 02/14/21 21:53 Medication (Imatinib PO 6 each 100 Mg Tablet) DAILY@2100 ALEJANDRO Administration Omeprazole 20 mg 02/14/21 15:30 02/15/21 08:34 Omeprazole 20 Mg Capsule.Dr PO 20 mg BID ALEJANDRO Administration Ondansetron HCl 4 mg 02/10/21 23:50 02/13/21 21:43 Ondansetron Hcl 4 Mg/2 Ml Vial IVPUSH 4 mg Q8H PRN Administration Nausea and Vomiting Potassium Chloride 40 meq 02/13/21 21:00 02/15/21 08:33 Potassium Chloride Packet 20 Meq Packet PO 40 meq BID ALEJANDRO Administration Prednisolone Acetate 1 drop 02/11/21 12:00 02/15/21 08:36 Prednisolone Acetate 1 % Oph Susp 5 Ml Drpbtl EYE-BOTH 1 drop 6XD ALEJANDRO Administration Sodium Bicarbonate 650 mg 02/11/21 16:40 02/15/21 08:33 Sodium Bicarbonate 650 Mg Tablet PO 650 mg BID ALEJANDRO Administration Sodium Chloride 3 ml 02/11/21 00:00 02/15/21 08:35 0.9 % Sodium Chloride Flush 3 Ml Syringe IVFLUSH 3 ml QSHIFT ALEJANDRO Administration Time Spent With Patient Time: Total time spent is greater than 50% in coordination of care (as documented) at patient's floor/unit and/or counseling patient: Time with patient: less than 15 minutes Progress Note: Quality Stroke Does the patient have a stroke diagnosis?: No Procedures Date of Service Date of Service: 02/15/21
[2021-02-15 10:52] LABS: COVID-19 Test Negative (Negative)
--- NOTE | 2021-02-15 11:46 | MHC.CM.PN ---
The goal is for Patient to be dc from [facility] tomorrow at 8AM. From [facility], Patient's Brother/Brandin, will transport Patient to his 11AM appointment at [facility]. Directly from that appointment, Brandin will transport Patient to [facility]. IMM reviewed with Patient today at bedside and original was left with him for his family to review per Patient's request) and a copy has been placed on the chart.
[2021-02-15] MEDS: iohexoL 350 MG/ML 100 ML INFUS..BTL IV (15:18)
[2021-02-15] MEDS: Piperacillin Sodium/Tazobactam 3.375 GM in 0.9 % Sodium Chloride 50 ML IV ×2 (17:36→23:43)
[2021-02-15] MEDS: Acetaminophen 325 MG TABLET 650 MG PO (18:25)
--- NOTE | 2021-02-15 18:45 | PC.NURSE ---
Patient very weak today, did not want to get out of bed. Diarrhea x 4, imodium admin x 2. CT abd/pelv completed, perineal abcess I+D'ed. Patient had fever of 102. 6, tylenol admin. Will pass to oncoming RN.
--- NOTE | 2021-02-15 19:04 | PM.CNGS ---
History of Present Illness Consult details Consult date: 02/15/21 Narrative: 85-year-old male patient well known to me with a previous history of gallstone pancreatitis presenting on 02/10/2021 after being found on his floor for several hours. He reports recently undergoing right eye surgery in [place] last week. He apparently lost consciousness while in the bathroom during the night and was found the next day by his family members. He was noted today to have increased pelvic pain as well as fever. Subsequent workup with the CT of the pelvis today revealed a large perirectal abscess. Surgical consultation was requested for possible incision and drainage. He denies a previous history of perirectal infections. Review of Systems Review of Systems: Yes all other systems are reviewed and are negative Constitutional: Constitutional: Reports body ache(s), Reports chills, Reports fever(s) and Reports malaise Eyes: Comments: Recent eye surgery with patch in on right eye Cardiovascular: Cardiovascular: Denies chest pain and Reports irregular heart rhythm Respiratory: Respiratory: Denies cough and Denies hemoptysis Gastrointestinal: Gastrointestinal: Reports loose stools, Denies nausea and Denies vomiting Musculoskeletal: Musculoskeletal: Reports muscle weakness PMFSH Past Medical History Medical History Aortic stenosis Atrial fibrillation Benign prostatic hyperplasia Coronary artery disease GERD (gastroesophageal reflux disease) Glaucoma History of heart attack Hypercholesterolemia Hypertension Leg pain Moderate aortic stenosis Obstructive sleep apnea Sleep apnea Status post placement of implantable loop recorder Vitamin B12 deficiency Family History Family History Father No problems noted. Mother No problems noted. Brother Leukemia AML (acute myeloblastic leukemia) Son In good health Daughter In good health Surgical History Surgical History H/O rectal polypectomy History of cataract surgery History of cholecystectomy History of esophagogastroduodenoscopy (EGD) History of eye surgery History of tonsillectomy Hx of colonoscopy Status post right knee replacement Social History Social History Household Members: None Housing: Apartment Do you presently have visiting nurse or other home services: No Alcohol intake: current Alcohol intake frequency: does not drink Patient Tobacco Use Status: Former Tobacco user Tobacco use type: Cigarette e-Cigarette/Vaping Use: Never Used Second Hand Smoke Exposure: No Advance Directives Date on File: 02/11/21 service: Yes Current occupational status: retired Current occupational exposures/hazards: No Meds Allergies Allergy/AdvReac Type Severity Reaction Status Date / Time No Known Allergies Allergy Verified 12/26/20 16:31 [No Known Allergies*] Active Medications: Current Medications Generic Name Dose Route Start Last Admin Trade Name Meirq PRN Reason Stop Dose Admin Acetaminophen 650 mg 02/10/21 23:50 02/15/21 18:25 Acetaminophen 325 Mg Tablet PO 650 mg Q6H PRN Administration Pain, Mild (Pain Scale 1-3) Amiodarone HCl 100 mg 02/11/21 09:00 02/15/21 08:33 Amiodarone Hcl 200 Mg Tablet PO 100 mg DAILY ALEJANDRO Administration Docusate Sodium 100 mg 02/10/21 23:50 Docusate Sodium 100 Mg Capsule PO DAILY PRN Constipation Ferrous Sulfate 324 mg 02/14/21 14:00 02/15/21 08:34 Ferrous Sulfate 324 Mg Tablet.Dr PO 324 mg DAILY ALEJANDRO Administration Folic Acid 1 mg 02/11/21 09:00 02/15/21 08:34 Folic Acid 1 Mg Tablet PO 1 mg DAILY ALEJANDRO Administration Piperacillin Sod/Tazobactam 50 mls @ 100 mls/hr 02/15/21 18:00 02/15/21 18:15 Sod 3.375 gm/ Sodium Chloride IV Infused Q6H ALEJANDRO Infusion Loperamide HCl 2 mg 02/12/21 13:38 02/15/21 17:36 Loperamide Hcl 2 Mg Capsule PO 2 mg Q6H PRN Administration Diarrhea Meclizine HCl 25 mg 02/14/21 21:00 02/15/21 08:34 Meclizine Hcl 25 Mg Tablet PO 25 mg BID ALEJANDRO Administration Metoprolol Succinate 50 mg 02/11/21 09:00 02/15/21 08:34 Metoprolol Succinate Er 50 Mg Tab.Er.24h PO 50 mg DAILY ALEJANDRO Administration Protocol Moxifloxacin HCl 1 drop 02/11/21 13:00 02/15/21 17:38 Moxifloxacin Hcl 0.5 % Oph Rosa Maria 3 Ml Drpbtl EYE-RIGHT 1 drop QID ALEJANDRO Administration Patient Own 6 each 02/12/21 21:00 02/14/21 21:53 Medication (Imatinib PO 6 each 100 Mg Tablet) DAILY@2100 ALEJANDRO Administration Omeprazole 20 mg 02/14/21 15:30 02/15/21 08:34 Omeprazole 20 Mg Capsule.Dr PO 20 mg BID ALEJANDRO Administration Ondansetron HCl 4 mg 02/10/21 23:50 02/13/21 21:43 Ondansetron Hcl 4 Mg/2 Ml Vial IVPUSH 4 mg Q8H PRN Administration Nausea and Vomiting Prednisolone Acetate 1 drop 02/11/21 12:00 02/15/21 18:15 Prednisolone Acetate 1 % Oph Susp 5 Ml Drpbtl EYE-BOTH 1 drop 6XD ALEJANDRO Administration Sodium Bicarbonate 650 mg 02/11/21 16:40 02/15/21 08:33 Sodium Bicarbonate 650 Mg Tablet PO 650 mg BID ALEJANDRO Administration Sodium Chloride 3 ml 02/11/21 00:00 02/15/21 17:36 0.9 % Sodium Chloride Flush 3 Ml Syringe IVFLUSH 3 ml QSHIFT ALEJANDRO Administration Home Medications Medication Instructions Recorded Confirmed Last Taken Type amiodarone 100 mg tablet 100 mg PO DAILY 06/27/20 02/10/21 02/10/21 20:00 History aspirin 81 mg tablet 81 mg PO DAILY 06/27/20 02/10/21 08/09/20 History brimonidine 0.025 % eye drops 1 drp OPHTHALMIC (EYE) TID 06/27/20 02/12/21 02/10/21 22:00 History ascorbic acid (vitamin C) 1,500 mg 1,000 tab PO .QD tab 07/19/20 02/10/21 Unknown History tablet omeprazole 20 mg capsule,delayed 20 mg PO BID cap 11/07/20 02/12/21 Unknown History release ferrous sulfate 325 mg (65 mg 325 mg PO DAILY 12/26/20 02/10/21 Unknown History iron) tablet folic acid 400 mcg tablet 0.4 mg PO DAILY 12/26/20 02/10/21 Unknown History moxifloxacin 0.5 % eye drops 1 drp OPHTHALMIC-RIGHT QID 02/10/21 02/11/21 02/10/21 22:00 History pilocarpine HCl 2 % eye drops 1 drp OPHTHALMIC (EYE) QID 02/10/21 02/10/21 02/10/21 22:00 History prednisolone acetate 1 % eye 1 drp OPHTHALMIC (EYE) 6XD 02/10/21 02/11/21 02/10/21 22:00 History drops,suspension acetazolamide 500 mg 1 cap PO BID 02/12/21 02/12/21 Unknown History capsule,extended release imatinib 100 mg tablet 600 mg PO DAILY@2100 02/12/21 02/12/21 Unknown History metoprolol succinate 25 mg 25 mg PO DAILY 02/12/21 02/12/21 Unknown History tablet,extended release 24 hr timolol 0.5 % eye drops 1 drp OPHTHALMIC (EYE) BID 02/12/21 02/12/21 Unknown History Physical Exam Vital Signs: Vital Signs: Last Vital Signs Temp 102.6 F H 02/15/21 18:25 Pulse 100 02/15/21 15:12 Resp 18 02/15/21 15:12 BP 144/70 H 02/15/21 15:12 Pulse Ox 95 02/15/21 15:12 Body Mass Index 27.2 Const: General: well developed and ill appearing Nutritional Appearance: well nourished Orientation/consciousness: patient oriented x3 Limitations: no limitations Eyes: Other: right eye patch, limited vision left eye. Resp: Other: Breathing comfortably on room air, no respiratory distress GI: Other: abdomen soft and nondistended, nontender. Rectal exam reveals peroneal swelling at the base of the scrotum extending towards the perianal skin. There is a 5 to 7 cm area of fluctuance in the anterior perianal skin which appears consistent with an underlying abscess. Site is warm and tender to palpation Skin: Other: perianal skin as noted above. Skin is otherwise warm and dry without rashes Neuro: General: patient oriented x3 Results Labs Result diagrams: 02/15/21 06:03 02/15/21 06:03 Labs: Abnormal lab results 02/15/21 02/15/21 Range/Units 06:03 06:03 RBC 2.65 L (4.60-5.80) X10*6/uL Hgb 9.3 L (14.0-18.0) g/dl Hct 26.7 L (42-52) % MCV 100.8 H (80-98) fL MCH 35.1 H (27.0-33.0) pg Plt Count 152 L (160-400) X10*3/uL Immature Gran % (Auto) 1.3 H (0.0-0.4) % Neut % (Auto) 84.8 H (45-73) % Lymph % (Auto) 8.5 L (20-40) % Lymph # (Auto) 0.7 L (1.2-4.9) X10*3/uL Abs Immat Gran (auto) 0.11 H (0.00-0.03) X10*3/uL Chloride 110 H (96-108) mmol/L Carbon Dioxide 15 L (22-29) mmol/L Calcium 7.5 L (8.4-10.2) mg/dL Short CBC 02/15/21 Range/Units 06:03 WBC 8.4 (4.8-10.8) X10*3/uL Hgb 9.3 L (14.0-18.0) g/dl Hct 26.7 L (42-52) % Plt Count 152 L (160-400) X10*3/uL BMP 02/15/21 06:03 Sodium 136 Potassium 4.2 Chloride 110 H Carbon Dioxide 15 L BUN 13 Creatinine 0.87 Calcium 7.5 L Urine 02/10/21 02/14/21 Range/Units 18:55 16:12 Urine Color YELLOW YELLOW Urine Appearance HAZY CLEAR Urine pH 6.0 6.0 (5.0-8.0) Ur Specific [place] 1.020 1.025 (1.005-1.025) Urine Protein 1+ H 1+ H (NEG-TRACE) MG/DL Urine Glucose (UA) NEG NEG (NEG) MG/DL All other labs normal. Imaging CT scan - pelvis: image reviewed Assessment and Plan (1) Perirectal abscess: Status: Acute patient presents with a large perirectal abscess noted initially on CT scan with confirmed on physical examination. This is a large area measuring approximately 5-7 cm in diameter in the anterior perianal skin. I recommended incision and drainage of the site which could be performed at the bedside. After discussion of the procedure, risks, and alternatives, consents to the procedure. Procedure was performed at the bedside and he tolerated this well. A large purulence collection was drained. This collection contained fecal in discharge with some blood. Wounds were dressed with ABD pads. Procedures Date of Service Date of Service: 02/15/21 Abscess I/D Consent for Procedure: Emergent-no informed consent obtained ( Verbal consent obtained) Site: francheska-rectal Sedation/analgesia: none Anesthetic used: lidocaine 1% Technique: incised with #11 blade Amount of fluid (mL): 10 Irrigation: Yes Packing used?: none
[2021-02-16] VITALS (10 sets, daily range): BP systolic 99–138; BP diastolic 51–65; PULSE 81–93; RESP 18–20; TEMP 36.6–37.8; O2SAT 92–96
[2021-02-16] MEDS: prednisoLONE Acetate 1 % Oph Susp 5 ML DRPBTL 1 DROP EYE-BOTH ×6 (06:05→21:43)
[2021-02-16] MEDS: Piperacillin Sodium/Tazobactam 3.375 GM in 0.9 % Sodium Chloride 50 ML IV ×4 (06:06→23:07)
[2021-02-16 07:19] LABS: Hematocrit 24.8 % (42-52); Hemoglobin 8.6 g/dl (14.0-18.0); Mean Corpuscular HGB Conc 34.7 g/dl (31.0-36.0); Mean Corpuscular Volume 100.8 fL (80-98); Mean Platelet Volume 10.5 fL (9.4-12.4); Platelet Count 142 X10*3/uL (160-400); Red Blood Count 2.46 X10*6/uL (4.60-5.80); Red Cell Distribution Width 14.7 % (11.0-16.0)
[2021-02-16 07:42] LABS: Anion Gap 10 (12-20); Blood Urea Nitrogen 14 mg/dL (9-16); Calcium 7.6 mg/dL (8.4-10.2); Carbon Dioxide 20 mmol/L (22-29); Chloride 107 mmol/L (96-108); Creatinine Clr Calc Pharmacy 47.9; Estimated Glomerular Filt Rate > 60; Glucose Random 97 mg/dL (60-115); Potassium 3.7 mmol/L (3.3-5.1); Sodium 133 mmol/L (135-145)
--- NOTE | 2021-02-16 08:14 | PM.PNGS ---
Subjective Subjective Date of Service: 02/16/21 Interval history: Patient reports decreased pain in his perirectal skin, reports continued drainage. Physical Exam Vital Signs: Vital Signs: Last Vital Signs Temp 98.9 F 02/16/21 03:17 Pulse 93 02/16/21 03:17 Resp 20 02/16/21 03:17 BP 115/62 02/16/21 03:17 Pulse Ox 96 02/16/21 03:17 Body Mass Index 27.2 GI: Other: Anterior perirectal skin is less erythematous. I and D's and draining feculent smelling material, nontender to palpation with less inflammation. Skin: General skin exam: no rashes or lesions noted Procedures Date of Service Date of Service: 02/16/21 Progress Note: A&P Assessment and plan (1) Perirectal abscess: Status: Acute Assessment and Plan: POD #1 status post incision and drainage perirectal abscess. Patient feels improved this morning. Wounds continue to drain appropriately. Fall Risk Details Current Medications: Current Medications Generic Name Dose Route Start Last Admin Trade Name Meirq PRN Reason Stop Dose Admin Acetaminophen 650 mg 02/10/21 23:50 02/15/21 18:25 Acetaminophen 325 Mg Tablet PO 650 mg Q6H PRN Administration Pain, Mild (Pain Scale 1-3) Amiodarone HCl 100 mg 02/11/21 09:00 02/15/21 08:33 Amiodarone Hcl 200 Mg Tablet PO 100 mg DAILY ALEJANDRO Administration Docusate Sodium 100 mg 02/10/21 23:50 Docusate Sodium 100 Mg Capsule PO DAILY PRN Constipation Ferrous Sulfate 324 mg 02/14/21 14:00 02/15/21 08:34 Ferrous Sulfate 324 Mg Tablet.Dr PO 324 mg DAILY ALEJANDRO Administration Folic Acid 1 mg 02/11/21 09:00 02/15/21 08:34 Folic Acid 1 Mg Tablet PO 1 mg DAILY ALEJANDRO Administration Piperacillin Sod/Tazobactam 50 mls @ 100 mls/hr 02/15/21 18:00 02/16/21 06:38 Sod 3.375 gm/ Sodium Chloride IV Infused Q6H ALEJANDRO Infusion Loperamide HCl 2 mg 02/12/21 13:38 02/15/21 17:36 Loperamide Hcl 2 Mg Capsule PO 2 mg Q6H PRN Administration Diarrhea Meclizine HCl 25 mg 02/14/21 21:00 08/19/21 20:18 Meclizine Hcl 25 Mg Tablet PO 25 mg BID ALEJANDRO Administration Metoprolol Succinate 50 mg 02/11/21 09:00 02/15/21 08:34 Metoprolol Succinate Er 50 Mg Tab.Er.24h PO 50 mg DAILY ALEJANDRO Administration Protocol Moxifloxacin HCl 1 drop 02/11/21 13:00 02/15/21 20:18 Moxifloxacin Hcl 0.5 % Oph Rosa Maria 3 Ml Drpbtl EYE-RIGHT 1 drop QID ALEJANDRO Administration Patient Own 6 each 02/12/21 21:00 02/15/21 20:18 Medication (Imatinib PO 6 each 100 Mg Tablet) DAILY@2100 ALEJANDRO Administration Omeprazole 20 mg 02/14/21 15:30 02/15/21 20:18 Omeprazole 20 Mg Capsule.Dr PO 20 mg BID ALEJANDRO Administration Ondansetron HCl 4 mg 02/10/21 23:50 02/13/21 21:43 Ondansetron Hcl 4 Mg/2 Ml Vial IVPUSH 4 mg Q8H PRN Administration Nausea and Vomiting Prednisolone Acetate 1 drop 02/11/21 12:00 02/16/21 06:05 Prednisolone Acetate 1 % Oph Susp 5 Ml Drpbtl EYE-BOTH 1 drop 6XD ALEJANDRO Administration Sodium Bicarbonate 650 mg 02/11/21 16:40 02/15/21 20:18 Sodium Bicarbonate 650 Mg Tablet PO 650 mg BID ALEJANDRO Administration Sodium Chloride 3 ml 02/11/21 00:00 02/15/21 23:43 0.9 % Sodium Chloride Flush 3 Ml Syringe IVFLUSH 3 ml QSHIFT ALEJANDRO Administration Time Spent With Patient Time: Total time spent is greater than 50% in coordination of care (as documented) at patient's floor/unit and/or counseling patient: Time with patient: less than 15 minutes Quality Stroke Does the patient have a stroke diagnosis?: No VTE Prior VTE?: No VTE Risk Level:: Medical - moderate - high VTE Device Contraindication: N/A - Device Ordered VTE Drug Contraindication: Treatment Not Indicated
[2021-02-16] MEDS: 0.9 % Sodium Chloride Flush 3 ML SYRINGE IVFLUSH ×2 (08:59→21:39)
[2021-02-16] MEDS: Omeprazole 20 MG CAPSULE.DR PO ×2 (08:59→21:38)
[2021-02-16] MEDS: Folic Acid 1 MG TABLET PO (08:59)
[2021-02-16] MEDS: Sodium Bicarbonate 650 MG TABLET PO ×2 (08:59→21:38)
[2021-02-16] MEDS: Meclizine HCl 25 MG TABLET PO ×2 (08:59→21:38)
[2021-02-16] MEDS: Ferrous Sulfate 324 MG TABLET.DR PO (09:00)
[2021-02-16] MEDS: Amiodarone HCL 200 MG TABLET 100 MG PO (09:00)
[2021-02-16] MEDS: Moxifloxacin HCl 0.5 % Oph Sol 3 ML DRPBTL 1 DROP EYE-RIGHT ×4 (09:00→21:39)
[2021-02-16] MEDS: Metoprolol Succinate ER 50 MG TAB.ER.24H PO (09:00)
--- NOTE | 2021-02-16 11:59 | HO.PM.IMPN ---
Subjective Subjective Date of Service: 02/16/21 Interval History: seen and examined this AM francheska-rectal pain improved reports it is draining Review of Systems General - no fevers or chills Cardiovascular - no chest pain Respiratory - no shortness of breath or cough Abdominal- no abdominal pain, nausea, vomiting, diarrhea Physical Exam Vital Signs: Vital Signs: Last Vital Signs Temp 99.0 F 02/16/21 11:17 Pulse 81 02/16/21 11:17 Resp 20 02/16/21 11:17 BP 99/54 L 02/16/21 11:17 Pulse Ox 96 02/16/21 11:17 Body Mass Index 27.2 Const: Other: General - no acute distress, appears comfortable Eyes - no pain with R eye movement Cardiovascular - regular rate and rhythm, S1-S2 Lungs - normal respiratory effort, clear to auscultation bilaterally, no wheezing Abdomen - soft, nontender, no rebound or guarding Extremities - no edema bilaterally Neuro - awake and alert, no focal deficits Objective Data Current Medications Generic Name Dose Route Start Last Admin Trade Name Vick PRN Reason Stop Dose Admin Acetaminophen 650 mg 02/10/21 23:50 02/15/21 18:25 Acetaminophen 325 Mg Tablet PO 650 mg Q6H PRN Administration Pain, Mild (Pain Scale 1-3) Amiodarone HCl 100 mg 02/11/21 09:00 02/16/21 09:00 Amiodarone Hcl 200 Mg Tablet PO 100 mg DAILY ALEJANDRO Administration Docusate Sodium 100 mg 02/10/21 23:50 Docusate Sodium 100 Mg Capsule PO DAILY PRN Constipation Ferrous Sulfate 324 mg 02/14/21 14:00 02/16/21 09:00 Ferrous Sulfate 324 Mg Tablet. PO 324 mg DAILY ALEJANDRO Administration Folic Acid 1 mg 02/11/21 09:00 02/16/21 08:59 Folic Acid 1 Mg Tablet PO 1 mg DAILY ALEJANDRO Administration Piperacillin Sod/Tazobactam 50 mls @ 100 mls/hr 02/15/21 18:00 02/16/21 06:38 Sod 3.375 gm/ Sodium Chloride IV Infused Q6H ALEJANDRO Infusion Lactated Ringer's 1,000 mls @ 100 mls/hr 02/16/21 12:00 Lr IVCONT .Q10H ALEJANDRO Loperamide HCl 2 mg 02/12/21 13:38 08/19/21 17:36 Loperamide Hcl 2 Mg Capsule PO 2 mg Q6H PRN Administration Diarrhea Meclizine HCl 25 mg 02/14/21 21:00 02/16/21 08:59 Meclizine Hcl 25 Mg Tablet PO 25 mg BID ALEJANDRO Administration Metoprolol Succinate 50 mg 02/11/21 09:00 02/16/21 09:00 Metoprolol Succinate Er 50 Mg Tab.Er.24h PO 50 mg DAILY ALEJANDRO Administration Protocol Moxifloxacin HCl 1 drop 02/11/21 13:00 02/16/21 09:00 Moxifloxacin Hcl 0.5 % Oph Rosa Maria 3 Ml Drpbtl EYE-RIGHT 1 drop QID ALEJANDRO Administration Patient Own 6 each 02/12/21 21:00 02/15/21 20:18 Medication (Imatinib PO 6 each 100 Mg Tablet) DAILY@2100 ALEJANDRO Administration Omeprazole 20 mg 02/14/21 15:30 02/16/21 08:59 Omeprazole 20 Mg Capsule.Dr PO 20 mg BID ALEJANDRO Administration Ondansetron HCl 4 mg 02/10/21 23:50 02/13/21 21:43 Ondansetron Hcl 4 Mg/2 Ml Vial IVPUSH 4 mg Q8H PRN Administration Nausea and Vomiting Prednisolone Acetate 1 drop 02/11/21 12:00 02/16/21 09:00 Prednisolone Acetate 1 % Oph Susp 5 Ml Drpbtl EYE-BOTH 1 drop 6XD ALEJANDRO Administration Sodium Bicarbonate 650 mg 02/11/21 16:40 02/16/21 08:59 Sodium Bicarbonate 650 Mg Tablet PO 650 mg BID ALEJANDRO Administration Sodium Chloride 3 ml 02/11/21 00:00 02/16/21 08:59 0.9 % Sodium Chloride Flush 3 Ml Syringe IVFLUSH 3 ml QSHIFT ALEJANDRO Administration Labs CBC & Chem 7: 02/16/21 06:04 02/16/21 06:04 Labs: Laboratory Results - last 24 hr 02/16/21 02/16/21 06:04 06:04 MCV 100.8 H MCH 35.0 H MCHC 34.7 RDW 14.7 Plt Count 142 L MPV 10.5 Absolute Nucleated RBC 0.000 Nucleated RBC % (auto) 0.0 Anion Gap 10 L Estim Creat Clear Calc 47.9 Estimated GFR > 60 Random Glucose 97 Calcium 7.6 L Microbiology Microbiology Results: Microbiology 02/10/21 23:32 Blood Culture - Final Blood - Venous No growth after 5 days. 02/10/21 23:32 Blood Culture - Final Blood - Venous No growth after 5 days. 02/14/21 16:32 Blood Culture - Preliminary Blood - Venous No growth after 24 hours. 02/14/21 16:32 Blood Culture - Preliminary Blood - Venous No growth after 24 hours. Assessment and Plan (1) Perirectal abscess: Status: Acute Assessment and Plan: This is an 85-year-old male with past medical history of afib not on AC, CML, moderat , previous WI, HTN, HLD, BPH, MARIBEL, recent eye surgery for glaucoma who presents to the hospital after fall and syncope.? While in the ED patient developed fever, hypotension and is now admitted for sepsis as well as evaluation of syncope Perirectal abscess s/p bedside drainage question if this is related to his fall continue zosyn, will add vancomycin surgical input appreciated NSTEMI suspected type 2 from significant anemia, fall / rhabdo heparin gtt deferrred (see reasoning in cardiology notes) Echo done, no RWMA identified d/w GI / Cardiology: will use plavix over aspirin (1 week from EGD) Acute on [suspected chronic] anemia, macrocytic CLL - continue baseline meds h/h stable EGD showing grastritis / gastropathy Heme/onc consult appreciated grastritis / gastropathy ppi syncope monitor orthostatics negative SIRS on admission resolved Diarrhea C. diff negative and cultures wnl imodium PRN Metabolic acidosis, hypoK, hypoMg, DELMA all improving multifactorial from diarrhea, diamox use, dehydration Recent trabeculectomy at [facility] d/w Dr. Cook @ [phone] -- appt was scheduled for 02/16, but will need to be rescheduled continue pred forte / moxifloxacin (this was confirmed by our pharmacy with Dr. Cook) elevated liver enzymes down trending rhabdomyolysis improving with IVF thrombocytopenia -follow cbc history of AFib -not on any anticoagulation, possibly due to chronic anemia. takes baby asa -continue amiodarone and metoprolol DNR/DNI DVT pptx, mechanical Quality Stroke Does the patient have a stroke diagnosis?: No VTE Prior VTE?: No VTE Risk Level:: Medical - moderate - high VTE Device Contraindication: N/A - Device Ordered VTE Drug Contraindication: Treatment Not Indicated
--- NOTE | 2021-02-16 12:18 | MHC.CM.PN ---
MALE 85 dx s/p fall syncope Discharge on hold until Friday, due to temp >102. The source is identified as Ana Maria rectal abscess. Family has been instructed to reschedule the eye appointment for Friday late morning. [facility] has been notified of delay in discharge until Friday. DP To acute rehab Late Friday. Prior to rehab, the Pt will go to F/U eye appt. CM will follow.
[2021-02-16] MEDS: Lactated Ringers 1,000 ML 100 ML IVCONT (12:52)
[2021-02-16] MEDS: vancomycin HCL 1,250 MG in 0.9 % Sodium Chloride 250 ML 166.67 MG IV (12:52)
--- NOTE | 2021-02-16 19:34 | PC.NURSE ---
Patient's dressing to perineal area changed; area less red and less swollen. Patient not wanting to get OOB, work with physical therapy. Diarrhea has resolved. Patient requesting staff feed him, stating that I can't see and I'm sick of spilling stuff on my tom . This RN educated the patient, stating that he should maintain his independence and continue to feed himself. No further complaints
[2021-02-16] MEDS: ondansetron HCL 4 MG/2 ML VIAL IVPUSH (23:07)
[2021-02-17] VITALS (9 sets, daily range): BP systolic 112–135; BP diastolic 56–60; PULSE 82–94; RESP 16–18; TEMP 36.6–37.7; O2SAT 93–98
[2021-02-17] MEDS: Piperacillin Sodium/Tazobactam 3.375 GM in 0.9 % Sodium Chloride 50 ML IV ×4 (05:03→23:45)
[2021-02-17] MEDS: prednisoLONE Acetate 1 % Oph Susp 5 ML DRPBTL 1 DROP EYE-BOTH ×6 (05:03→20:24)
[2021-02-17 06:54] LABS: Anion Gap 11 (12-20); Blood Urea Nitrogen 13 mg/dL (9-16); Calcium 7.5 mg/dL (8.4-10.2); Carbon Dioxide 21 mmol/L (22-29); Chloride 107 mmol/L (96-108); Creatinine Clr Calc Pharmacy 50.2; Estimated Glomerular Filt Rate > 60; Glucose Random 108 mg/dL (60-115); Potassium 3.7 mmol/L (3.3-5.1); Sodium 135 mmol/L (135-145)
[2021-02-17 06:58] LABS: Hematocrit 24.7 % (42-52); Hemoglobin 8.4 g/dl (14.0-18.0); Mean Platelet Volume 10.7 fL (9.4-12.4); Platelet Count 165 X10*3/uL (160-400); Red Blood Count 2.47 X10*6/uL (4.60-5.80); Red Cell Distribution Width 14.5 % (11.0-16.0); White Blood Count 6.8 X10*3/uL (4.8-10.8)
[2021-02-17] MEDS: Amiodarone HCL 200 MG TABLET 100 MG PO (09:06)
[2021-02-17] MEDS: Meclizine HCl 25 MG TABLET PO ×2 (09:06→20:23)
[2021-02-17] MEDS: Omeprazole 20 MG CAPSULE.DR PO ×2 (09:06→20:23)
[2021-02-17] MEDS: Folic Acid 1 MG TABLET PO (09:06)
[2021-02-17] MEDS: Ferrous Sulfate 324 MG TABLET.DR PO (09:06)
[2021-02-17] MEDS: 0.9 % Sodium Chloride Flush 3 ML SYRINGE IVFLUSH ×3 (09:07→20:23)
[2021-02-17] MEDS: Moxifloxacin HCl 0.5 % Oph Sol 3 ML DRPBTL 1 DROP EYE-RIGHT ×4 (09:07→20:28)
[2021-02-17] MEDS: Sodium Bicarbonate 650 MG TABLET PO ×2 (09:07→20:23)
[2021-02-17] MEDS: vancomycin HCL 1,250 MG in 0.9 % Sodium Chloride 250 ML 166.67 MG IV (13:07)
--- NOTE | 2021-02-17 14:31 | PM.IMPN ---
Progress Note: A&P (1) Perirectal abscess: Status: Acute Assessment and Plan: This is an 85-year-old male with past medical history of afib not on AC, CML, moderat , previous NH, HTN, HLD, BPH, MARIBEL, recent eye surgery for glaucoma who presents to the hospital after fall and syncope.? While in the ED patient developed fever, hypotension and is now admitted for sepsis as well as evaluation of syncope Perirectal abscess s/p I&D continue zosyn, will add vancomycin surgery following NSTEMI suspected type 2 from significant anemia, fall / rhabdo heparin gtt deferrred (see reasoning in cardiology notes) Echo done, no RWMA identified d/w GI / Cardiology: will use plavix over aspirin (1 week from EGD) Acute on [suspected chronic] anemia, macrocytic CLL - continue baseline meds h/h stable EGD showing grastritis / gastropathy Heme/onc consult appreciated gastritis / gastropathy ppi syncope monitor orthostatics negative SIRS on admission resolved Diarrhea C. diff negative and cultures wnl imodium PRN Metabolic acidosis, hypoK, hypoMg, DELMA all improving multifactorial from diarrhea, diamox use, dehydration Recent trabeculectomy at [facility] d/w Dr. Cook @ [phone] -- appt was scheduled for 02/16, but will need to be rescheduled continue pred forte / moxifloxacin (this was confirmed by our pharmacy with Dr. Cook) elevated liver enzymes down trending rhabdomyolysis improving with IVF thrombocytopenia -follow cbc history of AFib -not on any anticoagulation, possibly due to chronic anemia. takes baby asa -continue amiodarone and metoprolol DNR/DNI DVT pptx, mechanical Subjective Subjective Date of Service: 02/17/21 Interval History: follow up francheska-rectal abscess moderate pain to rectum no chest pain unable to have BM Physical Exam Vital Signs: Vital Signs: Last Vital Signs Temp 98.9 F 02/17/21 11:43 Pulse 86 02/17/21 11:43 Resp 16 02/17/21 11:43 BP 121/60 02/17/21 11:43 Pulse Ox 98 02/17/21 11:43 Body Mass Index 27.2 Appearing in no acute distress lung sounds are clear to auscultation heart regular rate rhythm, clear S1, S2 positive bowel sounds, abdomen is soft, nontender neuro patient is alert x3, no focal deficits francheska rectal abscess draining yellow drainage,malodourous Objective Data Current Medications Generic Name Dose Route Start Last Admin Trade Name Vick PRN Reason Stop Dose Admin Acetaminophen 650 mg 02/10/21 23:50 02/15/21 18:25 Acetaminophen 325 Mg Tablet PO 650 mg Q6H PRN Administration Pain, Mild (Pain Scale 1-3) Amiodarone HCl 100 mg 02/11/21 09:00 02/17/21 09:06 Amiodarone Hcl 200 Mg Tablet PO 100 mg DAILY ALEJANDRO Administration Docusate Sodium 100 mg 02/10/21 23:50 Docusate Sodium 100 Mg Capsule PO DAILY PRN Constipation Ferrous Sulfate 324 mg 02/14/21 14:00 02/17/21 09:06 Ferrous Sulfate 324 Mg Tablet.Dr PO 324 mg DAILY ALEJANDRO Administration Folic Acid 1 mg 02/11/21 09:00 02/17/21 09:06 Folic Acid 1 Mg Tablet PO 1 mg DAILY ALEJANDRO Administration Piperacillin Sod/Tazobactam 50 mls @ 100 mls/hr 02/15/21 18:00 02/17/21 13:13 Sod 3.375 gm/ Sodium Chloride IV Infused Q6H ALEJANDRO Infusion Vancomycin HCl 1,250 mg/ 250 mls @ 166.667 mls/hr 02/16/21 13:00 02/17/21 13:07 Sodium Chloride IV 166.67 mls/hr Q24H ALEJANDRO Administration Loperamide HCl 2 mg 02/12/21 13:38 02/15/21 17:36 Loperamide Hcl 2 Mg Capsule PO 2 mg Q6H PRN Administration Diarrhea Meclizine HCl 25 mg 02/14/21 21:00 02/17/21 09:06 Meclizine Hcl 25 Mg Tablet PO 25 mg BID ALEJANDRO Administration Metoprolol Succinate 50 mg 02/11/21 09:00 02/16/21 09:00 Metoprolol Succinate Er 50 Mg Tab.Er.24h PO 50 mg DAILY ALEJANDRO Administration Protocol Moxifloxacin HCl 1 drop 02/11/21 13:00 02/17/21 13:07 Moxifloxacin Hcl 0.5 % Oph Rosa Maria 3 Ml Drpbtl EYE-RIGHT 1 drop QID ALEJANDRO Administration Patient Own 6 each 02/12/21 21:00 02/16/21 21:39 Medication (Imatinib PO 6 each 100 Mg Tablet) DAILY@2100 ALEJANDRO Administration Omeprazole 20 mg 02/14/21 15:30 02/17/21 09:06 Omeprazole 20 Mg Capsule.Dr PO 20 mg BID ALEJANDRO Administration Ondansetron HCl 4 mg 02/10/21 23:50 02/16/21 23:07 Ondansetron Hcl 4 Mg/2 Ml Vial IVPUSH 4 mg Q8H PRN Administration Nausea and Vomiting Pharmacy Consult 1 each 02/16/21 12:02 Consult Rx Vancomycin Dosing MISCELLANE DAILY PRN Consult order Prednisolone Acetate 1 drop 02/11/21 12:00 02/17/21 12:16 Prednisolone Acetate 1 % Oph Susp 5 Ml Drpbtl EYE-BOTH 1 drop 6XD ALEJANDRO Administration Sodium Bicarbonate 650 mg 02/11/21 16:40 02/17/21 09:07 Sodium Bicarbonate 650 Mg Tablet PO 650 mg BID ALEJANDRO Administration Sodium Chloride 3 ml 02/11/21 00:00 02/17/21 09:07 0.9 % Sodium Chloride Flush 3 Ml Syringe IVFLUSH 3 ml QSHIFT ALEJANDRO Administration Labs CBC & Chem 7: 02/17/21 05:44 02/17/21 05:44 Labs: Laboratory Results - last 24 hr 02/17/21 02/17/21 05:44 05:44 MCV 100.0 H MCH 34.0 H MCHC 34.0 RDW 14.5 Plt Count 165 MPV 10.7 Absolute Nucleated RBC 0.000 Nucleated RBC % (auto) 0.0 Anion Gap 11 L Estim Creat Clear Calc 50.2 Estimated GFR > 60 Random Glucose 108 Calcium 7.5 L Microbiology Microbiology Results: Microbiology 02/14/21 16:32 Blood - Venous Blood Culture - Preliminary No growth after 48 hours. 02/14/21 16:32 Blood - Venous Blood Culture - Preliminary No growth after 48 hours. 02/10/21 23:32 Blood - Venous Blood Culture - Final No growth after 5 days. 02/10/21 23:32 Blood - Venous Blood Culture - Final No growth after 5 days. 02/11/21 16:37 Stool Stool Culture - Final Quality Stroke Does the patient have a stroke diagnosis?: No VTE Prior VTE?: No VTE Risk Level:: Medical - moderate - high VTE Device Contraindication: N/A - Device Ordered VTE Drug Contraindication: Treatment Not Indicated
[2021-02-18] VITALS (7 sets, daily range): BP systolic 124–146; BP diastolic 59–66; PULSE 77–91; RESP 16–20; TEMP 36.7–37.4; O2SAT 93–97
[2021-02-18] MEDS: prednisoLONE Acetate 1 % Oph Susp 5 ML DRPBTL 1 DROP EYE-BOTH ×6 (05:35→20:32)
[2021-02-18] MEDS: Piperacillin Sodium/Tazobactam 3.375 GM in 0.9 % Sodium Chloride 50 ML IV ×4 (05:35→23:33)
[2021-02-18] MEDS: Acetaminophen 325 MG TABLET 650 MG PO ×2 (05:35→20:30)
[2021-02-18 06:34] LABS: Hematocrit 24.8 % (42-52); Hemoglobin 8.6 g/dl (14.0-18.0); Mean Corpuscular HGB Conc 34.7 g/dl (31.0-36.0); Mean Corpuscular Volume 100.8 fL (80-98); Mean Platelet Volume 10.8 fL (9.4-12.4); Platelet Count 176 X10*3/uL (160-400); Red Blood Count 2.46 X10*6/uL (4.60-5.80); Red Cell Distribution Width 14.5 % (11.0-16.0); White Blood Count 4.6 X10*3/uL (4.8-10.8)
[2021-02-18 07:01] LABS: Anion Gap 10 (12-20); Blood Urea Nitrogen 13 mg/dL (9-16); Calcium 7.7 mg/dL (8.4-10.2); Carbon Dioxide 24 mmol/L (22-29); Chloride 106 mmol/L (96-108); Creatinine Clr Calc Pharmacy 53.3; Estimated Glomerular Filt Rate > 60; Glucose Random 102 mg/dL (60-115); Potassium 3.9 mmol/L (3.3-5.1); Sodium 136 mmol/L (135-145)
[2021-02-18] MEDS: Meclizine HCl 25 MG TABLET PO ×2 (08:42→20:31)
[2021-02-18] MEDS: Ferrous Sulfate 324 MG TABLET.DR PO (08:42)
[2021-02-18] MEDS: Folic Acid 1 MG TABLET PO (08:42)
[2021-02-18] MEDS: Moxifloxacin HCl 0.5 % Oph Sol 3 ML DRPBTL 1 DROP EYE-RIGHT ×4 (08:42→20:31)
[2021-02-18] MEDS: Sodium Bicarbonate 650 MG TABLET PO ×2 (08:42→20:31)
[2021-02-18] MEDS: 0.9 % Sodium Chloride Flush 3 ML SYRINGE IVFLUSH ×3 (08:43→20:31)
[2021-02-18] MEDS: Omeprazole 20 MG CAPSULE.DR PO ×2 (08:43→20:31)
[2021-02-18] MEDS: Amiodarone HCL 200 MG TABLET 100 MG PO (08:43)
--- NOTE | 2021-02-18 13:27 | PM.IMPN ---
Progress Note: A&P (1) Perirectal abscess: Status: Acute Assessment and Plan: This is an 85-year-old male with past medical history of afib not on AC, CML, moderat , previous [place], HTN, HLD, BPH, MARIBEL, recent eye surgery for glaucoma who presents to the hospital after fall and syncope.? While in the ED patient developed fever, hypotension and is now admitted for sepsis as well as evaluation of syncope Perirectal abscess s/p I&D continue zosyn, will add vancomycin surgery following NSTEMI suspected type 2 from significant anemia, fall / rhabdo heparin gtt deferrred (see reasoning in cardiology notes) Echo done, no RWMA identified d/w GI / Cardiology: will use plavix over aspirin (1 week from EGD) Acute on [suspected chronic] anemia, macrocytic CLL - continue baseline meds h/h stable EGD showing grastritis / gastropathy Heme/onc consult appreciated gastritis / gastropathy ppi syncope monitor orthostatics negative SIRS on admission resolved Diarrhea C. diff negative and cultures wnl imodium PRN Metabolic acidosis, hypoK, hypoMg, DELMA all improving multifactorial from diarrhea, diamox use, dehydration Recent trabeculectomy at [facility] eye [facility] ear d/w Dr. Cook @ [phone] -- appt was scheduled for 02/16, but will need to be rescheduled continue pred forte / moxifloxacin (this was confirmed by our pharmacy with Dr. Cook) elevated liver enzymes down trending rhabdomyolysis improving with IVF thrombocytopenia -follow cbc history of AFib -not on any anticoagulation, possibly due to chronic anemia. takes baby asa -continue amiodarone and metoprolol DNR/DNI DVT pptx, mechanical Subjective Subjective Date of Service: 02/18/21 Interval History: Follow up perirectal abscess doing ok today pain to rectal area. Physical Exam Vital Signs: Vital Signs: Last Vital Signs Temp 98.1 F 02/18/21 12:00 Pulse 81 02/18/21 12:00 Resp 20 02/18/21 12:00 BP 124/59 L 02/18/21 12:00 Pulse Ox 97 02/18/21 12:00 Body Mass Index 27.2 Appearing in no acute distress lung sounds are clear to auscultation heart regular rate rhythm, clear S1, S2 positive bowel sounds, abdomen is soft, nontender neuro patient is alert x3, no focal deficits abscess draining Objective Data Current Medications Generic Name Dose Route Start Last Admin Trade Name Freq PRN Reason Stop Dose Admin Acetaminophen 650 mg 02/10/21 23:50 02/18/21 05:35 Acetaminophen 325 Mg Tablet PO 650 mg Q6H PRN Administration Pain, Mild (Pain Scale 1-3) Amiodarone HCl 100 mg 02/11/21 09:00 02/18/21 08:43 Amiodarone Hcl 200 Mg Tablet PO 100 mg DAILY ALEJANDRO Administration Docusate Sodium 100 mg 02/10/21 23:50 Docusate Sodium 100 Mg Capsule PO DAILY PRN Constipation Ferrous Sulfate 324 mg 02/14/21 14:00 02/18/21 08:42 Ferrous Sulfate 324 Mg Tablet.Dr PO 324 mg DAILY [facility] Administration Folic Acid 1 mg 02/11/21 09:00 02/18/21 08:42 Folic Acid 1 Mg Tablet PO 1 mg DAILY ALEJANDRO Administration Piperacillin Sod/Tazobactam 50 mls @ 100 mls/hr 02/15/21 18:00 02/18/21 12:46 Sod 3.375 gm/ Sodium Chloride IV Infused Q6H ALEJANDRO Infusion Vancomycin HCl 1,500 mg/ 500 mls @ 333.333 mls/hr 02/18/21 14:00 Sodium Chloride IV Q24H ALEJANDRO Loperamide HCl 2 mg 02/12/21 13:38 02/15/21 17:36 Loperamide Hcl 2 Mg Capsule PO 2 mg Q6H PRN Administration Diarrhea Meclizine HCl 25 mg 02/14/21 21:00 02/18/21 08:42 Meclizine Hcl 25 Mg Tablet PO 25 mg BID [facility] Administration Metoprolol Succinate 50 mg 02/11/21 09:00 02/16/21 09:00 Metoprolol Succinate Er 50 Mg Tab.Er.24h PO 50 mg DAILY [facility] Administration Protocol Moxifloxacin HCl 1 drop 02/11/21 13:00 02/18/21 12:46 Moxifloxacin Hcl 0.5 % Oph Rosa Maria 3 Ml Drpbtl EYE-RIGHT 1 drop QID [facility] Administration Patient Own 6 each 02/17/21 18:00 02/17/21 18:18 Medication (Imatinib PO 6 each 100 Mg Tablet) DAILY@1800 ALEJANDRO Administration Omeprazole 20 mg 02/14/21 15:30 02/18/21 08:43 Omeprazole 20 Mg Capsule.Dr PO 20 mg BID ALEJANDRO Administration Ondansetron HCl 4 mg 02/10/21 23:50 02/16/21 23:07 Ondansetron Hcl 4 Mg/2 Ml Vial IVPUSH 4 mg Q8H PRN Administration Nausea and Vomiting Pharmacy Consult 1 each 02/16/21 12:02 Consult Rx Vancomycin Dosing MISCELLANE DAILY PRN Consult order Prednisolone Acetate 1 drop 02/11/21 12:00 02/18/21 11:56 Prednisolone Acetate 1 % Oph Susp 5 Ml Drpbtl EYE-BOTH 1 drop 6XD ALEJANDRO Administration Sodium Bicarbonate 650 mg 02/11/21 16:40 02/18/21 08:42 Sodium Bicarbonate 650 Mg Tablet PO 650 mg BID ALEJANDRO Administration Sodium Chloride 3 ml 02/11/21 00:00 02/18/21 08:43 0.9 % Sodium Chloride Flush 3 Ml Syringe IVFLUSH 3 ml QSHIFT ALEJANDRO Administration Labs CBC & Chem 7: 02/18/21 05:10 02/18/21 05:10 Labs: Laboratory Results - last 24 hr 02/18/21 02/18/21 02/18/21 05:10 05:10 11:56 MCV 100.8 H MCH 35.0 H MCHC 34.7 RDW 14.5 Plt Count 176 MPV 10.8 Absolute Nucleated RBC 0.000 Nucleated RBC % (auto) 0.0 Anion Gap 10 L Estim Creat Clear Calc 53.3 Estimated GFR > 60 Random Glucose 102 Calcium 7.7 L Vancomycin Trough 7.0 L Microbiology Microbiology Results: Microbiology 02/14/21 16:32 Blood - Venous Blood Culture - Preliminary No growth after 48 hours. 02/14/21 16:32 Blood - Venous Blood Culture - Preliminary No growth after 48 hours. 02/10/21 23:32 Blood - Venous Blood Culture - Final No growth after 5 days. 02/10/21 23:32 Blood - Venous Blood Culture - Final No growth after 5 days. 02/11/21 16:37 Stool Stool Culture - Final Quality Stroke Does the patient have a stroke diagnosis?: No VTE Prior VTE?: No VTE Risk Level:: Medical - moderate - high VTE Device Contraindication: N/A - Device Ordered VTE Drug Contraindication: Treatment Not Indicated
[2021-02-18] MEDS: vancomycin HCL 1,500 MG in 0.9 % Sodium Chloride 500 ML 333.33 MG IV (14:28)
[2021-02-19] VITALS: BP 128/63; PULSE 84; RESP 18; TEMP 37.2; O2SAT 95
[2021-02-19 04:00] VITALS: BP 132/61; PULSE 82; RESP 18; TEMP 36.9; O2SAT 97
[2021-02-19] MEDS: prednisoLONE Acetate 1 % Oph Susp 5 ML DRPBTL 1 DROP EYE-BOTH ×2 (05:30→07:44)
[2021-02-19] MEDS: Piperacillin Sodium/Tazobactam 3.375 GM in 0.9 % Sodium Chloride 50 ML IV (05:30)
[2021-02-19 07:28] VITALS: BP 148/67; PULSE 82; RESP 20; TEMP 37.1; O2SAT 99
[2021-02-19] MEDS: 0.9 % Sodium Chloride Flush 3 ML SYRINGE IVFLUSH (07:44)
[2021-02-19] MEDS: Meclizine HCl 25 MG TABLET PO (07:44)
[2021-02-19] MEDS: Amiodarone HCL 200 MG TABLET 100 MG PO (07:44)
[2021-02-19] MEDS: Moxifloxacin HCl 0.5 % Oph Sol 3 ML DRPBTL 1 DROP EYE-RIGHT (07:44)
[2021-02-19] MEDS: Ferrous Sulfate 324 MG TABLET.DR PO (07:44)
[2021-02-19] MEDS: Sodium Bicarbonate 650 MG TABLET PO (07:44)
[2021-02-19] MEDS: Omeprazole 20 MG CAPSULE.DR PO (07:44)
[2021-02-19] MEDS: Folic Acid 1 MG TABLET PO (07:44)
--- NOTE | 2021-02-19 08:59 | P.DS_ITS ---
DS: Providers Provider Date of Service: 02/19/21 Date of admission: 02/10/21 23:16 Date of discharge: 02/19/21 Primary care physician: Unknown Physician Admitting clinician: Faisal Peters Attending physician on admission: Faisal Peters Consults: 02/11/21 07:48 Consult to Cardiology Routine Consulting Provider: Memo Fernandez Reason for consultation: nstemi? Has provider been notified: No 02/12/21 11:50 Consult to Gastroenterology Routine Consulting Provider: Darius Wheeler Reason for consultation: Severe anemia, +fobt 02/13/21 08:19 Consult to Hematology / Oncology Routine Consulting Provider: Stacey Pedro Reason for consultation: history of CML, now with significant anemia 02/15/21 16:32 Consult to General Surgery Routine Consulting Provider: Tee Reyes Reason for consultation: francheska-rectal abscess Attending physician on discharge: Kulwinder James Discharging clinician: Kristen Nixon DS: Diagnosis Discharge Diagnosis (1) Perirectal abscess: Status: Acute (2) NSTEMI (non-ST elevated myocardial infarction): Status: Acute DS: Medications Discharge Medications Home Medications: Home Medications Medication Instructions Recorded Confirmed amiodarone 100 mg tablet 100 mg PO DAILY 06/27/20 02/10/21 aspirin 81 mg tablet 81 mg PO DAILY 06/27/20 02/10/21 brimonidine 0.025 % eye drops 1 drp OPHTHALMIC (EYE) TID 06/27/20 02/12/21 ascorbic acid (vitamin C) 1,500 mg 1,000 tab PO .QD tab 07/19/20 02/10/21 tablet omeprazole 20 mg capsule,delayed 20 mg PO BID cap 11/07/20 02/12/21 release ferrous sulfate 325 mg (65 mg 325 mg PO DAILY 12/26/20 02/10/21 iron) tablet folic acid 400 mcg tablet 0.4 mg PO DAILY 12/26/20 02/10/21 moxifloxacin 0.5 % eye drops 1 drp OPHTHALMIC-RIGHT QID 02/10/21 02/11/21 pilocarpine HCl 2 % eye drops 1 drp OPHTHALMIC (EYE) QID 02/10/21 02/10/21 prednisolone acetate 1 % eye 1 drp OPHTHALMIC (EYE) 6XD 02/10/21 02/11/21 drops,suspension acetazolamide 500 mg 1 cap PO BID 02/12/21 02/12/21 capsule,extended release imatinib 100 mg tablet 600 mg PO DAILY@1800 02/12/21 02/17/21 metoprolol succinate 25 mg 25 mg PO DAILY 02/12/21 02/12/21 tablet,extended release 24 hr timolol 0.5 % eye drops 1 drp OPHTHALMIC (EYE) BID 02/12/21 02/12/21 DS: Summary Hospital Course Hospital Course: HP as per admitting provider This is an 85-year-old male with past medical history of aortic stenosis, AFib, BPH, CAD, GERD, HTN, HLD, who presents to the hospital after fall and syncope.? Patient reports that he was in the bathroom, his slipped fell head his head than loss consciousness, he woke up few minutes later, tried to get up, slipped for 2nd time hit his head again and once again loss consciousness this time he is not sure for how long but reports that he woke up and was unable to get out of his bathroom and was on the bathroom floor all night until the next day afternoon when his family checked on him and found him on the floor.? Patient denies any post ictal symptoms.? He reports that prior to falling he had no symptoms of dizziness, no chest pain, palpitations or shortness of breath.? no headache, no change in vision.? He reports that he has not been eating or drinking well and may be contributing to his fall.? He denies any abdominal pain nausea or vomiting, no diarrhea constipation, no urinary symptoms. Patient did have injuries on the had as a result of his falls, with minimal bleeding. Vitals on arrival are significant for temp of 99.4 but developed a fever of 101.2 while in the ED, heart rate of 96, respiratory rate of 22, blood pressure 120/61 that dropped to 90/45 while in the ED, satting 99% on room air Labs are significant for WBC count of 8.2, hemoglobin of 8.5 which dropped from 10.7 from December 2020, hematocrit 23.2, MCV of 98.3, platelets of 137 143, normal lactic acid. potassium of 2.7, chloride of 118, BUN of 22, creatinine of 1.4 to with a baseline around 1.2, ferritin 409 AST of 86 ALT of 41, CPK of 2837, troponin of 6570 trended up to 6604 UA positive for RBC COVID-19 negative.? Stool occult negative. Cardiology was consulted regarding with troponin and recommended against heparin subQ. Given his hypotension as well as fever patient was given sepsis IV fluid resuscitation, blood cultures sent . Perirectal abscess. Thought to be related to a fall. Seen and examined by general surgery who performed incision and drainage. The wound was draining consistently with some yellow drainage. He was treated with Vancomycin and Zosyn while inpatient and transitioned to Augmentin and Doxycycline as outpatient. NSTEMI. Troponins are 6570; 6604; 4330. He was also noted to be in rhabomyolysis (improved with IV fluids). He was seen by cardiology, who thought that with all of his comorbidities and acute problems a secondary ND secondary to demand ischemia. He had no symptoms.. She was also anemic from his eye surgery therefore heparin IV was avoided. He was transfused and electrolytes monitored and he had no further acute cardiac issues. Acute on [suspected chronic] anemia, macrocytic. CLL. Transfused. HH remained stable. Follow up as needed with hematology. Syncope. At home, orthostatics negative. possibly secondary to anemia. No further episodes while admitted. Metabolic acidosis. Multifactorial from diarrhea, diamox use, dehydration. Resolved prior to discharge Recent trabeculectomy at [facility]. On discharge he left to [place] for an scheduled follow up appointment. Time Spent with Patient Time attestation: Total time spent providing and/or coordinating discharge services: Discharge coordination time: Greater than 30 minutes Quality: Stroke Does the patient have a stroke diagnosis?: No Physical Exam Vital Signs: Vital Signs: Last Vital Signs Temp 98.7 F 02/19/21 07:28 Pulse 82 02/19/21 07:28 Resp 20 02/19/21 07:28 BP 148/67 H 02/19/21 07:28 Pulse Ox 99 02/19/21 07:28 Body Mass Index 27.2 Appearing in no acute distress head is normocephalic atraumatic eyes pupils are PERRLA sclera is anicteric mouth throat mucous membranes are intact and moist neck is supple no lymphadenopathy, no JVD noted lung sounds are clear to auscultation heart regular rate rhythm, clear S1, S2 positive bowel sounds, abdomen is soft, nontender neuro patient is alert x3, no focal deficits DS: Data Data Completed and Pending Pending studies at discharge: Pending at discharge 02/14/21 13:36 Surgical [PTH] Routine Labs on day of discharge: Laboratory Results - last 24 hr 02/18/21 11:56 Vancomycin Trough 7.0 L Preliminary micro results at discharge 02/14/21 16:32 Blood Culture - Preliminary Blood - Venous No growth after 48 hours. 02/14/21 16:32 Blood Culture - Preliminary Blood - Venous No growth after 48 hours. Discharge Plan Discharge Anticipated Discharge Date/Time: 02/19/21 08:44 Patient Disposition: Xfer Inpatient Rehab Fac Discharge Diagnosis: Perirectal abscess NSTEMI Referrals: [facility] [Other] - 1 Week [facility] [Outside] - 1 Week Tee Reyes MD [Physician] - 1 Week (francheska-rectal abscess) Discharge Medications: New amoxicillin-pot clavulanate [Augmentin] 875-125 mg tablet 1 tab PO BID Qty: 14 RF: 0 doxycycline hyclate 100 mg tablet 100 mg PO BID Qty: 14 RF: 0 Continued aspirin 81 mg Tablet 81 mg PO DAILY RF: 0 amiodarone 100 mg Tablet 100 mg PO DAILY RF: 0 brimonidine 0.025 % Drops 1 drp OPHTHALMIC (EYE) TID RF: 0 ascorbic acid (vitamin C) 1,500 mg tablet 1,000 tab PO .QD RF: 0 omeprazole 20 mg capsule,delayed release(DR/EC) 20 mg PO BID RF: 0 prednisolone acetate 1 % drops,suspension 1 drp ophthalmic (eye) 6XD RF: 0 pilocarpine HCl 2 % drops 1 drp ophthalmic (eye) QID RF: 0 moxifloxacin 0.5 % drops 1 drp ophthalmic-Right QID RF: 0 acetazolamide 500 mg capsule, extended release 1 cap PO BID RF: 0 metoprolol succinate 25 mg Tablet Extended Release 24 Hr 25 mg PO DAILY RF: 0 imatinib 100 mg Tablet 600 mg PO DAILY@1800 RF: 0 timolol 0.5 % Drops 1 drp OPHTHALMIC (EYE) BID RF: 0 ferrous sulfate 325 mg (65 mg iron) tablet 325 mg PO DAILY RF: 0 folic acid 400 mcg tablet 0.4 mg PO DAILY RF: 0 Discharge Orders: Discharge Order (Routine); Ordered 02/19/21 Ordered By: Kristen Nixon Diet: advance to usual diet Activity on Discharge: As tolerated Stand Alone Forms: Patient Portal Discharge page Care Plan Goals: Resolution of perirectal abscess Health Concerns: Perirectal abscess NSTEMI Plan of Treatment: Follow up with your primary care provider after rehabilitation Follow up with your eye healthcare consulting manager once discharged from [facility] Follow up with general surgery within one week Assessment: See discharge summary Discharge Date/Time: 02/19/21 09:15
--- NOTE | 2021-02-19 09:01 | MHC.CM.PN ---
Patient has been medically cleared for dc today.Patient will dc from [facility] this morning and Patient's Brother will take him to his 11AM f/u appointment at [facility]. From that appointment, family will take Patient directly to STR at [facility].Patient and family are eager to be dc and a third IMM is not requested.
== END 2021-02-19 09:15 | DRG 981 ==
LOC: HO.ED 18:27 → HO.EDOVER 23:23 → HO.IMC 02-11 01:12
PROVIDERS: Internal Medicine; Nurse Practitioner Acute Care; Nurse Practitioner Primary Care; Physician Assistant Medical; Admitting Provider Internal Medicine; Emergency Provider Student in an Organized Health Care Education/Training Program; Visit Provider Family Medicine
PROC: 0DJ08ZZ Inspection of Upper Intestinal Tract, Via Natural or Artificial Opening Endoscopic (ICD-10-PCS; CPT 43235; principal; 2021-02-14 12:10)
DX: M62.82 Rhabdomyolysis (principal); I21.A1 Myocardial infarction type 2; K29.71 Gastritis, unspecified, with bleeding; K29.81 Duodenitis with bleeding; N17.9 Acute kidney failure, unspecified; E87.2 Acidosis; D62 Acute posthemorrhagic anemia; R65.10 Systemic inflammatory response syndrome (SIRS) of non-infectious origin without acute organ dysfunction; C92.11 Chronic myeloid leukemia, BCR/ABL-positive, in remission; K61.1 Rectal abscess; K21.9 Gastro-esophageal reflux disease without esophagitis; Z20.822 Contact with and (suspected) exposure to COVID-19; D69.6 Thrombocytopenia, unspecified; E86.0 Dehydration; E83.42 Hypomagnesemia; E87.6 Hypokalemia; N40.0 Benign prostatic hyperplasia without lower urinary tract symptoms; I48.0 Paroxysmal atrial fibrillation; I25.10 Atherosclerotic heart disease of native coronary artery without angina pectoris; E78.5 Hyperlipidemia, unspecified; K44.9 Diaphragmatic hernia without obstruction or gangrene; K31.9 Disease of stomach and duodenum, unspecified; Z79.82 Long term (current) use of aspirin; Z79.899 Other long term (current) drug therapy; Z66 Do not resuscitate
CPT/HCPCS: 36415; 70450; 71045; 72125; 72192; 73560; 74177; 80048; 80053; 80076; 80202; 81001; 82272; 82550; 82607; 82728; 82746; 83540; 83605; 83735; 84484; 85007; 85025; 85027; 85610; 85730; 86850; 86900; 86901; 86923; 87040; 87045; 87046; 87493; 87635; 88305; 88312; 88342; 89055; 93005; 93306; 96361; 96365; 97110; 97116; 97162; 99024; 99285; J2405; J2543; J3370; J3475; P9016; Q9967

== ENCOUNTER → 2021-03-27 09:17 | Outpatient (BNVA) | payer MEDICARE, SELFPAY | PROVIDERS: Visit Provider Surgery | DX: K61.1 Rectal abscess (principal) | CPT/HCPCS: 99212 ==

== ENCOUNTER → 2021-04-26 13:20 | Outpatient (BNVA) | payer MEDICARE, SELFPAY | PROVIDERS: Visit Provider Surgery | DX: K61.1 Rectal abscess (principal); N40.0 Benign prostatic hyperplasia without lower urinary tract symptoms; E78.00 Pure hypercholesterolemia, unspecified; I10 Essential (primary) hypertension; G47.33 Obstructive sleep apnea (adult) (pediatric); E53.8 Deficiency of other specified B group vitamins; Z87.891 Personal history of nicotine dependence | CPT/HCPCS: 99212 ==